=== PATIENT | male | born 1950 | race Caucasian/White ===

== ENCOUNTER → 2023-11-29 11:18 | Outpatient (REF) | payer OTHER, SELFPAY ==
[2023-09-05 08:41] VITALS: BMI 25.7
[2023-09-05 09:07] LABS: Urine Albumin Trace (Neg - Trace); Urine Bilirubin Negative (Negative); Urine Character Clear (Clear); Urine Color Yellow; Urine Glucose 3+ (Negative); Urine Ketone Negative (Negative); Urine Leukocyte Negative (Negative); Urine Nitrite Negative (Negative); Urine Occult Blood Negative (Negative); Urine Specific Gravity 1.015 (<1.030); Urine Urobilinogen Negative (Neg - 1+)
[2023-09-05 09:11] LABS: Hematocrit 43.4 % (39.0-52.0); Hemoglobin 15.3 g/dL (13.0-18.0); Mean Corp Hgb Conc. 35.3 g/dL (33.0-37.0); Mean Corpuscular Hgb 32.8 pg (27.0-31.0); Mean Corpuscular Volume 93.1 fL (80.0-94.0); Platelet Count 186 10^3/uL (130-400); Red Blood Cell Count 4.66 10^6/uL (4.70-6.10); Red Cell Dist. Width 11.5 % (11.5-14.5); White Blood Cell Count 11.7 10^3/uL (4.8-10.8)
[2023-09-05 09:16] LABS: INR 0.95; PT 12.5 Sec (11.4-14.6)
[2023-09-05 09:17] LABS: APTT 28.8 Sec (23.4-35.0)
[2023-09-05 09:37] LABS: Blood Urea Nitrogen 29 mg/dl (9-20); Calcium 9.9 mg/dl (8.4-10.2); Carbon Dioxide 25 mmol/L (22-30); Chloride 94 mmol/L (98-107); Estimated Creatinine Clearance 46 ml/min; Glucose 634 mg/dl (70-99); Potassium 5.7 mmol/L (3.5-5.1); Sodium 128 mmol/L (135-145); eGFR 52.41
--- NOTE | 2023-09-05 12:58 | PTCARENOTE ---
Luanne at 's office was notified of critical value glucose 634 (of note; lab had already called this critical value @ 0944) and K+ 5.7 both collected this am.
--- NOTE | 2023-09-06 13:43 | PTCARENOTE ---
Luanne in office made aware that Dr. Clemente stated pt needs to have blood sugar and potassium under control before elective surgery.
== END ==
LOC: SDSPAT 11:18
PROVIDERS: ATTENDING PHYSICIAN Specialist
DX: Z01.818 Encounter for other preprocedural examination (principal); C67.9 Malignant neoplasm of bladder, unspecified
CPT/HCPCS: 36415; 80048; 81003; 85027; 85610; 85730; 93005

== ENCOUNTER 2024-08-20 08:03 | Inpatient (IN) | payer OTHER, SELFPAY ==
[2024-08-20] VITALS (11 sets, daily range): BP systolic 98–151; BP diastolic 44–76; PULSE 63–83; O2SAT 96; BMI 21.5; BMI 21.9
[2024-08-20 02:10] LABS: % Basophils 0.7 % (0-2); % Eosinophils 0.3 % (0-6); % Immature Granulocytes 0.3 % (0-0.5); % Lymphocytes 13.3 % (20.5-51.1); % Monocytes 5.4 % (1.7-9.3); Absolute Basophils 0.1 10^3/uL (0-0.2); Absolute Lymphocytes 1.8 10^3/uL (1.2-3.4); Absolute Monocytes 0.7 10^3/uL (0.1-0.6); Absolute Neutrophils 10.7 10^3/uL (1.4-6.5); Hemoglobin 14.4 g/dL (13.0-18.0); Mean Corpuscular Hgb 31.3 pg (27.0-31.0); Mean Platelet Volume 11.8 fL (7.4-10.4); Nucleated Red Blood Cells % 0 % (-); Platelet Count 274 10^3/uL (130-400); Red Cell Dist. Width 11.2 % (11.5-14.5); White Blood Cell Count 13.4 10^3/uL (4.8-10.8)
[2024-08-20 03:01] LABS: ALT (SGPT) 19 U/L (0-50); AST (SGOT) 23 U/L (17-59); Albumin 4.3 g/dl (3.5-5.0); Alkaline Phosphatase 140 U/L (38-126); Blood Urea Nitrogen 54 mg/dl (9-20); Calcium 9.8 mg/dl (8.4-10.2); Carbon Dioxide 24 mmol/L (22-30); Chloride 81 mmol/L (98-107); Glucose 756 mg/dl (70-99); Potassium 6.6 mmol/L (3.5-5.1); Sodium 119 mmol/L (135-145); Total Bilirubin 0.9 mg/dl (0.2-1.3); Total Protein 7.4 g/dl (6.3-8.2); eGFR > 60.00
[2024-08-20] MEDS: NSS 1000 IV ×3 (04:02→14:58)
[2024-08-20 04:05] LABS: Glucose - Point of Care > 600 mg/dl (70-99)
--- NOTE | 2024-08-20 04:30 | ED.GENMED ---
History of Present Illness
General
Chief Complaint: Fainting/Passed Out
Source: patient
Exam Limitations: altered mental status
Time Seen by Provider: 08/20/24 03:49
Nursing documentation reviewed up to this point in time: agreed with
History of Present Illness
History of Present Illness:
74-year-old male type II diabetic on metformin for 20 years does not check his sugar does not drink alcohol or smoke has had weight loss polydipsia polyuria, though he tells me has been trying to lose weight, got up to use the [employer] room, passed out
possibly struck his head EMS was called found him hypoglycemic, he has had a prior head injury lives with his family, on no blood thinners
Past History
Past History
ED Past Medical History: NIDDM and Other (Head injury)
ED Past Surgical History: Brain (Unclear if he had surgery after his head injury)
Social History
Tobacco: Smoker
Alcohol: None
Drug: None
Personal:
Living: with family
Employment: Retired
Family History
Family History: Diabetes
Review of Systems
Review of Systems
All Other Systems: Not applicable
Constitutional: Reports weight loss and fatigue; Denies fever
EENT: Reports no symptoms
Respiratory: Reports no symptoms
Cardiac: Reports syncope
ABD/GI: Reports no symptoms
: Reports no symptoms
Musculoskeletal: Reports no symptoms
Neurological: Reports dizzy and weakness
Endocrine: Reports polyuria and polydipsia
Hematologic/Lymphatic: Reports no symptoms
Psychiatric: Reports no symptoms
Phy Exam
Physical Exam
Physical Exam:
Physical Exam
General: 74 male dry lips
Neck: No posterior neck pain no tongue
Heart: Tachycardia
Lungs: no acute respiratory distress. clear bilaterally
Abdomen: Nontender
Neuro: alert and oriented. no focal neurological deficits
Skin: no rash
Psychiatric: cooperative
Extremities: no edema.
Course
Orders/Labs/Results
Orders:
Orders
08/20/24 01:47
ECG [Electrocardiogram (*1)] Urgent
Reason for Study: Syncope
08/20/24 01:48
EKG- Treatment ONCE
08/20/24 01:57
Complete Blood Count/With Diff Urgent
Comprehensive Metabolic Panel Urgent
Glycohemoglobin (HgbA1c) Urgent
08/20/24 03:50
Add On- LAB Urgent
Tests Added?: hemoglobin a1c
0.9% Sodium Chloride 1000 ml [Nss] 1,000 ml IV BOLUS
08/20/24 04:13
Glucose Urgent
08/20/24 04:23
CT Cervical Spine W/o Iv Contr Urgent
Comment:
Reason For Exam: fall
CT Head W/o Iv Contrast Urgent
Comment:
Reason For Exam: fall
Abnormal Lab Results
08/20/24 08/20/24
01:57 04:04
WBC 13.4 H 10^3/uL
(4.8-10.8)
RBC 4.60 L 10^6/uL
(4.70-6.10)
MCH 31.3 H pg
(27.0-31.0)
RDW 11.2 L %
(11.5-14.5)
MPV 11.8 H fL
(7.4-10.4)
Absolute Neuts (auto) 10.7 H 10^3/uL
(1.4-6.5)
Absolute Monos (auto) 0.7 H 10^3/uL
(0.1-0.6)
Neutrophils % 80.0 H %
(42.2-75.2)
Lymphocytes % 13.3 L %
(20.5-51.1)
Sodium 119 L* mmol/L
(135-145)
Potassium 6.6 H* mmol/L
(3.5-5.1)
Chloride 81 L mmol/L
(98-107)
BUN 54 H mg/dl
(9-20)
Glucose 756 H* mg/dl
(70-99)
Alkaline Phosphatase 140 H U/L
(38-126)
POC Glucose > 600 H* mg/dl
(70-99)
08/20/24 01:57
Vital Signs
Initial and Last Documented VS:
Initial Vital Signs
Temp Pulse Resp BP Pulse Ox
98 F 74 22 140/76 98
08/20/24 01:44 08/20/24 01:44 08/20/24 01:44 08/20/24 01:44 08/20/24 01:44
Last Documented Vital Signs
Temp Pulse Resp BP Pulse Ox
97.8 F 68 12 151/72 95
08/20/24 03:48 08/20/24 03:53 08/20/24 03:53 08/20/24 03:53 08/20/24 03:53
MDM/Problems Addressed
Differential Diagnosis Includes:
Vasovagal DKA HHNK electrolyte abnormality occult trauma
MDM/Problems Addressed:
Syncope hyperglycemia
Chronic conditions affecting care: DM
Acute Exacerbation and/or Progression of Chronic Illness: DM
*Radiology
Radiology exam reviewed: preliminary read by ED provider
*Pulse Oximetry
Patient hypoxic: no
*EKG
Interpreted by ED Provider?: Yes
Interpretation: abnormal
Comparison EKG: no comparison EKG present
Heart Rate: 98
Rate: normal
Rhythm: sinus
Ischemia: non-specific ST changes
*Youth Leader Interpretation
Rate: normal
Interpretation: normal
Heart Rate: 88
Rhythm: sinus
*Critical Care Note
Total Time (30-74mins, 75-104mins- exclusive of procedures): 32
Update Note
Update Note:
Update labs are noted suspect uncontrolled diabetes main culprit here will start saline hydration consideration for insulin, EKG noted, hopefully is potassium should correct will check CT to head cervical spine
ED Attending Note
-
Portions of this chart may have been created with voice recognition software.� Occasional wrong word or��sound alike� substitutions may have occurred due to the inherent limitations of voice recognition software.
Discharge Plan
Departure
Prescriptions:
No Action
lisinopril 20 mg Tablet
20 mg PO NOON
metformin 1,000 mg Tablet
1,000 mg PO BID
glimepiride 4 mg Tablet
4 mg PO DAILY
Jardiance 10 mg Tablet
10 mg PO DAILY
Interventions
Interventions:
*Risk Screen - Suicide Last Done: 08/20/24 01:44
*General Assessment Last Done: 08/20/24 03:48
*Neglect/Abuse Screening Last Done: 08/20/24 01:44
ED- Fall Risk Assessment Last Done: 08/20/24 03:48
*ED COVID-19 Vaccine History Last Done: 08/20/24 03:48
ED- Cardiac Assessment Last Done: 08/20/24 03:48
ED- Neurological Assessment Last Done: 08/20/24 03:48
Discharge Date and Time
Print Language: DANISH
[2024-08-20 05:16] LABS: Glucose 739 mg/dl (70-99)
[2024-08-20] MEDS: NOVOLOG vial 10 UNITS SC (05:43)
[2024-08-20 06:27] LABS: Blood Urea Nitrogen 51 mg/dl (9-20); Calcium 9.4 mg/dl (8.4-10.2); Carbon Dioxide 25 mmol/L (22-30); Chloride 86 mmol/L (98-107); Estimated Creatinine Clearance 59 ml/min; Potassium 5.9 mmol/L (3.5-5.1); Sodium 124 mmol/L (135-145); eGFR > 60.00
[2024-08-20 06:44] LABS: Glucose 630 mg/dl (70-99)
--- NOTE | 2024-08-20 06:54 | HPS.HSE ---
Family Physician
-
Family Physician: Niecy Zhong
Chief Complaint
-
Syncope
History of Present Illness
Patient is a 74y M with PMH significant for prior TBI and DM-II who presents to ED for evaluation after syncopal event. History obtained from ED staff and from patient to some extent.
Patient is not sure why he is currently in the hospital. Thinks maybe it was 'stomach problems'. Apparently he fell at home this evening / ? passed out while walking to the bathroom. Family responded to the sound of him falling and 911 was
called. Patient was markedly hyperglycemic for EMS and was brought to the ED for further evaluation.
At the time of my examination, patient is awake and alert. He denies any complaints at present.
He denies chest pain, palpitations, SOB, N/V/D, etc.
Glucose in the ED is significantly elevated.
Medical History
Past Medical History
Past Medical History: Reports Other
Additional Past Medical History:
DM-II
TBI
Hypertension
Past Surgical History: Reports Other
Additional Past Surgical History:
T&A
Salivary Gland Excision
Social History
Tobacco: Smoker (Current every day smoker.)
Alcohol: None
Drug: None
Family History
Family History: Not pertinent
Allergies / Home Medications
Allergies reflects when Allergies were last updated in [facility]
Home Medications with original date entered in [facility]
Allergy/Medication List:
Patient states that his only current medication is metformin.
If medication reconciliation has not been performed, why?: Medication List N/A (TBI - ? unreliable history.)
Review of Systems
-
History Source: Patient
A 12 point ROS was completed and negative except as noted: Yes
Constitutional: Denies Fever or Chills
Respiratory: Denies Cough or Trouble Breathing
Cardiac: Denies Chest Pain or Palpitations
Abdomen/GI: Denies Abdominal Pain, Nausea, Vomiting or Diarrhea
Musculoskeletal: Denies Joint Pain or Edema
Neurological: Denies Dizzy or Headache
Physical Exam
Vital Signs
Vital Signs
Temp Pulse Resp BP Pulse Ox
97.8 F 68 12 151/72 95
08/20/24 03:48 08/20/24 03:53 08/20/24 03:53 08/20/24 03:53 08/20/24 03:53
Physical Exam
General: Other (74y M in no acute distress.)
HEENT: PERRLA and Other (Dry MM.)
Respiratory: Clear; No Wheezes, Rales or Rhonchi
Cardiac: S1/S2 and Regular Rhythm; No Murmur
GI: Soft, Non Tender, Non Distended and Normal Bowel Sounds
Musculoskeletal: No Clubbing, No Cyanosis and No Edema
Neuro: Awake, Alert and Nonfocal/grossly intact; No Oriented
Laboratory Results
-
08/20/24 01:57
08/20/24 06:01
Laboratory Results
Total Bilirubin 0.9 mg/dl (0.2-1.3) 08/20/24 01:57
AST 23 U/L (17-59) 08/20/24 01:57
ALT 19 U/L (0-50) 08/20/24 01:57
Alkaline Phosphatase 140 U/L (38-126) H 08/20/24 01:57
Impression/Plan
-
A/P: Patient is a 74y M with PMH significant for DM-II who presents to ED for evaluation after syncopal episode / fall at home.
Syncope / Fall
- Admit for further evaluation and treatment.
- Likely secondary to hypovolemia / hyperglycemia.
- Monitor on telemetry for any arrhythmia.
- Follow for any recurrent symptoms.
- CT in the ED unremarkable. Not on any blood thinners, etc.
- Follow for any new neurologic changes and consider repeat imaging if indicated.
DM-II with Marked Hyperglycemia
Pseudohyponatremia secondary to the above
- No elevated anion gap c/w DKA.
- Aggressive IVF support and follow for improvement.
- Begin basal : bolus insulin regimen and adjust as needed for adequate control.
- Hold PO medications acutely.
- Update A1C.
Hyperkalemia
Azotemia
- IVFs as noted above.
- Bladder scan protocol / rule out retention as component - though SCr is normal.
Benign Hypertension
- Patient states that he is only on metformin - though prior records include lisinopril and other meds.
- Formal med rec in the AM.
- Follow BP and consider oral agents if needed.
History of TBI
- Patient questionable historian at times given prior h/o TBI / known cognitive impairment.
DVT Prophylaxis: SCDs
Code Status: Full
[2024-08-20 07:10] LABS: Glucose - Point of Care 485 mg/dl (70-99)
[2024-08-20 07:40] LABS: Glucose 463 mg/dl (70-99)
[2024-08-20 09:37] LABS: Glucose - Point of Care 323 mg/dl (70-99)
[2024-08-20] MEDS: LANTUS 0.1 UNITS SC (09:38)
[2024-08-20 09:49] LABS: Potassium 4.5 mmol/L (3.5-5.1)
[2024-08-20] MEDS: NOVOLOG FLEXPEN-MODERATE RESISTANCE SC ×2 (10:03→16:49)
[2024-08-20 10:12] LABS: TSH Reflex To Free T4 1.25 uIU/ml (0.47-4.68)
[2024-08-20 10:40] LABS: Urine Albumin Negative (Neg - Trace); Urine Bilirubin Negative (Negative); Urine Character Clear (Clear); Urine Color Yellow; Urine Glucose 3+ (Negative); Urine Ketone 1+ (Negative); Urine Leukocyte 1+ (Negative); Urine Nitrite Negative (Negative); Urine Occult Blood Negative (Negative); Urine Urobilinogen Negative (Neg - 1+)
[2024-08-20 11:23] LABS: Glucose - Point of Care 336 mg/dl (70-99)
--- NOTE | 2024-08-20 11:29 | EDRN ---
Lunch diet tray ordered for pt.
[2024-08-20 11:46] LABS: Glycohemoglobin (HgbA1c) 19.4 % (4.0-5.6)
--- NOTE | 2024-08-20 12:15 | PN.DE.MGMTRT ---
Insulin Management
- -
08/20/2024 Diabetes Management Consult
Patient admitted with c/o fainting/passed out. 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 Prior to admission patient was ordered metformin 1000 mg BID, Jardiance 10 mg daily, glimepiride 4 mg daily. A1C on admission 19.4%, cr 1,
eGFR > 60.
I spoke with patients nurse who states patient has been confused, pulling out IV, and other devices, so now has a 1:1.
Patient asleep, awakened easily, alert and oriented. Able to discuss his pre hospital diabetes care. States his primary doctor manages his diabetes; he has no idea what an A1C is and if he ever had the test. He states he has been taking his
diabetes meds and has not missed any doses. He states he has a at home who could help him if needed; he is agreeable to me reaching out to discuss with her. I spoke to patients who states she works and her son also works so they would
not be here all the time to help patient.
Glucose on admission 739, he has received novolog 10 units and lantus 10 units, pre lunch glucose 336.
Due to lack of assistance at home will change insulin to 70/30 BID, first dose with dinner 12 units and check 3 AM glucose.
Discussed with nurse.
Diabetes History
- -
Type of Diabetes: 2 requiring insulin
Pre-Admission Diabetes Regimen
08/20/24 08/20/24
:57 06:01
Creatinine 1.1 1.0
Lab Results
Hemoglobin A1c 19.4 % (4.0-5.6) H 08/20/24 01:57
Insulin Pump Settings
IP Diabetes Regimen
08/20/24 08/20/24 08/20/24
04:04 04:13
Glucose 756 H* 739 H*
POC Glucose > 600 H*
08/20/24 08/20/24 08/20/24
06:01 07:08 07:14
Glucose 630 H* 463 H*
POC Glucose 485 H*
08/20/24 08/20/24
09:35 11:21
Glucose
POC Glucose 323 H 336 H
Patient Education
[2024-08-20 13:26] LABS: Urine Bacteria Few (Negative); Urine Red Blood Cell None Seen /HPF (0-2)
[2024-08-20 13:41] LABS: Glucose - Point of Care 338 mg/dl (70-99)
[2024-08-20] MEDS: NOVOLOG FLEXPEN-MODERATE RESISTANCE 7 UNITS SC (13:49)
[2024-08-20] MEDS: NOVOLOG FLEXPEN 5 UNITS SC (13:52)
--- NOTE | 2024-08-20 14:01 | EDRN ---
Pt eating his lunch at this time.
--- NOTE | 2024-08-20 15:01 | W.PN.UPDATE ---
Update Note
Progress Note Update
Correct Na - 130
hgba1c 19.6
Will provide aggressive fluid resuscitation as more than likely has been volume depleted due to hyperglycemia
monitor bmp closely
--- NOTE | 2024-08-20 15:20 | EDRN ---
15:01 ordered BMP drawn and sent to lab at this time prior to pt going up to admission bed.
[2024-08-20 15:47] LABS: Blood Urea Nitrogen 44 mg/dl (9-20); Calcium 7.9 mg/dl (8.4-10.2); Carbon Dioxide 23 mmol/L (22-30); Chloride 102 mmol/L (98-107); Estimated Creatinine Clearance 73 ml/min; Glucose 252 mg/dl (70-99); Potassium 3.7 mmol/L (3.5-5.1); Sodium 131 mmol/L (135-145); eGFR > 60.00
[2024-08-20] MEDS: LR 1000 IV ×3 (15:47→23:15)
[2024-08-20 16:47] LABS: Glucose - Point of Care 136 mg/dl (70-99)
[2024-08-20] MEDS: NOVOLOG MIX 70/30 FLEXPEN 12 UNITS SC (16:51)
[2024-08-20 22:01] LABS: Glucose - Point of Care 215 mg/dl (70-99)
[2024-08-21 02:59] LABS: Glucose - Point of Care 281 mg/dl (70-99)
[2024-08-21 03:45] VITALS: BP 127/67
--- NOTE | 2024-08-21 04:46 | PTCARENOTE ---
received pt this evening AAOx1, only oriented to person and very confused. when asking pt where he is he responds '[facility]', and when asking pt what month and year it is he responds 'September 1986'. pt is unsure of why he is in the hospital. pt
frequently setting off bed alarm through out the night and requesting to leave despite multiple attempts at redirection and education. pt resting in bed at present, will continue to monitor closely.
--- NOTE | 2024-08-21 05:30 | PTCARENOTE ---
pt getting increasingly agitated, pulled IV out, and refusing to leave tele monitor on. IVF on standby. SHEET ROCK APPLIER made aware, plan of care ongoing.
--- NOTE | 2024-08-21 05:33 | W.PN.UPDATE ---
Update Note
Progress Note Update
2533 informed by RN that pt becoming more agitated wanting to leave. Pulled out iv and took tele monitor off. ONly alert to self so unlikely can let pt sign out AMA. Will leave fluids and tele off for now.
[2024-08-21 06:00] VITALS: BMI 21.8
[2024-08-21 07:05] LABS: Glucose - Point of Care 367 mg/dl (70-99)
[2024-08-21 07:45] VITALS: BP 110/55
--- NOTE | 2024-08-21 07:51 | PN.DE.MGMTRT ---
Insulin Management
- -
08/21/2024 Diabetes Management Consult Follow up
Patient admitted 08/20 with c/o fainting/passed out. 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 Prior to admission patient was ordered metformin 1000 mg BID, Jardiance 10 mg daily, glimepiride 4 mg daily. A1C on admission 19.4%,
cr 1, eGFR > 60.
Patient awake, alert confused. He is in a lexii-chair at the nurses station. He has pulled his IV and removed his monitor leads multiple times.
Glucose on admission 739, he has received novolog 10 units and lantus 10 units, pre lunch glucose 336.
08/20 Due to lack of assistance at home insulin changed to 70/30 BID, first dose with dinner 12 units, hs glucose 215, 3AM glucose 281. Fasting glucose 367.
Will increase 70/30 to 18 units with moderate corrective insulin.
I attempted to instruct patient on steps for taking insulin. I provided the printed instructions with pictures of each step to prepare and inject pen. He needs verbal cues for each step even after demonstration x 2. Will return with home pen
needles and try again.
Returned to instruct patient at 11:45, patient continues to need verbal cues for each step of preparing and injecting.
Patient is NOT safe to self inject insulin at this time. Perhaps with reinforcement he will be able to be independent. He does have a 1:1 who is willing to reinforce steps with him.
Patient states he has a glucose monitor at home and tested his glucose 2 times per day. He states the results were running 120 to 250. With A1C of 19.4% it is unrealistic that patient got any result other than > 500 or HI, which is greater than
600 mg/dL Provided Contour Next meter to be sure he has a working glucose monitor.
I spoke to patients 08/20 who states she works and her son also works so they would not be home all the time to help patient.
Discussed with nurse.
Diabetes History
- -
Type of Diabetes: 2 requiring insulin
Pre-Admission Diabetes Regimen
08/20/24
15:19
Creatinine 0.8
Lab Results
Hemoglobin A1c 19.4 % (4.0-5.6) H 08/20/24 01:57
Insulin Pump Settings
IP Diabetes Regimen
08/20/24 08/20/24 08/20/24
09:35 11:21 13:40
Glucose
POC Glucose 323 H 336 H 338 H
08/20/24 08/20/24 08/20/24
15:19 16:45 22:00
Glucose 252 H
POC Glucose 136 H 215 H
08/21/24 08/21/24
02:58 07:04
Glucose
POC Glucose 281 H 367 H
Patient Education
[2024-08-21] MEDS: NOVOLOG FLEXPEN-MODERATE RESISTANCE 9 UNITS SC (07:52)
[2024-08-21] MEDS: NOVOLOG MIX 70/30 FLEXPEN 18 UNITS SC ×2 (08:09→16:53)
[2024-08-21 08:20] LABS: Hematocrit 35.9 % (39.0-52.0); Hemoglobin 12.7 g/dL (13.0-18.0); Mean Corp Hgb Conc. 35.4 g/dL (33.0-37.0); Mean Corpuscular Hgb 30.9 pg (27.0-31.0); Mean Corpuscular Volume 87.3 fL (80.0-94.0); Mean Platelet Volume 11.7 fL (7.4-10.4); Platelet Count 232 10^3/uL (130-400); Red Blood Cell Count 4.11 10^6/uL (4.70-6.10); Red Cell Dist. Width 11.2 % (11.5-14.5); White Blood Cell Count 10.5 10^3/uL (4.8-10.8)
[2024-08-21 08:34] LABS: ALT (SGPT) 14 U/L (0-50); AST (SGOT) 32 U/L (17-59); Albumin 3.2 g/dl (3.5-5.0); Alkaline Phosphatase 92 U/L (38-126); Blood Urea Nitrogen 32 mg/dl (9-20); Calcium 8.6 mg/dl (8.4-10.2); Carbon Dioxide 22 mmol/L (22-30); Chloride 97 mmol/L (98-107); Direct Bilirubin 0.1 mg/dl (0.0-0.4); Estimated Creatinine Clearance 74 ml/min; Glucose 355 mg/dl (70-99); Phosphorus 3.1 mg/dl (2.5-4.5); Potassium 4.6 mmol/L (3.5-5.1); Sodium 127 mmol/L (135-145); Total Bilirubin 0.6 mg/dl (0.2-1.3); Total Protein 6.1 g/dl (6.3-8.2); eGFR > 60.00
[2024-08-21 11:06] VITALS: BP 120/63
[2024-08-21] MEDS: LR 1000 IV ×3 (11:42→18:47)
[2024-08-21 11:44] LABS: Glucose - Point of Care 231 mg/dl (70-99)
[2024-08-21] MEDS: NOVOLOG FLEXPEN-MODERATE RESISTANCE 3 UNITS SC (11:49)
--- NOTE | 2024-08-21 12:31 | CM ---
Pt seen bedside w/ 1:1 staff. Initial assessment completed. Admitted for syncope.
Pt reports that he lives w/ spouse in a 2STH- 5 steps to enter. Pt reports he is independent w/ ambulating, no DME identified for daily functioning.
Pt denies SNF/VN/PT.
Address, point of contact and insurance verified
PCP: Dr. Zhong
Pharmacy: [facility]
PT/OT evaluated pt and is currently recommending skilled rehab at this time. CM discussed SNF w/ pt. Pt disagrees of needing rehab stating he goes to the gym and works out, last time being last Monday. Pt stood up from his chair to show he
doesn't need physical therapy w/ 1:1 supporting him. Pt instructed to sit back down. Per nurse, pt almost fell attempting to reach for walker and definitely needs rehab as his legs will buckle when standing and does not hold any strength.
CM consulted for advanced directive. CM offered paperwork, pt denied needing it
Plan: SNF; pt is currently declining need. CM will discuss w/ spouse
[2024-08-21] MEDS: LR IV (13:13)
--- NOTE | 2024-08-21 14:01 | W.PN.HOSP.TC ---
Today's Communication/Plan
-
insulin regimen
ivf
Assessment / Plan
Assessment / Plan
Physical Exam
General: Other (74y M in no acute distress.)
HEENT: PERRLA and Other (Dry MM.)
Respiratory: Clear; No Wheezes, Rales or Rhonchi
Cardiac: S1/S2 and Regular Rhythm; No Murmur
GI: Soft, Non Tender, Non Distended and Normal Bowel Sounds
Musculoskeletal: No Clubbing, No Cyanosis and No Edema
Neuro: Awake, Alert x1 and Nonfocal/grossly intact; No Oriented
A/P: Patient is a 74y M with PMH significant for DM-II who presents to ED for evaluation after syncopal episode / fall at home. Noted to be severely hyperglycemic
Syncope / Fall
- Admit for further evaluation and treatment.
- Likely secondary to hypovolemia / hyperglycemia.
- Monitor on telemetry for any arrhythmia.
- Follow for any recurrent symptoms.
- CT in the ED unremarkable. Not on any blood thinners, etc.
- Follow for any new neurologic changes and consider repeat imaging if indicated.
-Resuscitation
DM-II with Marked Hyperglycemia
Pseudohyponatremia secondary to the above
- No elevated anion gap c/w DKA.
- Aggressive IVF support and follow for improvement.
- Begin basal : bolus insulin regimen and adjust as needed for adequate control.
- Hold PO medications acutely.
- Update A1C: 19.4
-DM MILLER DISTILLERY consulted, adjust insulin as needed
#Hyponatremia
-more than likely hypovolemic with significant hyperglycemia
-monitor with resuscitation
Hyperkalemia
Azotemia
- IVFs as noted above.
-resolved
Benign Hypertension
- Patient states that he is only on metformin - though prior records include lisinopril and other meds.
- will not add any further bp meds - normotensive
History of TBI
Metabolic Encepholpathy
- Patient questionable historian at times given prior h/o TBI / known cognitive impairment.
-patient not safe to go home, obviously as per hba1ac and lack of orientation
DVT Prophylaxis: SCDs
Code Status: hsq
Anticipated Discharge: 24 - 48 hours
Subjective/Interval History
-
Date of Service: August 21, 2024
sitting in chair , no changes
Objective Data
-
Labs:
Laboratory Results
08/21/24
07:57
WBC 10.5
Hgb 12.7 L
Hct 35.9 L
Plt Count 232
Sodium 127 L
Potassium 4.6
Chloride 97 L
Carbon Dioxide 22
BUN 32 H
Creatinine 0.8
Glucose 355 H
Calcium 8.6
Total Bilirubin 0.6
AST 32
ALT 14
Alkaline Phosphatase 92
Vital Signs:
Vital Signs
Temp Pulse Resp BP Pulse Ox
97.8 F 73 18 120/63 97
08/21/24 11:06 08/21/24 11:06 08/21/24 07:45 08/21/24 11:06 08/21/24 07:45
I&O
08/20/24 08/21/24 08/22/24
06:59 06:59 06:59
Intake Total 1890 / 1890 720 / 720
Output Total 1300 / 1300 400 / 400
Balance 590 / 590 320 / 320
Review of Systems
-
History Source: Patient
All other systems: Not reviewed unless documented
Data Reviewed
-
CT Scan: Report Reviewed by me
Labs: Labs Reviewed by me
--- NOTE | 2024-08-21 14:27 | PTCARENOTE ---
Patient had and assisted fall. Refer to incident report.
[2024-08-21 14:52] VITALS: BMI 21.8
[2024-08-21 15:47] VITALS: BP 113/54; BP 118/58; BP 120/59; PULSE 76; PULSE 83; PULSE 92
[2024-08-21 16:50] LABS: Glucose - Point of Care 191 mg/dl (70-99)
[2024-08-21] MEDS: NOVOLOG FLEXPEN-MODERATE RESISTANCE 1 UNITS SC (16:52)
[2024-08-21] MEDS: HEPARIN 5000 UNITS SC ×2 (16:52→23:23)
[2024-08-21 22:03] LABS: Glucose - Point of Care 100 mg/dl (70-99)
[2024-08-21 23:30] VITALS: BP 118/56
[2024-08-22 02:47] LABS: Glucose - Point of Care 169 mg/dl (70-99)
[2024-08-22] MEDS: ZYPREXA 5 MG IM (03:06)
--- NOTE | 2024-08-22 03:22 | W.PN.UPDATE ---
Update Note
Progress Note Update
RN reported patient trying to leave the room. Patient seen and evaluated. Patient AA Oriented to his name, standing, home security alarm installer at bedside. Upon inquiring where he is currently, responded he is 'at [place] and getting ready to go home'.. Trying to
pull IV line, IV d/c'd at present. Patient noted to be agitated, wanting to leave home now, unable to verbally child guidance counselor, Unable to reorient him at this time. Will wrist restraint for protective intervention and tube removal. Will give Zyprexa IM for
agitation. May need Psychologist
[2024-08-22] MEDS: LR 1000 IV ×2 (04:14→14:28)
--- NOTE | 2024-08-22 04:24 | PTCARENOTE ---
pt increasingly agitated despite multiple attempts to reorient, requesting to leave, standing at the bedside very unsteady. security came to see pt to help deescalate as well as FILLER LEAF CUTTER LONG. FILLER LEAF CUTTER LONG assessed pt and new orders placed for nonviolent soft limb
restraints and zyprexa 5mg IM. will continue to monitor pt closely.
[2024-08-22 07:47] VITALS: BP 146/77
[2024-08-22 07:53] LABS: Hematocrit 33.3 % (39.0-52.0); Hemoglobin 11.9 g/dL (13.0-18.0); Mean Corp Hgb Conc. 35.7 g/dL (33.0-37.0); Mean Corpuscular Hgb 31.2 pg (27.0-31.0); Mean Corpuscular Volume 87.2 fL (80.0-94.0); Mean Platelet Volume 11.3 fL (7.4-10.4); Platelet Count 188 10^3/uL (130-400); Red Blood Cell Count 3.82 10^6/uL (4.70-6.10); Red Cell Dist. Width 11.1 % (11.5-14.5); White Blood Cell Count 9.1 10^3/uL (4.8-10.8)
[2024-08-22 07:55] LABS: Glucose - Point of Care 133 mg/dl (70-99)
--- NOTE | 2024-08-22 08:24 | PN.DE.MGMTRT ---
Insulin Management
- -
08/22/2024 Diabetes Management Consult Follow up
Patient admitted 08/20 with c/o fainting/passed out. 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 Prior to admission patient was ordered metformin 1000 mg BID, Jardiance 10 mg daily, glimepiride 4 mg daily. A1C on admission 19.4%,
cr 1, eGFR > 60.
Patient awake, alert confused. He is in a lexii-chair at the nurses station. He has pulled his IV and removed his monitor leads multiple times.
Glucose on admission 739, he has received novolog 10 units and lantus 10 units, pre lunch glucose 336.
08/20 Due to lack of assistance at home insulin changed to 70/30 BID.
08/21 70/30 increased to 18 units BID with moderate corrective insulin. Glucose improved to 100 @ HS and 133 fasting. 08/22 Will change moderate corrective to low corrective and continue 70/30 at 18 units. Patient is UNSAFE to self administer
insulin at this time
08/21 I attempted to instruct patient on steps for taking insulin. I provided the printed instructions with pictures of each step to prepare and inject pen. He needs verbal cues for each step even after demonstration x 2. Will return with home
pen needles and try again.
Returned to instruct patient at 11:45, patient continues to need verbal cues for each step of preparing and injecting.
Patient is NOT safe to self inject insulin at this time. Perhaps with reinforcement he will be able to be independent. He does have a 1:1 who is willing to reinforce steps with him.
Patient states he has a glucose monitor at home and tested his glucose 2 times per day. He states the results were running 120 to 250. With A1C of 19.4% it is unrealistic that patient got any result other than > 500 or HI, which is greater than
600 mg/dL Provided Contour Next meter to be sure he has a working glucose monitor.
I spoke to patients 08/20 who states she works and her son also works so they would not be home all the time to help patient.
Discussed with nurse.
Diabetes History
- -
Type of Diabetes: 2 requiring insulin
Pre-Admission Diabetes Regimen
08/21/24
07:57
Creatinine 0.8
Lab Results
Hemoglobin A1c 19.4 % (4.0-5.6) H 08/20/24 01:57
Insulin Pump Settings
IP Diabetes Regimen
08/21/24 08/21/24 08/21/24
07:57 11:42 16:48
Glucose 355 H
POC Glucose 231 H 191 H
08/21/24 08/22/24 08/22/24
22:02 02:45 07:54
Glucose
POC Glucose 100 H 169 H 133 H
Meal type: Dinner
Meal type: Lunch
Meal type: Breakfast
Amount consumed: 100%
Amount consumed: 100%
Amount consumed: 100%
Patient Education
[2024-08-22 08:57] LABS: ALT (SGPT) 18 U/L (0-50); AST (SGOT) 37 U/L (17-59); Albumin 3.2 g/dl (3.5-5.0); Alkaline Phosphatase 89 U/L (38-126); Blood Urea Nitrogen 20 mg/dl (9-20); Calcium 8.5 mg/dl (8.4-10.2); Carbon Dioxide 25 mmol/L (22-30); Chloride 101 mmol/L (98-107); Glucose 123 mg/dl (70-99); Potassium 3.9 mmol/L (3.5-5.1); Sodium 135 mmol/L (135-145); Total Bilirubin 0.8 mg/dl (0.2-1.3)
[2024-08-22 09:18] LABS: Estimated Creatinine Clearance 85 ml/min; eGFR > 60.00
[2024-08-22] MEDS: NOVOLOG FLEXPEN-MODERATE RESISTANCE SC (09:19)
[2024-08-22] MEDS: HEPARIN 5000 UNITS SC ×2 (09:20→16:43)
[2024-08-22] MEDS: NOVOLOG MIX 70/30 FLEXPEN 18 UNITS SC ×2 (09:21→16:48)
[2024-08-22 11:41] LABS: Glucose - Point of Care 195 mg/dl (70-99)
[2024-08-22] MEDS: NOVOLOG FLEXPEN-LOW RESISTANCE 1 UNITS SC (11:43)
[2024-08-22 11:54] VITALS: BP 132/103; BP 134/55; BP 88/56; PULSE 76; PULSE 79; PULSE 87
--- NOTE | 2024-08-22 13:50 | W.PN.HOSP.TC ---
Today's Communication/Plan
-
Seroquel and attempt to remove one-to-one
LR bolus, orthos
Assessment / Plan
Assessment / Plan
Physical Exam
General: Other (74y M in no acute distress.)
HEENT: PERRLA and Other (Dry MM.)
Respiratory: Clear; No Wheezes, Rales or Rhonchi
Cardiac: S1/S2 and Regular Rhythm; No Murmur
GI: Soft, Non Tender, Non Distended and Normal Bowel Sounds
Musculoskeletal: No Clubbing, No Cyanosis and No Edema
Neuro: Awake, Alert x1 and Nonfocal/grossly intact; No Oriented
A/P: Patient is a 74y M with PMH significant for DM-II who presents to ED for evaluation after syncopal episode / fall at home. Noted to be severely hyperglycemic
Syncope / Fall
- Admit for further evaluation and treatment.
- Likely secondary to hypovolemia / hyperglycemia.
- Monitor on telemetry for any arrhythmia.
- Follow for any recurrent symptoms.
- CT in the ED unremarkable. Not on any blood thinners, etc.
- Follow for any new neurologic changes and consider repeat imaging if indicated.
-Resuscitation
#Orthostatic Hypotension
- LR bolus now
-may need midodrine and compression stockings/abd binder
DM-II with Marked Hyperglycemia
Pseudohyponatremia secondary to the above
- No elevated anion gap c/w DKA.
- Aggressive IVF support and follow for improvement.
- Begin basal : bolus insulin regimen and adjust as needed for adequate control.
- Hold PO medications acutely.
- Update A1C: 19.4
-DM STRIP CATCHER consulted, adjust insulin as needed
#Hyponatremia, resolved
-more than likely hypovolemic with significant hyperglycemia
-monitor with resuscitation
Hyperkalemia
Azotemia
- IVFs as noted above.
-resolved
Benign Hypertension
- Patient states that he is only on metformin - though prior records include lisinopril and other meds.
- will not add any further bp meds - normotensive
History of TBI
Metabolic Encepholpathy
- Patient questionable historian at times given prior h/o TBI / known cognitive impairment.
-patient not safe to go home, obviously as per hba1ac and lack of orientation
DVT Prophylaxis: hsq
Anticipated Discharge: Within 24 hours
Subjective/Interval History
-
Date of Service: August 22, 2024
agitated overnight, given Zyprexa
Objective Data
-
Labs:
Laboratory Results
08/22/24
07:40
WBC 9.1
Hgb 11.9 L
Hct 33.3 L
Plt Count 188
Sodium 135 D
Potassium 3.9
Chloride 101
Carbon Dioxide 25
BUN 20
Creatinine 0.7
Glucose 123 H
Calcium 8.5
Total Bilirubin 0.8
AST 37
ALT 18
Alkaline Phosphatase 89
Vital Signs:
Vital Signs
Temp Pulse Resp BP Pulse Ox
97.7 F 84 17 146/77 98
08/22/24 11:54 08/22/24 07:47 08/22/24 11:54 08/22/24 07:47 08/22/24 11:54
I&O
08/21/24 08/22/24 08/23/24
06:59 06:59 06:59
Intake Total 1890 / 1890 4020 / 4020
Output Total 1300 / 1300 1600 / 1600
Balance 590 / 590 2420 / 2420
Review of Systems
-
History Source: Patient
All other systems: Not reviewed unless documented
Data Reviewed
-
CT Scan: Report Reviewed by me
Labs: Labs Reviewed by me
--- NOTE | 2024-08-22 14:19 | CM ---
Patient seen at bedside, patient still with 1:1 and indicated that he was resting comfortably. CM called to patient and started to leave a VM for Patient , when someone picked up the phone and stated she was not corina and hung up. CM will
continue to follow for discharge planning needs.
Plan; SNF; pending family contact and choices.
[2024-08-22] MEDS: LR IV (14:27)
[2024-08-22 15:57] VITALS: BP 109/66
[2024-08-22 16:45] LABS: Glucose - Point of Care 120 mg/dl (70-99)
[2024-08-22] MEDS: NOVOLOG FLEXPEN-LOW RESISTANCE SC (16:47)
--- NOTE | 2024-08-22 17:46 | PTCARENOTE ---
Received patient this am AAOX 1. Pt confused. Pt on 1:1. Pt ambulated to bathroom with rolling walker an assistance x1. Tolerated diet well. Pt being transferred to room 430. Report called an patient transferred.
--- NOTE | 2024-08-22 17:56 | PTCARENOTE ---
Patient received at 1730 from [facility] awake and alert, oriented to person . Is restless with mild agitation with redirection. On bed and chair alarm. No distess noted.
[2024-08-22] MEDS: SEROQUEL 12.5 MG PO (21:04)
[2024-08-22 21:40] LABS: Glucose - Point of Care 84 mg/dl (70-99)
[2024-08-22] MEDS: HEPARIN SC (22:50)
[2024-08-22 23:34] VITALS: BP 102/45; BP 118/48; BP 125/59; PULSE 101; PULSE 79; PULSE 87
[2024-08-23 06:00] VITALS: BMI 22.1
[2024-08-23 07:08] LABS: Glucose - Point of Care 243 mg/dl (70-99)
--- NOTE | 2024-08-23 07:22 | PN.DE.MGMTRT ---
Insulin Management
- -
08/23/2024 Diabetes Management Follow up
Patient admitted 08/20 with c/o fainting/passed out. 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 Prior to admission patient was ordered metformin 1000 mg BID, Jardiance 10 mg daily, glimepiride 4 mg daily. A1C on admission 19.4%, cr
1, eGFR > 60.
Patient awake, alert, a bit confused but able to participate in discuss regarding diabetes care. Remains on 1:1 sitter.
Glucose on admission 739, he was initially treated with basal/bolus regimen and was switched to 70/30 BID insulin on 08/20 due to lack of assistance at home.
08/22 70/30 increased to 18 units BID with moderate corrective insulin.
Glucose improved to 84@ HS. He is noted for a 1x elevation of glucose up to 234 this AM
Will make no changes to his current dose, cont 70/30 insulin at 18 units with low corrective
08/21 Attempted to instruct patient on steps for taking insulin. Provided the printed instructions with pictures of each step to prepare and inject pen. He needs verbal cues for each step even after demonstration x 2.
Returned to instruct patient at 11:45, patient continued to need verbal cues for each step of preparing and injecting.
Spoke to patients 08/20 who states she works and her son also works so they would not be home all the time to help patient.
Patient is NOT safe to self inject insulin at this time. Perhaps with reinforcement he will be able to be independent. He does have a 1:1 who is willing to reinforce steps with him.
Patient states he has a glucose monitor at home and tested his glucose 2 times per day. He states the results were running 120 to 250. With A1C of 19.4% it is unrealistic that patient got any result other than > 500 or HI, which is greater than
600 mg/dL Provided Contour Next meter to be sure he has a working glucose monitor.
Diabetes History
- -
Type of Diabetes: 2 requiring insulin
Pre-Admission Diabetes Regimen
08/22/24
07:40
Creatinine 0.7
Lab Results
Hemoglobin A1c 19.4 % (4.0-5.6) H 08/20/24 01:57
Insulin Pump Settings
IP Diabetes Regimen
08/22/24 08/22/24 08/22/24
07:40 07:54 11:39
Glucose 123 H
POC Glucose 133 H 195 H
08/22/24 08/22/24 08/23/24
16:42 21:38 07:06
Glucose
POC Glucose 120 H 84 243 H
Meal type: Breakfast
Amount consumed: 100%
Patient Education
[2024-08-23] MEDS: NOVOLOG MIX 70/30 FLEXPEN 18 UNITS SC ×2 (07:39→16:49)
[2024-08-23] MEDS: NOVOLOG FLEXPEN-LOW RESISTANCE 2 UNITS SC (07:40)
[2024-08-23] MEDS: HEPARIN 5000 UNITS SC ×2 (07:40→23:05)
[2024-08-23 08:09] LABS: Hematocrit 35.4 % (39.0-52.0); Hemoglobin 12.1 g/dL (13.0-18.0); Mean Corp Hgb Conc. 34.2 g/dL (33.0-37.0); Mean Corpuscular Hgb 30.8 pg (27.0-31.0); Mean Corpuscular Volume 90.1 fL (80.0-94.0); Mean Platelet Volume 11.6 fL (7.4-10.4); Platelet Count 194 10^3/uL (130-400); Red Blood Cell Count 3.93 10^6/uL (4.70-6.10); Red Cell Dist. Width 11.2 % (11.5-14.5); White Blood Cell Count 10.1 10^3/uL (4.8-10.8)
[2024-08-23 08:35] LABS: Blood Urea Nitrogen 19 mg/dl (9-20); Calcium 8.5 mg/dl (8.4-10.2); Carbon Dioxide 27 mmol/L (22-30); Chloride 100 mmol/L (98-107); Estimated Creatinine Clearance 75 ml/min; Glucose 253 mg/dl (70-99); Potassium 4.3 mmol/L (3.5-5.1); Sodium 136 mmol/L (135-145); eGFR > 60.00
--- NOTE | 2024-08-23 09:26 | PTCARENOTE ---
Pt getting agitated over concern that his isn't here. Walking around room,standing at the doorway with 1:1 staff. He did call police station who transferred to 911. RN spoke to transit police officer and made him aware pt was in the hospital.
0930 pt called 911 again and hung up so 911 called pt back. RN spoke to them again and updated on status and that pt is safe.
--- NOTE | 2024-08-23 10:05 | CM ---
category manager reviewed patient's chart and met with patient and patient is independent with adl's and ambulation, no dme, patient states he wants to leave the hospital today. category manager reached out to family and left messages at all listed numbers
however there is no answer, case investigator reached out to PCP office Dr. Zhong's office [phone] and spoke with the director critical care, Sybil, who stated that patient has memory issues however has passed mini cog test in office that was
completed by Dr. Zhong. Per physicians office patient's spouse works at [employer] at [employer], .
Plan; Await family update and contact.
[2024-08-23 11:56] LABS: Glucose - Point of Care 119 mg/dl (70-99)
[2024-08-23] MEDS: NOVOLOG FLEXPEN-LOW RESISTANCE SC ×2 (12:01→16:47)
--- NOTE | 2024-08-23 14:40 | W.PN.HOSP.TC ---
Addendum entered and electronically signed by Evelio Valdovinos MD 08/23/24 17:23:
AMBER, resolved
Original Note:
Today's Communication/Plan
-
orthostatics
mri brain
increase seroquel to 25mg bid
glucose control
Assessment / Plan
Assessment / Plan
Physical Exam
General: Other (74y M in no acute distress.)
HEENT: PERRLA and Other (Dry MM.)
Respiratory: Clear; No Wheezes, Rales or Rhonchi
Cardiac: S1/S2 and Regular Rhythm; No Murmur
GI: Soft, Non Tender, Non Distended and Normal Bowel Sounds
Musculoskeletal: No Clubbing, No Cyanosis and No Edema
Neuro: Awake, Alert x1 and Nonfocal/grossly intact; No Oriented
A/P: Patient is a 74y M with PMH significant for DM-II who presents to ED for evaluation after syncopal episode / fall at home. Noted to be severely hyperglycemic
Syncope / Fall
- Admit for further evaluation and treatment.
- Likely secondary to hypovolemia / hyperglycemia.
- Monitor on telemetry for any arrhythmia.
- Follow for any recurrent symptoms.
- CT in the ED unremarkable. Not on any blood thinners, etc.
- Follow for any new neurologic changes and consider repeat imaging if indicated.
-Resuscitation
#Orthostatic Hypotension
- IVF
-may need midodrine and compression stockings/abd binder
-F/u orthostatics
DM-II with Marked Hyperglycemia
Pseudohyponatremia secondary to the above
- No elevated anion gap c/w DKA.
- Aggressive IVF support and follow for improvement.
- Begin basal : bolus insulin regimen and adjust as needed for adequate control.
- Hold PO medications acutely.
- Update A1C: 19.4
-DM ECONOMICS LECTURER consulted, adjust insulin as needed
#Hyponatremia, resolved
-more than likely hypovolemic with significant hyperglycemia
-monitor with resuscitation
Hyperkalemia
Azotemia
- IVFs as noted above.
-resolved
Benign Hypertension
- Patient states that he is only on metformin - though prior records include lisinopril and other meds.
- will not add any further bp meds - normotensive
Metabolic Encepholpathy
-apparently Dr. Zhong performed Cognitive Assessment 03/06/2024 and passed; unfortunately difficult to obtain collateral as no one is picking up contact
- Patient questionable historian at times given prior h/o TBI / known cognitive impairment.
-patient not safe to go home, obviously as per hba1ac and lack of orientation
-MRI brain
-probably dementia, new onset and delirium
-b12, folate, rpr
DVT Prophylaxis: hsq
Anticipated Discharge: Within 24 hours
Subjective/Interval History
-
Date of Service: August 23, 2024
still altered; glucose better controlled
Objective Data
-
Labs:
Laboratory Results
08/23/24
07:49
WBC 10.1
Hgb 12.1 L
Hct 35.4 L
Plt Count 194
Sodium 136
Potassium 4.3
Chloride 100
Carbon Dioxide 27
BUN 19
Creatinine 0.8
Glucose 253 H
Calcium 8.5
Vital Signs:
Vital Signs
Temp Pulse Resp BP Pulse Ox
97.7 F 87 16 102/45 100
08/22/24 23:34 08/22/24 23:34 08/22/24 23:34 08/22/24 23:34 08/22/24 23:34
I&O
08/22/24 08/23/24 08/24/24
06:59 06:59 06:59
Intake Total 4020 / 4020 240 / 240
Output Total 1600 / 1600
Balance 2420 / 2420 240 / 240
Review of Systems
-
History Source: Patient
All other systems: Not reviewed unless documented
Data Reviewed
-
CT Scan: Report Reviewed by me
Labs: Labs Reviewed by me
[2024-08-23 16:00] VITALS: BP 127/54; BP 127/58; BP 128/59; PULSE 71; PULSE 74; PULSE 76
--- NOTE | 2024-08-23 16:27 | PN.CDI ---
CDI
- -
CDI:
Physician Documentation Request
Admit Date: 08/20/24 08:03
Dear Doctor Bonifacio,
Please review the following and provide your response in the progress notes.
Clinical Indicators:
Pt admitted with DM with hyperglycemia / metabolic encephalopathy
Renal functions are as below /Pt did get IVFs
08/20/24 08/20/24 08/22/24
01:57 06:01 07:40
Creatinine 1.1 1.0 0.7
Clarify which of the following accurately represents the patient's renal status:
AMBER
Lab value insignificant
Other ( please specify)
Criteria for AMBER*
1 Increase in serum creatinine by > or = to 0.3 mg/dL (> or = to 26.5 micromol/L) within 48 hours, OR
2 Increase in serum creatinine to > or = to 1.5 times baseline, which is known or presumed to have occurred within 7 days, OR
3 Urine volume < 0.5 nL/kg/hour for six hours
Use of terms such as suspected, likely, concern for, or probable (associated with a specific diagnosis that is being evaluated, monitored, or treated as if it exists) are acceptable and can be coded in the inpatient setting, when documented at the
time of discharge.
Thank you,
Jihan Park RN
CDI Specialist
[facility]
Please use your independent medical judgment in providing your response.
*Source: Kidney Disease: Improving Global Outcomes (KDIGO) 2012
[2024-08-23] MEDS: HEPARIN SC (16:43)
[2024-08-23 16:46] LABS: Glucose - Point of Care 127 mg/dl (70-99)
[2024-08-23] MEDS: GLUCOPHAGE 1000 MG PO (16:48)
[2024-08-23] MEDS: SEROQUEL 25 MG PO (20:20)
[2024-08-23 21:24] LABS: Glucose - Point of Care 222 mg/dl (70-99)
[2024-08-23 23:50] VITALS: BP 103/64
[2024-08-24 06:00] VITALS: BMI 21.8
[2024-08-24 07:15] VITALS: BP 124/56
[2024-08-24 07:33] LABS: Glucose - Point of Care 387 mg/dl (70-99)
[2024-08-24] MEDS: NOVOLOG FLEXPEN-LOW RESISTANCE 5 UNITS SC (08:50)
[2024-08-24] MEDS: NOVOLOG MIX 70/30 FLEXPEN 18 UNITS SC ×2 (08:51→17:58)
[2024-08-24] MEDS: HEPARIN 5000 UNITS SC ×2 (08:55→17:59)
[2024-08-24] MEDS: GLUCOPHAGE 1000 MG PO ×2 (08:56→18:02)
[2024-08-24] MEDS: SEROQUEL 25 MG PO (08:57)
[2024-08-24 09:06] LABS: Blood Urea Nitrogen 20 mg/dl (9-20); Calcium 8.5 mg/dl (8.4-10.2); Carbon Dioxide 26 mmol/L (22-30); Chloride 98 mmol/L (98-107); Estimated Creatinine Clearance 66 ml/min; Glucose 364 mg/dl (70-99); Potassium 4.6 mmol/L (3.5-5.1); Sodium 131 mmol/L (135-145); eGFR > 60.00
[2024-08-24 11:35] LABS: Glucose - Point of Care 152 mg/dl (70-99)
[2024-08-24] MEDS: NOVOLOG FLEXPEN-LOW RESISTANCE 1 UNITS SC (11:59)
[2024-08-24 13:30] VITALS: BP 115/60; BP 119/58; BP 122/57; PULSE 76; PULSE 91; PULSE 95
--- NOTE | 2024-08-24 14:40 | W.PN.HOSP.TC ---
Today's Communication/Plan
-
pending mri brain, rpr, b12, folate
seroquel titration
Assessment / Plan
Assessment / Plan
Physical Exam
General: Other (74y M in no acute distress.)
HEENT: PERRLA and Other (Dry MM.)
Respiratory: Clear; No Wheezes, Rales or Rhonchi
Cardiac: S1/S2 and Regular Rhythm; No Murmur
GI: Soft, Non Tender, Non Distended and Normal Bowel Sounds
Musculoskeletal: No Clubbing, No Cyanosis and No Edema
Neuro: Awake, Alert x1 and Nonfocal/grossly intact; No Oriented
A/P: Patient is a 74y M with PMH significant for DM-II who presents to ED for evaluation after syncopal episode / fall at home. Noted to be severely hyperglycemic
Syncope / Fall
- Likely secondary to hypovolemia / hyperglycemia.
- Monitor on telemetry for any arrhythmia.
- Follow for any recurrent symptoms.
- CT in the ED unremarkable. Not on any blood thinners, etc.
- Follow for any new neurologic changes and consider repeat imaging if indicated.
-Resuscitation
#Orthostatic Hypotension, resolved
DM-II with Marked Hyperglycemia, improving
Pseudohyponatremia secondary to the above
- No elevated anion gap c/w DKA.
- Aggressive IVF support and follow for improvement.
- Begin basal : bolus insulin regimen and adjust as needed for adequate control.
- Hold PO medications acutely.
- Update A1C: 19.4
-DM INSTRUCTOR FLYING consulted, adjust insulin as needed
Metabolic Encepholpathy
-apparently Dr. Zhong performed Cognitive Assessment 03/06/2024 and passed; unfortunately difficult to obtain collateral as no one is picking up contact
- Patient questionable historian at times given prior h/o TBI / known cognitive impairment.
-patient not safe to go home, obviously as per hba1ac and lack of orientation
-MRI brain - pending read
-probably dementia, new onset and delirium
-b12, folate, rpr
#Hyponatremia
-mild
-ctm
Hyperkalemia
Azotemia
- IVFs as noted above.
-resolved
Benign Hypertension
- Patient states that he is only on metformin - though prior records include lisinopril and other meds.
- will not add any further bp meds - normotensive
DVT Prophylaxis: hsq
Anticipated Discharge: 24 - 48 hours
Subjective/Interval History
-
Date of Service: August 24, 2024
still agitated
although more calm than prior
Objective Data
-
Labs:
Laboratory Results
08/24/24
07:36
Sodium 131 L
Potassium 4.6
Chloride 98
Carbon Dioxide 26
BUN 20
Creatinine 0.9
Glucose 364 H
Calcium 8.5
Vital Signs:
Vital Signs
Temp Pulse Resp BP Pulse Ox
98.2 F 82 18 124/56 97
08/24/24 07:15 08/24/24 07:15 08/24/24 07:15 08/24/24 07:15 08/24/24 07:15
I&O
08/23/24 08/24/24 08/25/24
06:59 06:59 06:59
Intake Total 240 / 240 900 / 900
Balance 240 / 240 900 / 900
Review of Systems
-
All other systems: Not reviewed unless documented
Data Reviewed
-
CT Scan: Report Reviewed by me
Labs: Labs Reviewed by me
[2024-08-24 15:07] LABS: Folate 13.2 ng/ml (2.76-20); Vitamin B12 637 pg/ml (239-931)
[2024-08-24 15:10] VITALS: BP 94/44
[2024-08-24 16:59] LABS: Glucose - Point of Care 207 mg/dl (70-99)
[2024-08-24] MEDS: NOVOLOG FLEXPEN-LOW RESISTANCE 2 UNITS SC (18:01)
[2024-08-24] MEDS: SEROQUEL 50 MG PO (20:15)
[2024-08-24] MEDS: MYLICON 80 MG PO (22:15)
[2024-08-24 23:55] VITALS: BP 123/69
[2024-08-25] MEDS: HEPARIN 5000 UNITS SC ×2 (00:14→08:02)
[2024-08-25 02:04] LABS: Glucose - Point of Care 222 mg/dl (70-99)
--- NOTE | 2024-08-25 07:00 | W.PN.UPDATE ---
Update Note
Progress Note Update
RN notified [facility]. patient is c/o abdomen pain and had few loose brown stools. Patient seen and evaluated. Ox1 and reports he has pain in his stomach and do not know how to explain it. Hypoactive BS. states not much flatus. Abdomen soft non tender.
stable VS, afebrile. Simethicone PO given, stool for Norovirus ordered. patient noted to be sleeping comfortable in AM.
[2024-08-25 07:50] LABS: Glucose - Point of Care 285 mg/dl (70-99)
[2024-08-25 07:59] VITALS: BP 147/69
[2024-08-25] MEDS: NOVOLOG MIX 70/30 FLEXPEN 18 UNITS SC ×2 (08:01→16:55)
[2024-08-25] MEDS: NOVOLOG FLEXPEN-LOW RESISTANCE 3 UNITS SC (08:02)
[2024-08-25] MEDS: SEROQUEL 50 MG PO ×2 (08:02→19:48)
[2024-08-25] MEDS: GLUCOPHAGE 1000 MG PO ×2 (08:02→17:09)
[2024-08-25 08:15] LABS: Hemoglobin 11.7 g/dL (13.0-18.0); Mean Corp Hgb Conc. 33.4 g/dL (33.0-37.0); Mean Corpuscular Hgb 31.1 pg (27.0-31.0); Mean Corpuscular Volume 93.1 fL (80.0-94.0); Platelet Count 201 10^3/uL (130-400); Red Blood Cell Count 3.76 10^6/uL (4.70-6.10); Red Cell Dist. Width 11.4 % (11.5-14.5); White Blood Cell Count 6.9 10^3/uL (4.8-10.8)
[2024-08-25 08:44] LABS: Blood Urea Nitrogen 21 mg/dl (9-20); Calcium 9.2 mg/dl (8.4-10.2); Carbon Dioxide 25 mmol/L (22-30); Chloride 97 mmol/L (98-107); Estimated Creatinine Clearance 66 ml/min; Glucose 285 mg/dl (70-99); Potassium 5.1 mmol/L (3.5-5.1); Sodium 132 mmol/L (135-145); eGFR > 60.00
[2024-08-25 11:19] LABS: Glucose - Point of Care 231 mg/dl (70-99)
[2024-08-25] MEDS: NOVOLOG FLEXPEN-LOW RESISTANCE 2 UNITS SC ×2 (12:03→16:55)
--- NOTE | 2024-08-25 13:54 | W.PN.HOSP.TC ---
Today's Communication/Plan
-
hopeful to remove 1-1
glucose control
f/u norovirus
Disposition efforts
Assessment / Plan
Assessment / Plan
Physical Exam
General: Other (74y M in no acute distress.)
HEENT: PERRLA and Other (Dry MM.)
Respiratory: Clear; No Wheezes, Rales or Rhonchi
Cardiac: S1/S2 and Regular Rhythm; No Murmur
GI: Soft, Non Tender, Non Distended and Normal Bowel Sounds
Musculoskeletal: No Clubbing, No Cyanosis and No Edema
Neuro: Awake, Alert x1 and Nonfocal/grossly intact; No Oriented
A/P: Patient is a 74y M with PMH significant for DM-II who presents to ED for evaluation after syncopal episode / fall at home. Noted to be severely hyperglycemic
Syncope / Fall
- Likely secondary to hypovolemia / hyperglycemia.
- Monitor on telemetry for any arrhythmia.
- Follow for any recurrent symptoms.
- CT in the ED unremarkable. Not on any blood thinners, etc.
- Follow for any new neurologic changes and consider repeat imaging if indicated.
-Resuscitation
#Orthostatic Hypotension, resolved
DM-II with Marked Hyperglycemia, improving
Pseudohyponatremia secondary to the above
- No elevated anion gap c/w DKA.
- Aggressive IVF support and follow for improvement.
- Begin basal : bolus insulin regimen and adjust as needed for adequate control.
- Hold PO medications acutely.
- Update A1C: 19.4
-DM RN LPN CNA consulted, adjust insulin as needed
Diarrhea
-f/u norovirus
Metabolic Encephalopathy
-apparently Dr. Zhong performed Cognitive Assessment 03/06/2024 and passed although collateral is stating patient was coming to the doctor every week with no appts; was not picking up call, not coming to the hospital - CM aware
- Patient questionable historian at times given prior h/o TBI / known cognitive impairment.
-patient not safe to go home, obviously as per hba1ac and lack of orientation
-MRI brain - unremarkable
-probably dementia, new onset and delirium
-b12, folate WNL; pending RPR
-Increase seroquel as needed to wean off 1-1
#Hyponatremia
-mild
-ctm
Hyperkalemia
Azotemia
- IVFs as noted above.
-resolved
Benign Hypertension
- Patient states that he is only on metformin - though prior records include lisinopril and other meds.
- will not add any further bp meds - normotensive
DVT Prophylaxis: hsq
Anticipated Discharge: 24 - 48 hours
Subjective/Interval History
-
Date of Service: August 25, 2024
Complains of diarrhea this morning
Objective Data
-
Labs:
Laboratory Results
08/25/24
07:35
WBC 6.9
Hgb 11.7 L
Hct 35.0 L
Plt Count 201
Sodium 132 L
Potassium 5.1
Chloride 97 L
Carbon Dioxide 25
BUN 21 H
Creatinine 0.9
Glucose 285 H
Calcium 9.2
Vital Signs:
Vital Signs
Temp Pulse Resp BP Pulse Ox
97.7 F 91 20 147/69 98
08/25/24 07:59 08/25/24 07:59 08/25/24 07:59 08/25/24 07:59 08/25/24 07:59
I&O
08/24/24 08/25/24 08/26/24
06:59 06:59 06:59
Intake Total 900 / 900 2099
Balance 900 / 900 2099
Review of Systems
-
History Source: Patient
All other systems: Not reviewed unless documented
Data Reviewed
-
CT Scan: Report Reviewed by me
Labs: Labs Reviewed by me
--- NOTE | 2024-08-25 14:20 | CM ---
Chart reviewed. Pt cont. to be on 1:1, hopeful to remove it.
Follow up for norovirus
PT initially recommended skilled rehab, last seen 08/20. Need updated eval
Per nurse, pt is ambulating independently
Pt's spouse contact number updated, marketing community liaison to update in [facility]
Plan: SNF recommended on 08/20. Need updated PT notes
[2024-08-25 16:00] VITALS: BP 103/52; BP 115/55; PULSE 90; PULSE 92
[2024-08-25 16:20] LABS: Glucose - Point of Care 214 mg/dl (70-99)
[2024-08-25] MEDS: HEPARIN SC ×2 (16:57→23:30)
[2024-08-25 21:21] LABS: Glucose - Point of Care 75 mg/dl (70-99)
[2024-08-25 23:55] VITALS: BP 124/68
[2024-08-26 00:09] VITALS: BP 124/68
[2024-08-26 00:31] LABS: Glucose - Point of Care 150 mg/dl (70-99)
[2024-08-26 06:00] VITALS: BMI 21.6
[2024-08-26 07:40] LABS: Glucose - Point of Care 195 mg/dl (70-99)
--- NOTE | 2024-08-26 08:38 | PN.DE.MGMTRT ---
Insulin Management
- -
08/26/2024: Diabetes Management Follow up
Patient admitted 08/20 with c/o fainting/passed out. 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 Prior to admission patient was ordered metformin 1000 mg BID, Jardiance 10 mg daily, glimepiride 4 mg daily. A1C on admission 19.4%, cr
1, eGFR > 60.
Patient awake, alert, working with PT, unable to participate in discussion regarding diabetes care.
Glucose on admission 739, he was initially treated with basal/bolus regimen and was switched to 70/30 BID insulin on 08/20 due to lack of assistance at home.
Current regimen is 18 units BID of 70/30 insulin with moderate corrective insulin.
2/2 premeal glucose elevated 214 to 285 requiring 2-3 units of additional corrective insulin. HS glucose down to 75 last night.
Will increase AM dose to 20 units and continue dinner time dose of 18 units. Cont low corrective with meals
08/21 Attempted to instruct patient on steps for taking insulin. Provided the printed instructions with pictures of each step to prepare and inject pen. He needs verbal cues for each step even after demonstration x 2.
Returned to instruct patient at 11:45, patient continued to need verbal cues for each step of preparing and injecting.
Spoke to patients 08/20 who states she works and her son also works so they would not be home all the time to help patient.
Patient is NOT safe to self inject insulin at this time. Perhaps with reinforcement he will be able to be independent. He does have a 1:1 who is willing to reinforce steps with him.
Patient states he has a glucose monitor at home and tested his glucose 2 times per day. He states the results were running 120 to 250. With A1C of 19.4% it is unrealistic that patient got any result other than > 500 or HI, which is greater than
600 mg/dL Provided Contour Next meter to be sure he has a working glucose monitor.
Diabetes History
- -
Type of Diabetes: 2 requiring insulin
Pre-Admission Diabetes Regimen
08/25/24
07:35
Creatinine 0.9
Lab Results
Hemoglobin A1c 19.4 % (4.0-5.6) H 08/20/24 01:57
Insulin Pump Settings
IP Diabetes Regimen
08/25/24 08/25/24 08/25/24
07:35 11:18 16:19
Glucose 285 H
POC Glucose 231 H 214 H
08/25/24 08/26/24 08/26/24
21:20 00:30 07:39
Glucose
POC Glucose 75 150 H 195 H
Meal type: Dinner
Meal type: Lunch
Meal type: Lunch
Amount consumed: 100%
Amount consumed: 100%
Amount consumed: 80%
Patient Education
[2024-08-26] MEDS: NOVOLOG MIX 70/30 FLEXPEN SC (09:09)
[2024-08-26] MEDS: GLUCOPHAGE 1000 MG PO ×2 (09:10→17:14)
[2024-08-26] MEDS: SEROQUEL 50 MG PO ×2 (09:10→20:28)
[2024-08-26] MEDS: HEPARIN 5000 UNITS SC ×2 (09:10→17:14)
[2024-08-26] MEDS: NOVOLOG FLEXPEN-LOW RESISTANCE 1 UNITS SC ×2 (09:11→17:14)
[2024-08-26] MEDS: NOVOLOG MIX 70/30 FLEXPEN 20 UNITS SC (09:11)
[2024-08-26 09:20] LABS: Hematocrit 33.7 % (39.0-52.0); Hemoglobin 11.1 g/dL (13.0-18.0); Mean Corp Hgb Conc. 32.9 g/dL (33.0-37.0); Mean Corpuscular Hgb 30.6 pg (27.0-31.0); Mean Corpuscular Volume 92.8 fL (80.0-94.0); Mean Platelet Volume 11.1 fL (7.4-10.4); Platelet Count 196 10^3/uL (130-400); Red Blood Cell Count 3.63 10^6/uL (4.70-6.10); Red Cell Dist. Width 11.4 % (11.5-14.5); White Blood Cell Count 5.6 10^3/uL (4.8-10.8)
[2024-08-26 09:58] LABS: Blood Urea Nitrogen 24 mg/dl (9-20); Calcium 8.8 mg/dl (8.4-10.2); Carbon Dioxide 27 mmol/L (22-30); Chloride 96 mmol/L (98-107); Estimated Creatinine Clearance 59 ml/min; Glucose 199 mg/dl (70-99); Potassium 4.8 mmol/L (3.5-5.1); Sodium 130 mmol/L (135-145); eGFR > 60.00
--- NOTE | 2024-08-26 11:05 | CM ---
Addendum entered by Jodee Bethea 08/26/24 14:48:
escrow manager spoke with son, Rishi, patient has has 3 sons, Harjinder, Rishi and Mert.
Original Note:
escrow manager reviewed patient's chart and spoke with spouse, Kim, recommendation is for 24 hour supervision for patient, spouse made aware, per spouse she works evenings at [employer], and son is home during the day, patient's spouse works 4-5 days a
week at [employer]. escrow manager reviewed visiting nurse options and patient's spouse is requesting [facility], family caseworker sent a referral to [facility], will also make a referral to [facility] on [address].
Plan: Home with spouse and son, [facility] and referral to [facility] [address].
[2024-08-26 11:34] LABS: Glucose - Point of Care 334 mg/dl (70-99)
[2024-08-26] MEDS: NOVOLOG FLEXPEN-LOW RESISTANCE 4 UNITS SC (11:44)
--- NOTE | 2024-08-26 12:45 | W.PN.HOSP.TC ---
Today's Communication/Plan
-
see A/P
Assessment / Plan
Assessment / Plan
A/P: 74 yo M with PMH significant for DM-II who presented to ED for evaluation after syncopal episode / fall at home. Noted to be severely hyperglycemic
# Syncope / Fall, Likely secondary to hypovolemia / hyperglycemia.
telemetry without arrhythmia noted.
CT head and MRI brain without acute intracranial abnormality noted.
PT cleared for HH
# Orthostatic Hypotension, resolved
# DM-II with Marked Hyperglycemia
# Pseudohyponatremia secondary to the above
No elevated anion gap c/w DKA.
s/p Aggressive IVF support
A1C 19.4%
Pt was started with insulin, switched to 70/30 BID due to lack of assistance at home, adjusted to 20 units am and cont 18 unit pm
Cont sliding scale
DM BUSINESS OWNER/ENGINEER on board
# Diarrhea may be due to hyperglycemia
f/u norovirus if able
# Metabolic Encephalopathy, probably dementia
apparently Dr. Zhong performed Cognitive Assessment 03/06/2024 and passed although collateral is stating patient was coming to the doctor every week with no appts
Patient questionable historian at times given prior h/o TBI / known cognitive impairment.
patient not safe to go home, obviously as per hba1ac and lack of insight
MRI brain unremarkable
b12, folate WNL; pending RPR
Increased Seroquel 50 mg BID to attempt off 1 to 1
# Hyperkalemia, resolved
# Benign Hypertension
Patient states that he is only on metformin - though prior records include lisinopril and other meds.
BP currently stable without meds
DVT Prophylaxis: HSQ
Dispo: Home with spouse and son, VN and referral to [facility].
d/w RN
attempt to call , call not answered
Anticipated Discharge: 24 - 48 hours
Subjective/Interval History
-
Date of Service: August 26, 2024
Objective Data
-
Labs:
Laboratory Results
08/26/24
07:45
WBC 5.6
Hgb 11.1 L
Hct 33.7 L
Plt Count 196
Sodium 130 L
Potassium 4.8
Chloride 96 L
Carbon Dioxide 27
BUN 24 H
Creatinine 1.0
Glucose 199 H
Calcium 8.8
Vital Signs:
Vital Signs
Temp Pulse Resp BP Pulse Ox
36.8 C 53 20 124/68 99
08/26/24 07:00 08/26/24 07:00 08/26/24 07:00 08/25/24 23:55 08/26/24 07:00
I&O
08/25/24 08/26/24 08/27/24
06:59 06:59 06:59
Intake Total 2099 1400 / 1400
Output Total 300 / 300
Balance 2099 1100 / 1100
Review of Systems
-
All other systems: Reviewed and negative
Physical Exam
-
General: Well Developed, Well Nourished, No Apparent Distress, Comfortable and Conversant; Negative Respiratory Distress
HEENT: Normocephalic, Atraumatic, Nose Appears Normal and Ears Appear Normal; Negative Oxygen
Respiratory: Clear to Auscultation and Non Labored Respirations; Negative Accessory Resp Muscle Use
Cardiac: Regular Rhythm and S1/S2
GI: Soft, Nontender, Nondistended and Normal Bowel Sounds
Skin: Warm and Dry
Neuro: Awake and Alert
Psych: Calm
Data Reviewed
-
Labs: Labs Reviewed by me
--- NOTE | 2024-08-26 13:09 | VNURNOTE ---
Sliver Machine Operator attempted to call to discuss services. no answer, left message. Referral placed in [facility].
--- NOTE | 2024-08-26 14:33 | PTCARENOTE ---
Patient son Ace calling nurses station, reports he only just found out that patient was in the hospital. RN speaking with patient--patient states son can be added as contact.
[2024-08-26 15:00] VITALS: BP 103/52
[2024-08-26 16:42] LABS: Glucose - Point of Care 186 mg/dl (70-99)
[2024-08-26] MEDS: NOVOLOG MIX 70/30 FLEXPEN 18 UNITS SC (17:14)
[2024-08-26 20:47] LABS: Glucose - Point of Care 96 mg/dl (70-99)
[2024-08-26] MEDS: HEPARIN SC (23:07)
[2024-08-27 01:00] VITALS: BP 112/65
[2024-08-27 04:20] VITALS: BP 119/58
--- NOTE | 2024-08-27 04:44 | W.PN.UPDATE ---
Addendum entered and electronically signed by GEORGIA Mckinney 08/27/24 05:46:
Ordered Head CT w/o IV contrast as fall was unwitnessed and patient unreliable historian. Ordered Neuro checks.
Original Note:
Update Note
Progress Note Update
Called by RN to evaluate patient after fall. According to RN, patient fell in bathroom and was found crawling on the floor. Patient refusing assistance, crawled back to bed. Patient w/no complaints of pain, states he is fine and did not hit his
head. Patient uncooperative with exam and refusing any further testing. Patient assessed as able, no obvious signs of injury, bruising, cuts or malformation. Patient is physically aggressive with staff. He is attempting to get OOB and leave.
Restraints ordered, patient removing restraints, tearing off. Nursing digital account supervisor at bedside, restraints reapplied, Zyprexa ordered.
[2024-08-27] MEDS: ZYPREXA 5 MG IM (05:11)
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
[2024-08-27 07:00] VITALS: BP 117/38
--- NOTE | 2024-08-27 07:49 | PN.DE.MGMTRT ---
Insulin Management
- -
08/27/2024: Diabetes Management Follow up
Patient admitted 08/20 with c/o fainting/passed out. 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 Prior to admission patient was ordered metformin 1000 mg BID, Jardiance 10 mg daily, glimepiride 4 mg daily. A1C on admission 19.4%, cr
1, eGFR > 60.
Patient awake, alert, able to participate in discussion regarding diabetes care.
Glucose on admission 739, he was initially treated with basal/bolus regimen and was switched to 70/30 BID insulin on 08/20 due to lack of assistance at home.
Current regimen is 18 units BID of 70/30 insulin with moderate corrective insulin.
2/3 AM dose of 70/30 increased to 20 units, premeal glucose 195 to 334 requiring 2-4 units of additional corrective insulin. Dinner dose of 70/30 18 units, HS glucose down to 96 last night.
Will continue low corrective with meals
08/21 Attempted to instruct patient on steps for taking insulin. Provided the printed instructions with pictures of each step to prepare and inject pen. He needs verbal cues for each step even after demonstration x 2.
Returned to instruct patient at 11:45, patient continued to need verbal cues for each step of preparing and injecting.
Spoke to patients 08/20 who states she works and her son also works so they would not be home all the time to help patient.
Patient is NOT safe to self inject insulin at this time. Perhaps with reinforcement he will be able to be independent. He does have a 1:1 who is willing to reinforce steps with him.
Patient states he has a glucose monitor at home and tested his glucose 2 times per day. He states the results were running 120 to 250. With A1C of 19.4% it is unrealistic that patient got any result other than > 500 or HI, which is greater than
600 mg/dL Provided Contour Next meter to be sure he has a working glucose monitor.
Diabetes History
- -
Pre-Admission Diabetes Regimen
08/26/24
07:45
Creatinine 1.0
Lab Results
Hemoglobin A1c 19.4 % (4.0-5.6) H 08/20/24 01:57
Insulin Pump Settings
IP Diabetes Regimen
08/26/24 08/26/24 08/26/24
07:45 11:33 16:41
Glucose 199 H
POC Glucose 334 H 186 H
08/26/24
20:47
Glucose
POC Glucose 96
Meal type: Lunch
Amount consumed: 100%
Patient Education
[2024-08-27 07:53] LABS: Glucose - Point of Care 237 mg/dl (70-99)
[2024-08-27] MEDS: NOVOLOG FLEXPEN-LOW RESISTANCE 2 UNITS SC (08:07)
[2024-08-27] MEDS: NOVOLOG MIX 70/30 FLEXPEN 20 UNITS SC (08:07)
[2024-08-27] MEDS: GLUCOPHAGE 1000 MG PO (08:08)
[2024-08-27] MEDS: HEPARIN 5000 UNITS SC (08:09)
[2024-08-27] MEDS: SEROQUEL 50 MG PO (08:09)
--- NOTE | 2024-08-27 08:43 | W.PN.HOSP.TC ---
Addendum entered and electronically signed by Charisse Sen MD 08/27/24 13:49:
total DC time 40 min
Original Note:
Today's Communication/Plan
-
see A/P
Assessment / Plan
Assessment / Plan
A/P: 74 yo M with PMH significant for DM-II who presented to ED for evaluation after syncopal episode / fall at home. Noted to be severely hyperglycemic
# Syncope / Fall, Likely secondary to hypovolemia / hyperglycemia.
telemetry without arrhythmia noted.
CT head and MRI brain without acute intracranial abnormality noted.
Pt fell dental office assistant of 08/27, repeat CT head no acute intracranial abnormality noted.
Need PT OT to reevaluate for ambulation
# Orthostatic Hypotension, resolved
# DM-II with Marked Hyperglycemia
# Pseudohyponatremia secondary to the above
No elevated anion gap c/w DKA.
s/p Aggressive IVF support
A1C 19.4%
Pt was started with insulin, switched to 70/30 BID due to lack of assistance at home, adjusted to 20 units am and cont 18 unit pm
Cont sliding scale
DM ECOLOGY PROFESSOR on board
# Diarrhea may be due to hyperglycemia
f/u norovirus if able
# Metabolic Encephalopathy, probably dementia
apparently Dr. Zhong performed Cognitive Assessment 03/06/2024 and passed although collateral is stating patient was coming to the doctor every week with no appts
Patient questionable historian at times given prior h/o TBI / known cognitive impairment.
patient not safe to go home, obviously as per hba1ac and lack of insight
MRI brain unremarkable
b12, folate WNL; pending RPR
Increased Seroquel 50 mg BID
Continue to require 1 to 1
# Hyperkalemia, resolved
# Benign Hypertension
Patient states that he is only on metformin - though prior records include lisinopril and other meds.
BP currently stable without meds
DVT Prophylaxis: HSQ
Dispo: Home with spouse and son, [facility] and referral to [facility].
d/w RN
DW CM
Anticipated Discharge: Within 24 hours
Subjective/Interval History
-
Date of Service: August 27, 2024
Objective Data
-
Labs:
Laboratory Results
08/27/24
07:58
Sodium Pending
Potassium Pending
Chloride Pending
Carbon Dioxide Pending
BUN Pending
Creatinine Pending
Glucose Pending
Calcium Pending
Vital Signs:
Vital Signs
Temp Pulse Resp BP Pulse Ox
36.7 C 80 18 117/38 97
08/27/24 07:00 08/27/24 07:00 08/27/24 07:00 08/27/24 07:00 08/27/24 07:00
I&O
08/26/24 08/27/24 08/28/24
06:59 06:59 06:59
Intake Total 1400 / 1400 1800 / 1800
Output Total 300 / 300
Balance 1100 / 1100 1800 / 1800
Review of Systems
-
All other systems: Reviewed and negative
Physical Exam
-
General: Well Developed, Well Nourished, No Apparent Distress, Comfortable and Conversant; Negative Respiratory Distress
HEENT: Normocephalic, Atraumatic, Nose Appears Normal and Ears Appear Normal; Negative Oxygen
Respiratory: Clear to Auscultation and Non Labored Respirations; Negative Accessory Resp Muscle Use
Cardiac: Regular Rhythm and S1/S2
GI: Soft, Nontender, Nondistended and Normal Bowel Sounds
Skin: Warm and Dry
Neuro: Awake and Alert
Psych: Calm; Negative Intact Judgement/Insight
Data Reviewed
-
Labs: Labs Reviewed by me
[2024-08-27 08:46] LABS: Calcium 8.5 mg/dl (8.4-10.2); Carbon Dioxide 26 mmol/L (22-30); Chloride 97 mmol/L (98-107); Estimated Creatinine Clearance 66 ml/min; Glucose 250 mg/dl (70-99); Sodium 133 mmol/L (135-145); eGFR > 60.00
--- NOTE | 2024-08-27 08:47 | CM ---
Addendum entered by Jodee Bethea 08/27/24 09:33:
corporate accounting manager spoke with physician and plan is to clear patient for discharge today, home with family and VN, case management associate discussed with patient's spouse possible placement in assisted living, and provided patient's spouse with information on [facility] contacted.
Plan; Home today with VN, son, Rishi to transport
Original Note:
Chart reviewed and patient is now on 1:1, patient was agitated overnight, plan was for patient to go home with family who were to provide supervision for patient at home. Patient was very active prior to admission.
Plan; To follow with patient progress.
[2024-08-27 08:56] LABS: Blood Urea Nitrogen 26 mg/dl (9-20)
[2024-08-27 11:25] VITALS: BP 114/52
[2024-08-27 11:35] LABS: Syphilis/T. pallidum Ab Reflex Negative (Negative)
--- NOTE | 2024-08-27 13:40 | W.DCSUMMARY ---
Discharge Summary
Discharge Data
Date of Admission: 08/20/24
Date of Discharge: 08/27/24
-
Pending Results: No
Hospital Course
Principal Diagnosis:
Syncope/fall, likely secondary to hypovolemia / hyperglycemia on admission.
Hyperglycemia on admission without DKA, now insulin-dependent diabetes
Metabolic Encephalopathy, likely due to dementia
Chronic Diagnoses:�
Benign Hypertension. BP currently stable without meds
Orthostatic Hypotension, resolved
Consultations:�
Diabetes nurse practitioner
Procedures:�
None
Clinical course:�
This is a 74-year-old male, with past medical history as stated above, who presented with syncope/fall at home. He was noted to be severely hyperglycemic on admission.
Problem 1:
Syncope/fall, likely secondary to hypovolemia / hyperglycemia on admission.
His CT head and MRI brain were without acute intracranial abnormality noted.
Telemetry was without arrhythmia.
PT OT cleared the patient for home health.
Problem 2:
Metabolic encephalopathy, likely dementia.
His MRI brain was unremarkable.
He was requiring one-to-one while in the hospital due to intermittent agitation likely ing.
He was started with Seroquel 50 mg twice daily while in the hospital; this was not continued following discharge back home.
Problem 3:
Hyperglycemia on admission without DKA, now insulin-dependent diabetes.
His A1C was noted to be at extremely high 19.4%.
Pt was started with insulin, switched to 70/30 BID due to lack of assistance at home; insulin adjusted to 20 units am and cont 18 unit pm.
As for the rest of his medical problems, they were stable during his hospital stay.
Discharge Plan
-
Patient Disposition: Home with Home Care
Discharge Diagnosis/Procedures: Syncope / Fall, Likely secondary to hypovolemia / hyperglycemia;
Now insulin dependent diabetes (A1C 19.4%);
suspect underlying dementia;
Hyperkalemia (resolved)
Condition: Fair
Diet: As tolerated and Diabetic, Carb Controlled
Activity: As tolerated
Driving Restrictions: No driving
Blood Work: BMP in 1 week with result to your PCP
Referrals:
Niecy Zhong MD [Family Provider] - in less than 1 week
Additional Discharge Medication Instructions: Continue insulin 70/30 at 20 units in the morning and 18 units in the afternoon.
Take metformin 1000 mg twice daily
Prescriptions:
New
metformin 1,000 mg Tablet
1,000 mg PO BID@0800,1700 Qty: 60 0RF
(DME) blood-glucose meter [ReliOn All-In-One Meter] Kit
Qty: 1 0RF
Rx Instructions:
As Directed
insulin asp prt-insulin aspart [Novolog Mix 70-30FlexPen U-100] 100 unit/mL (70-30) Insulin Pen
18 unit SC .@5pm Qty: 5 0RF
insulin asp prt-insulin aspart [Novolog Mix 70-30FlexPen U-100] 100 unit/mL (70-30) Insulin Pen
20 unit SC DAILY Qty: 5 0RF
(DME) pen needle, diabetic [BD Ultra-Fine Berta Pen Needle] 32 gauge x 5/32' Needle
Qty: 200 0RF
Rx Instructions:
As Directed
Discontinued
metformin 1,000 mg Tablet
1,000 mg PO DAILY
Discharge Orders:
Discharge Patient (As Directed); Ordered 08/27/24
Ordered By: Charisse Sen
Discharge Date and Time
Discharge Date/Time: 08/27/24 11:53
Print Language: J[place]
== END 2024-08-27 11:53 | disposition home health service (06) | DRG 637 ==
LOC: 4 WEST ACU 08:03
PROVIDERS: Internal Medicine; ADMITTING PHYSICIAN Hospitalist; ATTENDING PHYSICIAN Internal Medicine; EMERGENCY PHYSICIAN Emergency Medicine; FAMILY PHYSICIAN Family Medicine
DX: E11.65 Type 2 diabetes mellitus with hyperglycemia (principal); G93.41 Metabolic encephalopathy; N17.9 Acute kidney failure, unspecified; F03.911 Unspecified dementia, unspecified severity, with agitation; I10 Essential (primary) hypertension; E87.5 Hyperkalemia; I95.1 Orthostatic hypotension; F17.200 Nicotine dependence, unspecified, uncomplicated; R19.7 Diarrhea, unspecified; E86.1 Hypovolemia; Z87.820 Personal history of traumatic brain injury; Z79.84 Long term (current) use of oral hypoglycemic drugs
CPT/HCPCS: 70450; 70551; 72125; 80048; 80053; 81003; 81015; 82248; 82607; 82746; 82947; 82962; 83036; 83735; 84100; 84132; 84443; 85025; 85027; 86780; 87086; 93005; 96360; 96372; 97162; 97166; 97530; 99291; 99406; J2358

== ENCOUNTER 2024-11-11 07:46 | Inpatient (IN) | payer OTHER, SELFPAY ==
[2024-11-08 02:12] VITALS: BP 144/71
[2024-11-08 02:57] LABS: % Basophils 0.6 % (0-2); % Eosinophils 0.8 % (0-6); % Immature Granulocytes 0.3 % (0-0.5); % Lymphocytes 16.9 % (20.5-51.1); % Monocytes 6.7 % (1.7-9.3); % Neutrophils 74.7 % (42.2-75.2); Absolute Basophils 0.1 10^3/uL (0-0.2); Absolute Eosinophils 0.1 10^3/uL (0-0.7); Absolute Lymphocytes 2.1 10^3/uL (1.2-3.4); Absolute Monocytes 0.8 10^3/uL (0.1-0.6); Absolute Neutrophils 9.4 10^3/uL (1.4-6.5); Hematocrit 36.6 % (39.0-52.0); Hemoglobin 12.9 g/dL (13.0-18.0); Mean Corp Hgb Conc. 35.2 g/dL (33.0-37.0); Mean Corpuscular Hgb 30.4 pg (27.0-31.0); Mean Corpuscular Volume 86.3 fL (80.0-94.0); Mean Platelet Volume 11.2 fL (7.4-10.4); Nucleated Red Blood Cells % 0 % (-); Platelet Count 248 10^3/uL (130-400); Red Blood Cell Count 4.24 10^6/uL (4.70-6.10); Red Cell Dist. Width 12.7 % (11.5-14.5); White Blood Cell Count 12.6 10^3/uL (4.8-10.8)
[2024-11-08 03:00] VITALS: BMI 20.5
[2024-11-08 03:18] LABS: Urine Albumin 3+ (Neg - Trace); Urine Bilirubin Negative (Negative); Urine Character Cloudy (Clear); Urine Color Red; Urine Glucose 4+ (Negative); Urine Ketone Negative (Negative); Urine Leukocyte 2+ (Negative); Urine Nitrite Negative (Negative); Urine Occult Blood 4+ (Negative); Urine Specific Gravity 1.015 (<1.030); Urine Urobilinogen Negative (Neg - 1+)
[2024-11-08 03:20] LABS: ALT (SGPT) 10 U/L (0-50); AST (SGOT) 19 U/L (17-59); Albumin 4.3 g/dl (3.5-5.0); Alkaline Phosphatase 128 U/L (38-126); Blood Urea Nitrogen 26 mg/dl (9-20); Calcium 9.5 mg/dl (8.4-10.2); Carbon Dioxide 24 mmol/L (22-30); Chloride 91 mmol/L (98-107); Estimated Creatinine Clearance 70 ml/min; Glucose 782 mg/dl (70-99); Potassium 5.1 mmol/L (3.5-5.1); Sodium 126 mmol/L (135-145); Total Bilirubin 0.6 mg/dl (0.2-1.3); Total Protein 7.3 g/dl (6.3-8.2); eGFR > 60.00
--- NOTE | 2024-11-08 03:28 | ED.GENMED ---
History of Present Illness
General
Chief Complaint: Urinary Symptoms
Source: patient
Exam Limitations: none
Time Seen by Provider: 11/08/24 02:38
Nursing documentation reviewed up to this point in time: agreed with
History of Present Illness
History of Present Illness:
74-year-old male past medical history of previous UTIs, diabetes presenting to the emergency department today with concerns of hematuria since this morning also some urgency and frequency. Patient lives he feels like he is emptying his bladder
well. Denies any chest pain shortness of breath.
Past History
Past History
ED Past Medical History: NIDDM and Other (Head injury)
ED Past Surgical History: Brain (Unclear if he had surgery after his head injury)
Social History
Tobacco: Smoker
Alcohol: None
Drug: None
Personal:
Living: with family
Employment: Retired
Family History
Family History: Diabetes
Review of Systems
Review of Systems
Allergies reviewed?: Yes
All Other Systems: ROS reviewed and negative except as documented in HPI and ROS
Phy Exam
Physical Exam
Physical Exam:
GENERAL: Alert , in no apparent distress
EYE: pupils equal and reactive
NECK: Supple, no significant adenopathy.
ENT: o/p clr, mmm.
CARDIAC: Regular rate and rhythm .
LUNGS: Clear breath sounds bilaterally, no acute respiratory distress, no wheezes/rales/rhonchi
ABDOMEN: Soft, without focal tenderness, no r/g, no cvat
NEUROLOGICAL: Alert and oriented, no focal neuro deficits
SKIN: Warm and dry, skin intact.
MUSCULOSKELETAL: No edema, well perfused.
PSYCH: Normal and appropriate interaction.
Course
Orders/Labs/Results
Orders:
Orders
11/08/24 02:33
Complete Blood Count/With Diff Urgent
Comprehensive Metabolic Panel Urgent
11/08/24 02:38
Bladder Scan- Treatment ONCE
11/08/24 03:02
Urinalysis Reflex To Culture Urgent
Date Specimen was Collected: 11/08/24
Time Specimen was Collected: 02:26
Urine Microscopic Reflex Cult Urgent
Urine Culture Urgent
CHUY Source: U
Specimen Description:
Date Specimen was Collected: 11/08/24
Time Specimen was Collected: 02:26
11/08/24 03:24
Venous Blood Gas Urgent
%Oxygen/Room Air: 99
Insulin Human Regular [Novolin R] 10 units IV NOW STA
11/08/24 03:31
0.9% Sodium Chloride 1000 ml [Nss] 1,000 ml IV BOLUS
11/08/24 05:57
CefTRIAXone [Rocephin] 2,000 mg IV NOW STA
Abnormal Lab Results
11/08/24 11/08/24 11/08/24
02:33 03:02 05:54
WBC 12.6 H 10^3/uL
(4.8-10.8)
RBC 4.24 L 10^6/uL
(4.70-6.10)
Hgb 12.9 L g/dL
(13.0-18.0)
Hct 36.6 L %
(39.0-52.0)
MPV 11.2 H fL
(7.4-10.4)
Absolute Neuts (auto) 9.4 H 10^3/uL
(1.4-6.5)
Absolute Monos (auto) 0.8 H 10^3/uL
(0.1-0.6)
Lymphocytes % 16.9 L %
(20.5-51.1)
Sodium 126 L mmol/L
(135-145)
Chloride 91 L mmol/L
(98-107)
BUN 26 H mg/dl
(9-20)
Glucose 782 H* mg/dl
(70-99)
Alkaline Phosphatase 128 H U/L
(38-126)
Ur Occult Blood Reflex 4+ A
(Negative)
Leukocyte Esterase Rfl 2+ A
(Negative)
Urine RBC >100 A /HPF
(0-2)
Urine Glucose 4+ A
(Negative)
Urine Albumin (Reflex) 3+ A
(Neg - Trace)
POC Glucose 353 H mg/dl
(70-99)
11/08/24 02:33
11/08/24 02:33
Vital Signs
Initial and Last Documented VS:
Initial Vital Signs
Temp Pulse Resp BP Pulse Ox
98.4 F 80 22 144/71 99
11/08/24 02:12 11/08/24 02:12 11/08/24 02:12 11/08/24 02:12 11/08/24 02:12
Last Documented Vital Signs
Temp Pulse Resp BP Pulse Ox
98.4 F 62 16 106/67 100
11/08/24 02:12 11/08/24 05:05 11/08/24 05:05 11/08/24 05:05 11/08/24 05:05
MDM/Problems Addressed
MDM/Problems Addressed:
74-year-old male presenting to the emergency department today with concerns of hematuria starting this morning also frequency and urgency. Upon arrival vital signs are normal patient no distress no abdominal pain. Patient is able to urinate. Labs
showing significantly elevated glucose level of 780. No evidence of DKA normal anion gap no ketones in his urine. He claims that he missed his dose of metformin today. When reviewing previous inpatient notes from his hospital visit 2 months ago
he was prescribed insulin was started on insulin and it seemed to be clear that he was prescribed insulin and 1 was expected to take this moving forward. He claims that he was unaware of this and does not remember being admitted to the hospital 2
months ago. He lives at home with his does not have any additional home care. Concerning his neck significant hyperglycemia likely UTI plan to admit for further treatment and care management consultation.
*Critical Care Note
Total Time (30-74mins, 75-104mins- exclusive of procedures): Not Applicable
ED Attending Note
-
Portions of this chart may have been created with voice recognition software.� Occasional wrong word or��sound alike� substitutions may have occurred due to the inherent limitations of voice recognition software.
Discharge Plan
Departure
Patient Disposition: Admit
Date of Disposition: 11/08/24
Time of Disposition: 06:02
Admit to: Med/Surg
Admit to doctor: Beti
Presentation/result/management discussed w/ accepting MD/DO: Hospitalist
Patient with high blood pressure during this ER visit?: No
Condition: Good
Covid-19: Not Applicable
Discharge Problem:
Acute hyperglycemia, Acute UTI, Hematuria
Prescriptions:
No Action
metformin 1,000 mg Tablet
1,000 mg PO BID@0800,1700 Qty: 60 0RF
(DME) blood-glucose meter [ReliOn All-In-One Meter] Kit
Qty: 1 0RF
Rx Instructions:
As Directed
insulin asp prt-insulin aspart [Novolog Mix 70-30FlexPen U-100] 100 unit/mL (70-30) Insulin Pen
18 unit SC .@5pm Qty: 5 0RF
insulin asp prt-insulin aspart [Novolog Mix 70-30FlexPen U-100] 100 unit/mL (70-30) Insulin Pen
20 unit SC DAILY Qty: 5 0RF
(DME) pen needle, diabetic [BD Ultra-Fine Berta Pen Needle] 32 gauge x 5/32' Needle
Qty: 200 0RF
Rx Instructions:
As Directed
(DME) Accu-Chek Guide test strips Strip
Qty: 100 0RF
Rx Instructions:
As Directed
insulin asp prt-insulin aspart [Novolog Mix 70-30FlexPen U-100] 100 unit/mL (70-30) Insulin Pen
18 unit SC BID@0800,1700 Qty: 5 0RF
(DME) blood-glucose meter [Accu-Chek Guide Glucose Meter] Misc
Qty: 1 0RF
Rx Instructions:
As Directed
Referrals:
UNKNOWN - PT DOES,NOT KNOW [Family Provider] -
Interventions
Interventions:
*Risk Screen - Suicide Last Done: 11/08/24 02:25
*General Assessment Last Done: 11/08/24 02:51
*Neglect/Abuse Screening Last Done: 11/08/24 02:51
*ED- Fall Risk Assessment Last Done: 11/08/24 02:51
*ED COVID-19 Vaccine History Last Done: 11/08/24 02:51
ED-Male Genitourinary Assessment Last Done: 11/08/24 02:51
Discharge Date and Time
Print Language: UPPER SORBIAN
[2024-11-08] MEDS: NOVOLIN R 10 UNITS IV (03:42)
[2024-11-08] MEDS: NSS 1000 IV ×3 (03:44→19:25)
[2024-11-08 05:03] LABS: Urine Mucus Moderate
[2024-11-08 05:04] LABS: Urine Amorphous Seen; Urine Squamous Cell SEEN /LPF (Few)
[2024-11-08 05:05] VITALS: BP 106/67
[2024-11-08 05:05] LABS: Urine Red Blood Cell >100 /HPF (0-2)
[2024-11-08 05:56] LABS: Glucose - Point of Care 75 mg/dl (70-99)
[2024-11-08 05:56] LABS: Glucose - Point of Care 353 mg/dl (70-99)
[2024-11-08] MEDS: ROCEPHIN 2000 MG IV (06:29)
[2024-11-08] MEDS: FLUSH (NSS) 1 FLUSH IV (06:39)
--- NOTE | 2024-11-08 07:04 | HPS.HSE ---
Family Physician
-
Family Physician: NOT KNOW UNKNOWN - PT DOES
Chief Complaint
-
Urinary symptoms
History of Present Illness
This is a 74-year-old with past medical history of insulin-dependent diabetes, hypertension, dementia presenting to the emergency department for concern for hematuria. Reports that he has had pneumaturia for some time now but is worse over the last
few days with increasing urinary frequency as well as urgency. He denies fevers or chills. He does report feeling weak and dehydrated. He denies any dizziness. Denies loss of consciousness. Denies any nausea vomiting or diarrhea. Patient was
recently admitted to the hospital with uncontrolled diabetes and started on insulin. He reports that he is not aware of having been started on insulin and did not pickler helper the insulin prescription. He has not been using insulin since his discharge
from the hospital. When he arrived in the emergency department was found to be hyperglycemic to 700s. He denies aspirin, NSAIDs and is not on any blood thinners.
In the emergency department he was afebrile, blood pressure was 106/60 with a pulse of 62 and satting 100% on room air. White count was 12.6 hemoglobin 12.9 platelet 48. Is chemistries notable for a sodium of 126 corrected to 137, potassium 5.1
bicarb 24, BUN/creatinine 20 and 0.8 respectively. Glucose was 72. UA with significant hematuria, urine with gross hematuria, positive leukocyte esterase, bacteria WBCs could not be evaluated. Negative nitrites.
Medical History
Past Medical History
Past Medical History: Reports Other
Additional Past Medical History:
DM-II
TBI
Hypertension
Past Surgical History: Reports Other
Additional Past Surgical History:
T&A
Salivary Gland Excision
Social History
Tobacco: Smoker (Current every day smoker.)
Alcohol: None
Drug: None
Family History
Family History: Not pertinent
Allergies / Home Medications
Allergies reflects when Allergies were last updated in [facility].
Home Medications with original date entered in [facility]
Allergy/Medication List:
Allergies
Allergy/AdvReac Type Severity Reaction Status Date / Time
aspirin Allergy Rash Verified 11/08/24 02:25
Penicillins Allergy Rash Verified 11/08/24 02:25
Home Medications
blood-glucose meter (ReliOn All-In-One Meter kit) #1 ea 08/27/24
insulin aspar prot-insulin aspart 100 unit/mL (70-30) subcutaneous pen (Novolog Mix 70-30FlexPen U-100) 18 unit (0.18 mL) SC .@5pm #5 ea 08/27/24
insulin aspar prot-insulin aspart 100 unit/mL (70-30) subcutaneous pen (Novolog Mix 70-30FlexPen U-100) 20 unit (0.2 mL) SC DAILY #5 ea 08/27/24
metformin 1,000 mg tablet 1,000 mg PO BID@0800,1700 #60 tabs 08/27/24
pen needle, diabetic 32 gauge x 5/32' (BD Ultra-Fine Berta Pen Needle) #200 ea 08/27/24
blood sugar diagnostic (Accu-Chek Guide test strips) #100 ea 08/28/24
blood-glucose meter (Accu-Chek Guide Glucose Meter) #1 ea 08/28/24
insulin aspar prot-insulin aspart 100 unit/mL (70-30) subcutaneous pen (Novolog Mix 70-30FlexPen U-100) 18 unit (0.18 mL) SC BID@0800,1700 #5 ea 08/28/24
If medication reconciliation has not been performed, why?: Medication List N/A (TBI - ? unreliable history.)
Review of Systems
-
History Source: Patient
Constitutional: Reports No Symptoms
EENT: Reports No Symptoms
Respiratory: Reports No Symptoms
Cardiac: Reports No Symptoms
Abdomen/GI: Reports No Symptoms
: Reports Urgency, Bleeding and Dark Urine
Musculoskeletal: Reports No Symptoms
Skin: Reports No Symptoms
Neurological: Reports No Symptoms
Endocrine: Reports No Symptoms
Hematologic/Lymphatic: Reports No Symptoms
Psych: Reports No Symptoms
Physical Exam
Vital Signs
Vital Signs
Temp Pulse Resp BP Pulse Ox
98.4 F 62 16 106/67 100
11/08/24 02:12 11/08/24 05:05 11/08/24 05:05 11/08/24 05:05 11/08/24 05:05
Physical Exam
General: Well Developed, No Apparent Distress and Comfortable
HEENT: NormoCephalic, Anicteric and Atraumatic
Respiratory: Clear
Cardiac: S1/S2 and Regular Rhythm
Breast: Deferred by me
GI: Soft, Non Tender, Non Distended and Normal Bowel Sounds
Rectal: Deferred by Provider
Genito-urinary: Bloody Urine and No costovertebral tender
Musculoskeletal: No Clubbing, No Cyanosis and No Edema
Skin: Warm
Neuro: AO x 3 and Nonfocal/grossly intact
Hematologic/Lymphatic: No Lymphadenopathy
Psych: Calm
Laboratory Results
-
11/08/24 02:33
11/08/24 02:33
Laboratory Results
Total Bilirubin 0.6 mg/dl (0.2-1.3) 11/08/24 02:33
AST 19 U/L (17-59) 11/08/24 02:33
ALT 10 U/L (0-50) 11/08/24 02:33
Alkaline Phosphatase 128 U/L (38-126) H 11/08/24 02:33
Data Reviewed
-
Lab Data: Labs Reviewed by me
Old Records: Reviewed
Impression/Plan
-
IMPRESSION:
74-year-old with history of type 2 diabetes coming in with uncontrolled diabetes and hematuria. Patient reports ongoing hematuria for a long time now and he has recent urgency and hesitancy which brought him to the emergency department. He has no
fevers or chill. Denies any flank pain. Denies any pelvic pain. He does not have any dysuria. He was recently admitted to the hospital with hyperglycemia and was started on insulin. Patient failed to pickler helper the prescription and has not been
using any insulin. She does have polyuria. He arrived today with a blood glucose greater than 700. No DKA. He did improve with insulin and IV fluid bolus in the ED and his repeat fingerstick glucose was 350. He does appear weak. Urine appears
grossly immaturity and the UA is positive for hematuria as well as leukocyte esterase. Unsure if there is any active infection at this time.
PLAN:
1. DM II -hyperglycemia secondary to uncontrolled diabetes no evidence of DKA
-Admit to [facility]
-Status post 10 units of insulin with IV fluids
-Patient planned insulin regimen which includes 70 3018 units p.m. and 20 units a.m.
-Continue metformin
-Sliding scale insulin
-Monitor for hypoglycemia
-Continue IV fluids at 125 cc of normal saline
2. Hematuria -looking at prior UAs patient has had microscopic hematuria for some time but now has gross hematuria. No obstruction. He is a long-term smoker.
-Given age and smoking history patient is high risk
-Will get kidney bladder ultrasound now
-in the abscence of obstruction, outpatient urology (d/w Dr Talbert) f/u.
- possible UTI, will continue IV ceftriaxone for now until patient stable
3. Weakness -suspect due to dehydration, hemoglobin is fairly stable
- Continue IV fluids
- orthostatic vital sign
- PT consult
- Consider case management
DVT prophylaxis�SCDs
CODE STATUS�full code
[2024-11-08 07:12] VITALS: BP 111/71
[2024-11-08 08:42] VITALS: BP 122/61
[2024-11-08 09:40] LABS: Glucose - Point of Care 394 mg/dl (70-99)
[2024-11-08] MEDS: NOVOLOG MIX 70/30 FLEXPEN 20 UNITS SC (09:42)
[2024-11-08] MEDS: NOVOLOG FLEXPEN-LOW RESISTANCE 5 UNITS SC (09:50)
[2024-11-08 09:53] LABS: Blood Urea Nitrogen 22 mg/dl (9-20); Calcium 9.2 mg/dl (8.4-10.2); Carbon Dioxide 23 mmol/L (22-30); Chloride 102 mmol/L (98-107); Estimated Creatinine Clearance 80 ml/min; Glucose 388 mg/dl (70-99); Potassium 4.4 mmol/L (3.5-5.1); Sodium 133 mmol/L (135-145); eGFR > 60.00
[2024-11-08] MEDS: GLUCOPHAGE 1000 MG PO ×2 (11:21→17:58)
[2024-11-08 12:54] LABS: Glucose - Point of Care 441 mg/dl (70-99)
[2024-11-08] MEDS: NOVOLOG FLEXPEN-LOW RESISTANCE 6 UNITS SC (12:58)
[2024-11-08 13:23] LABS: Glucose 432 mg/dl (70-99)
[2024-11-08 13:54] VITALS: BP 101/45
[2024-11-08 14:10] LABS: Glucose - Point of Care 333 mg/dl (70-99)
--- NOTE | 2024-11-08 14:28 | CM ---
Saw pt in ED 3 he was sleeping and did not want to answer questions.
Spoke with Kim and son Harjinder [phone] . She said pt is confused and has not been taking his medicine nor taking insulin. assists him when he will let her.Pt has glucometer at home but does not use it.
They live in apartment with 16 steps to enter.He has no DME.
He has elevated glucose DM,dementia,hematuria.
Pt will need PT OT evals.
believes he needs SNF rehab.
COTE exlained to copy left with pt a.
did not sign COTE.
[facility] hx No SNF hx
PCP: Dr. Zhong
Pharmacy: [facility]
Plan: Randall need PT OT probable SNF
--- NOTE | 2024-11-08 15:05 | PTCARENOTE ---
Pt transferred from ED. Pt AAOX2, forgetful, bed alarm applied. Pt stating he is leaving soon and not staying, pt educated on why he is here and is admitted. Pt oriented to unit, call grover within reach. Will continue with current plan.
[2024-11-08 17:10] LABS: Glucose - Point of Care 322 mg/dl (70-99)
[2024-11-08] MEDS: RISPERDAL 2.5 MG PO (18:00)
[2024-11-08] MEDS: NOVOLOG MIX 70/30 FLEXPEN 18 UNITS SC (18:03)
[2024-11-08] MEDS: NOVOLOG FLEXPEN-LOW RESISTANCE 4 UNITS SC (18:03)
[2024-11-08] MEDS: HALDOL 1 MG IV (21:26)
[2024-11-08 21:31] LABS: Glucose - Point of Care 305 mg/dl (70-99)
[2024-11-08] MEDS: NOVOLOG FLEXPEN 10 UNITS SC (21:52)
[2024-11-08 23:07] VITALS: BP 99/45
[2024-11-08 23:56] LABS: Glucose - Point of Care 162 mg/dl (70-99)
[2024-11-09 03:00] VITALS: BP 110/47
[2024-11-09] MEDS: NSS 1000 IV (03:28)
[2024-11-09] MEDS: ATIVAN 0.5 MG IV (03:51)
[2024-11-09] MEDS: NSS (PRESERVATIVE FREE) 0.25 ML IV (03:52)
--- NOTE | 2024-11-09 04:40 | PTCARENOTE ---
Pt restless through the night, setting off bed alarm. Haldol given with little effect. Attempting to void but in small amounts. Bladder scanned for 600ml. Attempted to straight cath x 2 but unsuccessful. Pt does not complain of pain at present. TRICK RODEO RIDER
Kirill notified. IV Ativan ordered to help pt relax and Urology consulted. Pt then voided 250ml tea colored urine. Pt sleeping at present with bed alarm intact. Will continue to monitor.
[2024-11-09] MEDS: STERILE WATER FOR INJECTION 10 ML IV (05:38)
[2024-11-09] MEDS: ROCEPHIN 1000 MG IV (05:38)
--- NOTE | 2024-11-09 06:08 | W.PN.UPDATE ---
Update Note
Progress Note Update
nursing reports patient found kneeling on side of bed. No apparent injury. I assessed patient while PCT was setting him up for an ekg and mumbled to me while being uncooperative with testing.
--- NOTE | 2024-11-09 06:30 | PTCARENOTE ---
At approx 0550 pts bed alarm was going off and pt was found at bottom of his bed on his knees. Pt states he did not hit his head or hurt himself. Sheets were found with urine on them. Attempted to help him urinate again and assist back to bed. He is
unable to at this time. Bladder scanned for 696 and attempted to straight cath with a coude without success. Pt is drowsy at this time, falling back to sleep. Urology is consulted and will notify them via text. Bed alarm intact and pt to be 1:1.
[2024-11-09 07:00] VITALS: BP 102/41
[2024-11-09 08:27] LABS: Hematocrit 32.7 % (39.0-52.0); Hemoglobin 11.3 g/dL (13.0-18.0); Mean Corp Hgb Conc. 34.6 g/dL (33.0-37.0); Mean Corpuscular Hgb 30.6 pg (27.0-31.0); Mean Corpuscular Volume 88.6 fL (80.0-94.0); Mean Platelet Volume 11.2 fL (7.4-10.4); Platelet Count 209 10^3/uL (130-400); Red Blood Cell Count 3.69 10^6/uL (4.70-6.10); Red Cell Dist. Width 12.9 % (11.5-14.5); White Blood Cell Count 11.7 10^3/uL (4.8-10.8)
[2024-11-09 08:39] LABS: Glucose - Point of Care 285 mg/dl (70-99)
[2024-11-09] MEDS: GLUCOPHAGE 1000 MG PO ×2 (08:41→17:17)
[2024-11-09] MEDS: NOVOLOG FLEXPEN-LOW RESISTANCE 3 UNITS SC ×2 (08:41→17:16)
[2024-11-09] MEDS: NOVOLOG MIX 70/30 FLEXPEN 20 UNITS SC (08:42)
[2024-11-09 08:52] LABS: Blood Urea Nitrogen 20 mg/dl (9-20); Calcium 8.8 mg/dl (8.4-10.2); Carbon Dioxide 24 mmol/L (22-30); Chloride 107 mmol/L (98-107); Estimated Creatinine Clearance 80 ml/min; Glucose 213 mg/dl (70-99); Magnesium 1.9 mg/dl (1.6-2.3); Potassium 4.6 mmol/L (3.5-5.1); Sodium 137 mmol/L (135-145); eGFR > 60.00
--- NOTE | 2024-11-09 09:57 | CONS.URO ---
Consultation
-
Performing Provider: Peffer
Reason for Consultation: Hematuria
Medical History
History of Present Illness
74M with history of gross hematuria and known bladder mass
He was seen in early [address] Talbert for hematuria and a small mass seen on CT
Was set up for resection but surgery cancelled due to severe hyperglycemia. Patient did not follow up to reschedule and has not been seen since
He presented with gross hematuria and hyperglycemic crisis
Straight cath overnight was performed for 550cc
Renal bladder US showed two bladder tumors, increase in size from prior in 05/2023 up to 3cm
This AM nursing was unable to straight cath
This morning patient is not willing to talk to me or be examined
Reviewed prior notes and personally reviewed images, outpatient records
Past Medical History
Past Medical History: Other (DM-II TBI Hypertension)
Social History
Unable to obtain full social history at this time due to: Other (patient unwilling to talk)
Tobacco: Smoker
Family History
Family History: Unable to Obtain
Allergies/Home Medications
Allergies
Allergy/AdvReac Type Severity Reaction Status Date / Time
aspirin Allergy Rash Verified 11/08/24 02:25
Penicillins Allergy Rash Verified 11/08/24 02:25
Home Medications
�Medication �Instructions �Recorded �Confirmed �Type
metformin 1,000 mg tablet 1,000 mg PO BID@0800,1700 #60 tabs 08/27/24 11/08/24 Rx
Physical Exam
Vital Signs
Vital Signs
Temp Pulse Resp BP Pulse Ox
97.0 F 76 20 102/41 98
11/09/24 07:00 11/09/24 07:00 11/09/24 07:00 11/09/24 07:00 11/09/24 08:20
Lab / Testing Results
Laboratory Results
11/09/24 06:40
04/19/25 06:40
Physical Exam
Not willing to be examined
General: Well Developed
Psych: Agitated
Assessment / Plan
-
74M with gross hematuria, urinary retention, known bladder mass since 05/2023 which has progressed in size
Admitted with severe hyperglycemia
Urology consulted for urinary retention and gross hematuria
- Patient combative and unwilling to provide history, be examined, or have catheter placed this AM. Unfortunately not much I can add at this time with patient refusing to participate in care. Discussed with Dr. Guillaume
- Bladder tumors on imaging and smoking history consistent with likely bladder cancer
- Urinary retention of at least 600cc though not c/o difficulty voiding - suspect some chronic retention
[2024-11-09 11:56] LABS: Glucose - Point of Care 221 mg/dl (70-99)
--- NOTE | 2024-11-09 12:07 | W.PN.HOSP.TC ---
Today's Communication/Plan
-
CW IV abx
Follow UCx
Henderson insertion
Follow HH
Prn Resperidal
Assessment / Plan
Assessment / Plan
IMPRESSION:
74-year-old with history of type 2 diabetes coming in with uncontrolled diabetes and hematuria. Patient reports ongoing hematuria for a long time now and he has recent urgency and hesitancy which brought him to the emergency department. He has no
fevers or chill. Denies any flank pain. Denies any pelvic pain. He does not have any dysuria. He was recently admitted to the hospital with hyperglycemia and was started on insulin. Patient failed to pickling solution maker the prescription and has not been
using any insulin. She does have polyuria. He arrived today with a blood glucose greater than 700. No DKA. He did improve with insulin and IV fluid bolus in the ED and his repeat fingerstick glucose was 350. He does appear weak. Urine appears
grossly immaturity and the UA is positive for hematuria as well as leukocyte esterase. Unsure if there is any active infection at this time.
PLAN:
DM II -hyperglycemia secondary to uncontrolled diabetes no evidence of DKA
-Patient planned insulin regimen which includes 70 3018 units p.m. and 20 units a.m.
-Continue metformin
-Sliding scale insulin
- Improved blood sugars ; tolerating diet without N/V
-Monitor for hypoglycemia
- DC further IV fluids
Hematuria -looking at prior UAs patient has had microscopic hematuria for some time but now has gross hematuria. No obstruction. He is a long-term smoker.
-Given age and smoking history patient is high risk
-Prior CT A/P in 2022 shows bladder tumor concern and he hasnt had any cysto . DW Uro today -lost to follow up
- US today suggest bladder tumor with clots
- Cant rule out possible UTI, will continue IV ceftriaxone for now until patient stable
- Would need cystoscopy if agreable
Acute urinary retention-cannot rule out secondary to clot retention-patient has agreed for attempts of Henderson catheter insertion. Urology to place a Henderson today.
Agitation - pt had prior hx of making underlying dementia as a possiblity . Also cant rule out encephalopathy from hyperglycemia and UTI. Prn Risperidal .QTc is ok .
Weakness -suspect due to dehydration, hemoglobin is fairly stable
- cw PT tx
- Consider case management
DVT prophylaxis�SCDs
CODE STATUS�full code
DW RN
DW Urology
Total time spent on today's encounter was 52 minutes which included time spent in counseling the patient/family regarding diagnosis and treatment plan as listed above, goals of care, and symptom management. Case was discussed with nursing staff,
specialists, and care coordinators/case management. All labs and imaging personally reviewed by me. Remainder the time spent in detailed review of previous records, lab data, imaging, and other medical provider documentation.
Anticipated Discharge: > 48 hours
Subjective/Interval History
-
Date of Service: November 09, 2024
Patient was not cooperative this morning. He had removed the IV line.
He was declining care.
When I visited the patient he was lying in his bed. No agitation. Was able to have a decent conversation.
He says' you do not know what you doing here. You guys are not efficient.' I had a better care at another hospital.
Last night patient was in urinary retention other attempts to get the catheter but it vein-suspect this may be the reason he is feeling the way he is feeling.
He has not urinated yet. After long discussion he is now agreeable to get a Henderson catheter placed by urology.
Denies any fever or chills.
He is alert and oriented to self.
Objective Data
-
Labs:
Laboratory Results
11/09/24
06:40
WBC 11.7 H
Hgb 11.3 L
Hct 32.7 L
Plt Count 209
Sodium 137
Potassium 4.6
Chloride 107
Carbon Dioxide 24
BUN 20
Creatinine 0.7
Glucose 213 H
Calcium 8.8
Vital Signs:
Vital Signs
Temp Pulse Resp BP Pulse Ox
97.0 F 76 20 102/41 98
11/09/24 07:00 11/09/24 07:00 11/09/24 07:00 11/09/24 07:00 11/09/24 08:20
I&O
11/08/24 11/09/24 11/10/24
06:59 06:59 06:59
Intake Total 1840 / 1840
Output Total 800 / 800
Balance 1040 / 1040
Review of Systems
-
Unable to obtain full review of systems at this time due to: Other (due to non cooperation)
Physical Exam
-
General: No Apparent Distress
Respiratory: Non Labored Respirations; Negative Accessory Resp Muscle Use
GI: Soft, Normal Bowel Sounds and Tender (over suprapubic area )
Neuro: Awake, Alert, Oriented (self and person) and No Motor Deficits
Psych: Calm (during my visit) and Confused; Negative Agitated
Data Reviewed
-
Labs: Labs Reviewed by me
--- NOTE | 2024-11-09 12:08 | W.PN.UPDATE ---
Update Note
Progress Note Update
Patient mental status significantly improved this morning
He is able to discuss his bleeding problem and reiterate our conversations to confirm understanding
We reviewed his bladder tumor on imaging and cause of hematuria
Given his poor follow up I would recommend addressing his bladder tumor while inpatient
Discussed TURBT procedure, post op recovery, possible complications
Reviewed he will need to have a catheter in place for at least a few days after surgery for bladder healing
Patient understood and agreed to proceed
He has been able to void this morning without difficulty - urine brown/tea color per PCT
Given minimal hematuria will hold off on white catheter placement at this time
Schedule for OR tomorrow if cleared to proceed by medicine
[2024-11-09] MEDS: NOVOLOG FLEXPEN-LOW RESISTANCE 2 UNITS SC (12:20)
[2024-11-09] MEDS: NSS IV (12:23)
[2024-11-09 15:00] VITALS: BP 110/47
[2024-11-09 17:04] LABS: Glucose - Point of Care 291 mg/dl (70-99)
[2024-11-09] MEDS: NOVOLOG MIX 70/30 FLEXPEN 18 UNITS SC (17:18)
[2024-11-09] MEDS: RISPERDAL 0.25 MG PO (19:41)
[2024-11-09 22:29] VITALS: BP 99/53
[2024-11-09 23:55] LABS: Glucose - Point of Care 477 mg/dl (70-99)
[2024-11-10] VITALS (12 sets, daily range): BP systolic 100–142; BP diastolic 54–80
[2024-11-10] MEDS: NSS (PRESERVATIVE FREE) 0.25 ML IV (00:25)
[2024-11-10] MEDS: ATIVAN 0.5 MG IV (00:26)
[2024-11-10 00:51] LABS: Glucose 505 mg/dl (70-99)
[2024-11-10] MEDS: NOVOLOG FLEXPEN 12 UNITS SC (01:06)
[2024-11-10] MEDS: NOVOLOG FLEXPEN-LOW RESISTANCE SC ×2 (01:08→11:23)
--- NOTE | 2024-11-10 01:48 | TRANSFER ---
Report given to Stacia CARRASCO on . Pt transferred to Rm 2120 along with belongings and 1:1.
--- NOTE | 2024-11-10 02:15 | PTCARENOTE ---
Pt transferred from [facility] to this unit r/t surgery in AM and need for 1:1 r/t to hx of dementia. Pt transferred via bed asleep with 1:1 @ bedside. Pt NPO since 0000, blood glucose scheduled for 0300. Pt asleep rise and fall of the chest observed and
pt making small movement in bed.
[2024-11-10 03:04] LABS: Glucose - Point of Care 332 mg/dl (70-99)
--- NOTE | 2024-11-10 03:13 | PTCARENOTE ---
Pt awake VSS, oriented to new room, 1:1 at bedside. Blood glucose 332
[2024-11-10 05:46] LABS: Glucose - Point of Care 239 mg/dl (70-99)
[2024-11-10] MEDS: NOVOLOG FLEXPEN-LOW RESISTANCE 2 UNITS SC (05:57)
[2024-11-10] MEDS: STERILE WATER FOR INJECTION 10 ML IV (05:59)
[2024-11-10] MEDS: ROCEPHIN 1000 MG IV (05:59)
[2024-11-10 07:31] LABS: Glucose - Point of Care 392 mg/dl (70-99)
[2024-11-10] MEDS: NOVOLOG MIX 70/30 FLEXPEN 20 UNITS SC (07:43)
[2024-11-10] MEDS: GLUCOPHAGE 1000 MG PO ×2 (07:44→21:41)
[2024-11-10 07:47] LABS: Hematocrit 31.8 % (39.0-52.0); Hemoglobin 10.8 g/dL (13.0-18.0); Mean Corpuscular Volume 88.3 fL (80.0-94.0); Mean Platelet Volume 11.2 fL (7.4-10.4); Platelet Count 211 10^3/uL (130-400); Red Cell Dist. Width 12.8 % (11.5-14.5); White Blood Cell Count 8.9 10^3/uL (4.8-10.8)
[2024-11-10 09:15] LABS: Glucose - Point of Care 122 mg/dl (70-99)
--- NOTE | 2024-11-10 09:18 | W.IMMPOSTOP ---
Surgical Immed Post Op Note
-
Primary Surgeon: Devontefer
Assisting Surgeon: none
Pre-op Diagnosis: Bladder tumor
Post-op Diagnosis: same
Procedure Performed: TURBT, clot evacuation
Anesthesia Type: general
Specimen / Cultures: L wall bladder tumor
Estimated Blood Loss: 1cc
Complications: none
Operative Findings: 1.5cm L wall bladder tumor resected
--- NOTE | 2024-11-10 09:28 | W.PN.URO.CBU ---
Today's Communication / Plan
-
s/p successful TURBT
Maintain white today
Assessment / Plan
-
74M with gross hematuria, urinary retention, known bladder mass since 05/2023 which has progressed in size
Admitted with severe hyperglycemia
Urology consulted for urinary retention and gross hematuria
Gross hematuria
- s/p resection of bladder tumor 11/10 - single 1.5cm L wall tumor completely resected, consistent with urothelial carcinoma and superficial appearing
Urinary retention
- Urinary retention of at least 600cc on PVR though not c/o difficulty voiding - suspect chronic retention
- Bladder was largely atonic on cystoscopy 11/10 and consistent with chronic neurogenic bladder from uncontrolled diabetes
- Maintain white catheter overnight
- Trial of void tomorrow if urine clear - will expect a significant elevated PVR but given some dementia/sundowning issues he likely will not tolerate intermediate card tender white catheter well
Diagnosis
-
Date of Service: November 10, 2024
-
Patient Diagnosis:
Gross hematuria
Urinary retention
Bladder tumor
Post Op s/p TURBT, clot evacuation 11/10/24
Subjective
-
n/a
Objective
-
Vital Signs
Temp Pulse Resp BP Pulse Ox
98.1 F 80 12 124/74 100
11/10/24 07:44 11/10/24 09:15 11/10/24 09:15 11/10/24 09:10 11/10/24 09:15
Intake and Output
11/09/24 11/10/24 11/11/24
06:59 06:59 06:59
Intake Total 1840 / 1840 1080 / 1080
Output Total 800 / 800
Balance 1040 / 1040 1080 / 1080
Intake:
Oral fluids 840 / 840 1080 / 1080
IV fluids (Total) 1000 / 1000
Output:
Urine, Voided 250 / 250
Straight cath output 550 / 550
Other:
Number of approximated SMALL 3
amounts of urine
Number of approximated MODERATE 1 2
amounts of urine
Number of approximated LARGE 1
amounts of urine
How many times incontinent 1
SATURATED amount urine
Laboratory Results
11/10/24 06:15
11/10/24 00:07
Physical Exam
-
General - well developed, well nourished, no acute distress
Chest - clear
Abdomen - soft, non-tender
[2024-11-10 11:20] LABS: Glucose - Point of Care 106 mg/dl (70-99)
--- NOTE | 2024-11-10 13:56 | W.PN.HOSP.TC ---
Today's Communication/Plan
-
Continue ceftriaxone
Diabetic nurse educator consult
Voiding trial in a.m. per urology
Assessment / Plan
Assessment / Plan
IMPRESSION:
74-year-old with history of type 2 diabetes coming in with uncontrolled diabetes and hematuria. Patient reports ongoing hematuria for a long time now and he has recent urgency and hesitancy which brought him to the emergency department. He has no
fevers or chill. Denies any flank pain. Denies any pelvic pain. He does not have any dysuria. He was recently admitted to the hospital with hyperglycemia and was started on insulin. Patient failed to pickup driver the prescription and has not been
using any insulin. She does have polyuria. He arrived today with a blood glucose greater than 700. No DKA. He did improve with insulin and IV fluid bolus in the ED and his repeat fingerstick glucose was 350. He does appear weak. Urine appears
grossly immaturity and the UA is positive for hematuria as well as leukocyte esterase. Unsure if there is any active infection at this time.
PLAN:
DM II -hyperglycemia secondary to uncontrolled diabetes no evidence of DKA
-Patient planned insulin regimen which includes 70 3018 units p.m. and 20 units a.m.
- Based on my discussion today I doubt he is doing insulin at home. I did consult diabetic nurse practitioner and reeducate him about insulin use and monitoring.
-Continue metformin
-Sliding scale insulin
- Improved blood sugars ; tolerating diet without N/V
-Monitor for hypoglycemia
- DC further IV fluids
Hematuria -looking at prior UAs patient has had microscopic hematuria for some time but now has gross hematuria. No obstruction. He is a long-term smoker.
-Given age and smoking history patient is high risk
-Prior CT A/P in 2022 shows bladder tumor concern and he hasnt had any cysto . DW Uro today -lost to follow up
- US today suggest bladder tumor with clots
- Cant rule out possible UTI, will continue IV ceftriaxone for now until patient stable
- Status post cystoscopy and TURBT 11/10. Continue with Henderson catheter and voiding trials per urology
Acute urinary retention-Henderson in place now.
Agitation - pt had prior hx of making underlying dementia as a possiblity . Also cant rule out encephalopathy from hyperglycemia and UTI. Prn Risperidal .QTc is ok . Seems okay today.
Weakness -suspect due to dehydration, hemoglobin is fairly stable
- cw PT tx
DVT prophylaxis�SCDs
CODE STATUS�full code
DW RN
DW Urology today postprocedure-voiding trial tomorrow
Total time spent on today's encounter was 52 minutes which included time spent in counseling the patient/family regarding diagnosis and treatment plan as listed above, goals of care, and symptom management. Case was discussed with nursing staff,
specialists, and care coordinators/case management. All labs and imaging personally reviewed by me. Remainder the time spent in detailed review of previous records, lab data, imaging, and other medical provider documentation.
Anticipated Discharge: 24 - 48 hours
Subjective/Interval History
-
Date of Service: November 10, 2024
S/p cystoscopy and TURBT.
Currently in the room with a Henderson catheter.
Alert and oriented to place but not the date or the month of the year.
No agitation.
He understands his other issue is high blood sugars. He says he only takes metformin. He would like to use insulin and makes me a think he is not using insulin at home. He was admitted here in August and his hemoglobin A1c was 19.4 and he was
put on insulin. Advised that he would benefit insulin and advised him to reconsider insulin.. Consult diabetic nurse educator to reeducate him about insulin administration and Accu-Cheks monitoring
Objective Data
-
Labs:
Laboratory Results
11/10/24
06:15
WBC 8.9
Hgb 10.8 L
Hct 31.8 L
Plt Count 211
Vital Signs:
Vital Signs
Temp Pulse Resp BP Pulse Ox
97.4 F 76 18 116/55 98
11/10/24 11:53 11/10/24 11:53 11/10/24 11:53 11/10/24 11:53 11/10/24 11:53
I&O
11/09/24 11/10/24 11/11/24
06:59 06:59 06:59
Intake Total 1840 / 1840 1080 / 1080 100 / 100
Output Total 800 / 800 400 / 400
Balance 1040 / 1040 1080 / 1080 -300 / -300
Review of Systems
-
Respiratory: Denies Trouble Breathing
Cardiac: Denies Chest Pain
Abdomen/GI: Denies Abdominal Pain, Nausea or Vomiting
Neuro: Denies Dizzy
Physical Exam
-
General: Respiratory Distress
HEENT: Moist Mucous Membranes
Respiratory: Non Labored Respirations; Negative Accessory Resp Muscle Use
Cardiac: Regular Rhythm and S1/S2
GI: Soft and Nontender
Genito-urinary: Bloody Urine and Henderson
Neuro: AO x 3
Psych: Calm
Data Reviewed
-
Labs: Labs Reviewed by me
[2024-11-10 16:41] LABS: Glucose - Point of Care 311 mg/dl (70-99)
[2024-11-10] MEDS: NOVOLOG FLEXPEN-LOW RESISTANCE 4 UNITS SC (16:47)
[2024-11-10] MEDS: NOVOLOG MIX 70/30 FLEXPEN 18 UNITS SC (16:48)
[2024-11-10 21:16] LABS: Glucose - Point of Care 362 mg/dl (70-99)
[2024-11-10] MEDS: RISPERDAL 0.25 MG PO (21:42)
[2024-11-11] MEDS: VALIUM INJECTION 2 MG IV (01:24)
[2024-11-11] MEDS: FLUSH (NSS) 2 FLUSH IV (01:24)
[2024-11-11 03:04] VITALS: BP 105/44
[2024-11-11] MEDS: STERILE WATER FOR INJECTION 10 ML IV (05:41)
[2024-11-11] MEDS: ROCEPHIN 1000 MG IV (05:41)
[2024-11-11 07:26] LABS: Hematocrit 31.4 % (39.0-52.0); Hemoglobin 10.6 g/dL (13.0-18.0); Mean Corp Hgb Conc. 33.8 g/dL (33.0-37.0); Mean Corpuscular Hgb 30.3 pg (27.0-31.0); Mean Corpuscular Volume 89.7 fL (80.0-94.0); Mean Platelet Volume 10.9 fL (7.4-10.4); Platelet Count 211 10^3/uL (130-400); White Blood Cell Count 10.9 10^3/uL (4.8-10.8)
--- NOTE | 2024-11-11 07:32 | W.PN.URO.CBU ---
Today's Communication / Plan
-
Outpatient follow up for pathology review and further counseling
Likely stable for discharge today after trial of void
Assessment / Plan
-
74M with gross hematuria, urinary retention, known bladder mass since 05/2023 which has progressed in size
Admitted with severe hyperglycemia
Urology consulted for urinary retention and gross hematuria
Gross hematuria
- s/p resection of bladder tumor 11/10 - single 1.5cm L wall tumor completely resected, consistent with urothelial carcinoma and superficial appearing
Urinary retention
- Urinary retention of at least 600cc on PVR though not c/o difficulty voiding - suspect chronic retention
- Bladder was largely atonic on cystoscopy 11/10 and consistent with chronic neurogenic bladder from uncontrolled diabetes
- White removed for trial of void today - will expect a significant elevated PVR but given some dementia/sundowning issues he likely will not tolerate jail white catheter well
Outpatient follow up for pathology review and further counseling
Likely stable for discharge today after trial of void
Diagnosis
-
Date of Service: November 11, 2024
-
Patient Diagnosis:
Post Op Day:
Patient Diagnosis:
Gross hematuria
Urinary retention
Bladder tumor
Post Op s/p TURBT, clot evacuation 11/10/24
Subjective
-
feelign well today
no hematuria overnight
Objective
-
Vital Signs
Temp Pulse Resp BP Pulse Ox
98.4 F 83 18 105/44 98
11/11/24 03:04 11/11/24 03:04 11/11/24 03:04 11/11/24 03:04 11/11/24 03:04
Intake and Output
11/10/24 11/11/24 11/12/24
06:59 06:59 06:59
Intake Total 1080 / 1080 1020 / 1020
Output Total 1900 / 1900
Balance 1080 / 1079 -880 / -880
Intake:
Oral fluids 1079 / 1079 92 / 92
IV fluids (Total) 100 / 100
Normosol 100 / 100
Output:
Urine, White 1899
Other:
Number of approximated SMALL 3
amounts of urine
Number of approximated MODERATE 2
amounts of urine
Laboratory Results
11/11/24 06:24
Physical Exam
-
General - well developed, well nourished, no acute distress
Chest - clear
Abdomen - soft, non-tender
[2024-11-11 07:40] VITALS: BP 129/63
--- NOTE | 2024-11-11 07:42 | W.PN.HOSP.TC ---
Addendum entered and electronically signed by Shad Aguirre MD 11/11/24 14:30:
Bladder mass complicated by gross hematuria urea concerning for urothelial carcinoma
S/p cystoscopy with TURBT on 11/10
Outpatient follow-up with urology for biopsy for review
Henderson removed passing urine with a TOV of 100 cc today
Cleared by urology for discharge
Dementia felt likely a behavioral component
Continue as needed Risperdal
Insulin dependent diabetes
Continue long and short acting insulin
Currently on metformin, renal function intact, with no evidence of diarrhea or acidemia at this time
Accu-Chek sliding scale goal blood glucose 140-180
Original Note:
Today's Communication/Plan
-
TOV successful, PT consult pending, possible d/c to SNF vs. Home
Assessment / Plan
Assessment / Plan
74 yo M with history of type 2 diabetes presenting for uncontrolled diabetes and acute gross hematuria
#IDDM II, uncontrolled
- No evidence of DKA on admission, MS altered but at baseline
- Has been on his planned insulin dose of 70/30 20U AM and 18U PM
- Consult diabetic nurse practitioner. Will call to discuss
- C/w metformin
- On LDISS
- Monitor for hypoglycemia
#Bladder Mass c/w urothelial carcinoma, s/p cystoscopy and TURBT 11/10/24
#Gross/Microscopic Hematuria
- h/o microscopic hematuria, now grossly hematuric. No obstruction. Long-term current smoker.
- Prior CT A/P in 2022 shows bladder tumor concern, but he has not had any cystoscopy and was lost to follow up
- US today suggest bladder tumor with clots
- Can't rule out possible UTI, c/w Ceftriaxone --
- Successful TOV today 100cc shyam colored urine; cleared by Urology for d/c
#Acute urinary retention, secondary to chronic Neurogenic Bladder 2/2 Uncontrolled DM
- resolved, TOV successful, cleared for d/c
#Agitation, likely 2/2 dementia
- pt had prior hx of making underlying dementia as a possibility. Prn Risperidal.
#Weakness, likely secondary to dehydration
- PT consult, will follow
DVT PPx: SCDs
Code Status: Full Code
Anticipated Discharge: Today
Subjective/Interval History
-
Date of Service: November 11, 2024
Feeling well, no acute complaints.
Objective Data
-
Labs:
Laboratory Results
11/11/24
06:24
WBC 10.9 H
Hgb 10.6 L
Hct 31.4 L
Plt Count 211
Sodium Pending
Potassium Pending
Chloride Pending
Carbon Dioxide Pending
BUN Pending
Creatinine Pending
Glucose Pending
Calcium Pending
Vital Signs:
Vital Signs
Temp Pulse Resp BP Pulse Ox
98.4 F 83 18 105/44 98
11/11/24 03:04 11/11/24 03:04 11/11/24 03:04 11/11/24 03:04 11/11/24 03:04
I&O
11/10/24 11/11/24 11/12/24
06:59 06:59 06:59
Intake Total 1080 / 1080 1020 / 1020
Output Total 1900 / 1900
Balance 1080 / 1080 -880 / -880
Review of Systems
-
Unable to obtain full review of systems at this time due to: Dementia
History Source: Patient
Constitutional: Reports No Symptoms
EENT: Reports No Symptoms Reported
Respiratory: Reports No Symptoms
Cardiac: Reports No Symptoms
Abdomen/GI: Reports No Symptoms
Genitourinary: Reports No Symptoms
Musculoskeletal: Reports No Symptoms
Physical Exam
-
General: Well Developed, Well Nourished, No Apparent Distress and Comfortable
HEENT: Normocephalic, Atraumatic, Moist Mucous Membranes, Nose Appears Normal and Ears Appear Normal
Respiratory: Clear to Auscultation; Negative Wheezes, Rales or Rhonchi
Cardiac: Regular Rhythm and S1/S2; Negative Murmur or Rub
GI: Soft, Nontender, Nondistended and Normal Bowel Sounds
Genito-urinary: Bloody Urine (Shyam colored)
Musculoskeletal: No Clubbing, No Cyanosis and No Edema
Skin: Warm and Dry
Neuro: Awake, Alert and Oriented (Oriented to Person, not place or time. )
Psych: Calm
[2024-11-11 07:54] LABS: Blood Urea Nitrogen 20 mg/dl (9-20); Calcium 8.9 mg/dl (8.4-10.2); Carbon Dioxide 26 mmol/L (22-30); Chloride 103 mmol/L (98-107); Estimated Creatinine Clearance 70 ml/min; Glucose 271 mg/dl (70-99); Potassium 4.6 mmol/L (3.5-5.1); Sodium 135 mmol/L (135-145); eGFR > 60.00
[2024-11-11] MEDS: GLUCOPHAGE 1000 MG PO ×2 (08:10→16:36)
[2024-11-11] MEDS: NOVOLOG MIX 70/30 FLEXPEN 20 UNITS SC (08:12)
[2024-11-11 08:17] LABS: Glucose - Point of Care 276 mg/dl (70-99)
[2024-11-11] MEDS: NOVOLOG FLEXPEN-LOW RESISTANCE 3 UNITS SC (08:18)
--- NOTE | 2024-11-11 08:23 | PN.DE.MGMTRT ---
Insulin Management
- -
11/11/2024: Diabetes Management Consult
74 year old male with PMH: HTN, traumatic brain injury, bladder mass 11/29/23, Dementia, T2DM, presented to the ED for concern for hematuria. Reports that he has had pneumaturia for some time now but is worse over the last few days with increasing
urinary frequency as well as urgency. Patient was recently admitted to the hospital with uncontrolled diabetes and started on insulin. He reports that he is not aware of having been started on insulin and did not last picker the insulin prescription.
He has not been using insulin since his discharge from the hospital. Glucose on admission was 782, last A1C was 19.4% on 08/20/2024, Cr 0.8, eGFR >60
Patient awake, alert, a bit confused and forgetful but able to participate in discussion regarding diabetes care. No family at bedside.
Pt was started on 70/30- 20 units in AM and 18 units in PM regimen and low corrective insulin with meals.
Glucose has remained elevated, requiring 3-4 units of additional corrective insulin. Pre-dinner glucose was 311, pt received 70/30 18 units, HS glucose was 352, FBG 271 V, 276 POC. Will increase 70/30 dose to 22 units BID. Cont Low corrective with
meals
Will ask Diabetes RN Educator to see pt and provide insulin and monitor instructions. He as provided a monitor during last admission but states he does not have one. Pt states that and son both work at [employer] overnight and that they are usually
home during the day, he is certain that they will be able to assist him with administering his insulin before breakfast and dinner. Patient is NOT safe to self inject insulin given declining cognitive function.
Diabetes History
- -
Type of Diabetes: 2 requiring insulin
Pre-Admission Diabetes Regimen
11/11/24
06:24
Creatinine 0.8
Insulin Pump Settings
IP Diabetes Regimen
11/10/24 11/10/24 11/10/24
09:12 11:18 16:39
Glucose
POC Glucose 122 H 106 H 311 H
11/10/24 11/11/24 11/11/24
21:13 06:24 08:15
Glucose 271 H
POC Glucose 362 H 276 H
Meal type: Dinner
Meal type: Lunch
Amount consumed: 100%
Amount consumed: 100%
Patient Education
--- NOTE | 2024-11-11 09:16 | CM ---
Addendum entered by Yazmin Chandler RN 11/11/24 13:17:
CM spoke with the patient's spouse Kim via telephone. CM explained the patient was ready for discharge today. Patient's spouse replied 'I'll pick him up in the morning. I'm going to work'. Attending and RN updated. Patient has dementia and
would not be safe to discharge to home via a Lyft.
Original Note:
Reviewed the chart notes and spoke with the patient at the bedside. IMM reviewed. The patient's spouse will be providing transportation home today. CM continues to be available to patient/family and is monitoring medical plan for needs at
discharge.
Plan: Discharge to home today. No needs identified at this time.
[2024-11-11 09:38] VITALS: BP 129/59
[2024-11-11 11:55] LABS: Glucose - Point of Care 302 mg/dl (70-99)
[2024-11-11] MEDS: NOVOLOG FLEXPEN-LOW RESISTANCE 4 UNITS SC (11:59)
[2024-11-11] MEDS: HALDOL 5 MG IM (12:44)
--- NOTE | 2024-11-11 15:22 | PTCARENOTE ---
Patient became very agitated saying he was going to go home.The doctors said early this morning that the patient could be discharged however his was at work and said she would not be able to pick him up until tomorrow.The patient continued to
get more agitated and combative.Security was called and spent a hour and more with him.I administered Haldol 5mg IM which calmed him for only a few minutes.He quickly became agitated and combative again and we had to call security again.The patient
called 911 and the police came here and talked him.the resident eventually called the son who said that he would pick him up within the hour.The resident will put the discharge in.The patient was cooperative for about 20 minutes after he talked with
his son but then began to make multiple attempts to leave again.He was repeatedly redirected and reminded that his son was coming for him.
--- NOTE | 2024-11-11 15:42 | W.DCSUMMARY ---
Discharge Summary
Discharge Data
Date of Admission: 11/11/24
Date of Discharge: 11/11/24
Total time spent discharging patient (in min): >30m
-
Pending Results: No
Hospital Course
Discharging Physician : Dr. Zach Lanza, Dr. Shad Aguirre
Disposition : Home
Primary care physician : Unknown
Principal Discharge diagnosis : Acute Hyperglycemia, Acute Gross Hematuria, TURBT, Bladder Mass
Chronic Discharge diagnosis : IDDM II (uncontrolled), Chronic Neurogenic Bladder, Possible Underlying Dementia
Hospital Course :
74 yo M with history of type 2 diabetes presenting for acute hyperglycemia and acute gross hematuria
#IDDM II, uncontrolled
#Acute Hyperglycemia
- Had no evidence of DKA on admission, baseline mental status
- From prior discharge was put on insulin dose of 70/30 20U AM and 18U PM, however had not been taking regularly. Family endorses medication noncompliance.
- was put on LDISS during admission, and per insulin requirements his 70/30 was adjusted to 22U AM and PM
- Diabetic nurse practitioner consulted to discuss insulin regimen with the patient.
- He was continued on metformin as well
- new medication refills were sent to the patient's pharmacy
#Bladder Mass consistent with urothelial carcinoma, s/p clot evacuation and TURBT 11/10/24
#Gross/Microscopic Hematuria
- Patient has a history microscopic hematuria, now progressed to gross hematuria. There was no evidence for obstruction.
- Prior CT A/P in 2022 showed a mass concerning for bladder tumor, but he has not had any cystoscopy yet as outpatient and was lost to follow up with Urology
- Renal US suggests bladder tumor with possible clots
-UA was done which could not rule out UTI (+ for blood/LE) and so he was given Ceftriaxone x3 doses
- Successful TOV today after Henderson placement, he voided 100cc shyam colored urine; cleared by Urology for d/c
#Acute urinary retention, likely from to chronic Neurogenic Bladder from Uncontrolled DM
- Initially retaining after TURBT procedure, started on Henderson. TOV was successful and he was cleared for d/c
#Agitation, likely 2/2 dementia
- pt had prior hx of making underlying dementia as a possibility.
- Multiple instances of agitation, confusion, and attempts to leave against medical advice. patient was initially redirectable by calling his so he could speak to her, however he ultimately remained agitated.
- He required one dose of 5mg IM haldol which made little difference in mood. He was medically cleared for discharge, however he initially had no transportation and due to altered mental status/dementia was not safe to give transport (Lyft/Uber).
- Ultimately, the family was contacted and his Son Harjinder agreed to pick him up and take him home the day of discharge.
#Weakness, likely secondary to dehydration
-Resolved throughout stay. patient was seen by PT and cleared for home health, however no decision was ultimately made by family prior to discharge.
Important imaging findings :
US Renal With Bladder:
1. Two urinary bladder masses as above. 1.5 cm mass along the left wall of the bladder shows internal color Doppler vascularity and is suspicious for malignancy. Larger posterior mass does not show color Doppler flow. While this may also represent
neoplasm, blood clot is also possible. These findings could be further evaluated with cystoscopy.
2. Diffuse low level echoes within the urinary bladder probably related to hemorrhage.
3. Bladder prevoid volume of 786 cc and post void residual of 677 cc.
4. Bilateral renal cysts without suspicious features. No hydronephrosis.
Procedure findings :
TURBT, clot evacuation:
Anesthesia Type: general
Specimen / Cultures: L wall bladder tumor
Estimated Blood Loss: 1cc
Complications: none
Operative Findings: 1.5cm L wall bladder tumor resected
Discharge Plan
-
Patient Disposition: Home (Routine Discharge)
Discharge Diagnosis/Procedures: Acute Hyperglycemia
Acute Gross Hematuria
TURBT
Bladder Mass
Condition: Good
Diet: Diabetic, Carb Controlled
Activity: No restrictions
Driving Restrictions: As prior to admission
Referrals:
Han Sutherland MD [Active] - in one to two weeks
UNKNOWN - PT DOES,NOT KNOW [Family Provider] -
Prescriptions:
New
insulin asp prt-insulin aspart 100 unit/mL (70-30) Insulin Pen
22 unit SC DAILY 30 Days Qty: 15 4RF
Rx Instructions:
Take 22U Insulin @ 7:00AM
insulin asp prt-insulin aspart 100 unit/mL (70-30) Insulin Pen
22 unit SC DAILY@1700 30 Days Qty: 15 0RF
Rx Instructions:
Take 22U at 5:00PM
Continued
metformin 1,000 mg Tablet
1,000 mg PO BID@0800,1700 Qty: 60 0RF
Discharge Orders:
Discharge Patient (As Directed); Ordered 11/11/24
Ordered By: Zach Lanza
Discharge Date and Time
Print Language: URDU
[2024-11-11 15:45] VITALS: BP 126/62
--- NOTE | 2024-11-11 15:45 | W.PN.UPDATE ---
Update Note
Progress Note Update
Patient suddenly became combative and aggressive this AM, insisting that he had to leave immediately because his was 'in the hospital with a heart condition'. He continually threatened to leave, stating that 'we cannot keep him here.' I had
spoken to the only a few minutes ago and she told me that the patient is 'difficult' at home and that she had to go to work, but would be able to pick him up tomorrow, after I informed her that he was medically stable for discharge. The patient
continued to insist on leaving and so I went up to see him, at which point he was attempting to push past security. 5mg of IM Haldol were ordered at that time. Pt remained combative, at times even attempting to video tape myself and the nursing
staff/security officers. I called his and put her on speaker phone and she assured him that she was NOT on her way to the hospital with a heart condition and that she would be picking him up tomorrow. At the time he seemed agreeable and began
to calm down. However, after some time, a code purple was called as the patient was again trying to push past security and leave. He does not drive and was not oriented and so it would not be safe for him to leave on his own, nor to take a Lyft/Uber
home. We again called his family, this time speaking with his son, Harjinder, who agreed to tow picker the patient an hour from our call. Attempts were made to call the patient's to update her after speaking with her son, but she did not tow picker.
Will call again in the evening. Discussions between Case management and the patient's family are ongoing as he is noncompliant with medication at home and difficult to control.
--- NOTE | 2024-11-11 16:48 | PTCARENOTE ---
11/11/2024 DIABETES EDUCATION
I met with Mert today, and per report has been combative with nursing staff today. He was dressed and standing by his door with PCT keeping him from leaving the room. I attempted to provide education on insulin administration and glucometer use and
he refused. He was waiting for his son to pick him up at 4pm, and is still not at hospital at 4:45pm.
== END 2024-11-11 17:00 | disposition home or self-care (01) | DRG 669 ==
LOC: 2 SOUTH 07:46
PROVIDERS: Internal Medicine; ADMITTING PHYSICIAN Internal Medicine; ATTENDING PHYSICIAN Hospitalist; CONSULT PHYSICIAN Urology; EMERGENCY PHYSICIAN Emergency Medicine
PROC: 0TBB8ZZ Excision of Bladder, Via Natural or Artificial Opening Endoscopic (ICD-10-PCS; 2024-11-10)
DX: C67.9 Malignant neoplasm of bladder, unspecified (principal); F03.911 Unspecified dementia, unspecified severity, with agitation; N39.0 Urinary tract infection, site not specified; E11.65 Type 2 diabetes mellitus with hyperglycemia; R31.0 Gross hematuria; N31.9 Neuromuscular dysfunction of bladder, unspecified; Z79.4 Long term (current) use of insulin; Z91.148 Patient's other noncompliance with medication regimen for other reason; E86.0 Dehydration; N28.1 Cyst of kidney, acquired; Z79.84 Long term (current) use of oral hypoglycemic drugs; F17.200 Nicotine dependence, unspecified, uncomplicated; I10 Essential (primary) hypertension; Z87.440 Personal history of urinary (tract) infections; Z88.0 Allergy status to penicillin
CPT/HCPCS: 88307; 51701; 51798; 76770; 80048; 80053; 81003; 81015; 82947; 82962; 83735; 85025; 85027; 87086; 93005; 96361; 96374; 96375; 97162; 99284; 99406

== ENCOUNTER 2024-11-14 08:26 | Inpatient (IN) | payer OTHER, SELFPAY ==
[2024-11-12 08:14] VITALS: BP 151/71
[2024-11-12 08:18] VITALS: BMI 21.5
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
[2024-11-12 08:42] LABS: Urine Albumin 1+ (Neg - Trace); Urine Bilirubin Negative (Negative); Urine Character Clear (Clear); Urine Color Yellow; Urine Glucose 4+ (Negative); Urine Ketone Negative (Negative); Urine Leukocyte Negative (Negative); Urine Nitrite Negative (Negative); Urine Occult Blood 4+ (Negative); Urine Urobilinogen Negative (Neg - 1+)
[2024-11-12 08:59] LABS: Urine Bacteria Few (Negative); Urine Red Blood Cell 30-40 /HPF (0-2)
[2024-11-12 09:00] LABS: Urine Yeast Many (Negative)
[2024-11-12 10:00] VITALS: BP 90/43
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
[2024-11-12 11:14] VITALS: BP 120/63
[2024-11-12 14:00] LABS: Glucose - Point of Care 589 mg/dl (70-99)
[2024-11-12] MEDS: GLUCOPHAGE 1000 MG PO ×2 (14:16→18:33)
--- NOTE | 2024-11-12 14:18 | EDRN ---
Per ER provider- pt does not need any additional tests; he did not get his AM Meds so will give them now - aware that POC was ' High'
[2024-11-12] MEDS: NOVOLOG MIX 70/30 FLEXPEN 20 UNITS SC (14:29)
[2024-11-12 15:05] LABS: Glucose 573 mg/dl (70-99)
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
[2024-11-12 16:30] LABS: % Basophils 0.3 % (0-2); % Eosinophils 0.7 % (0-6); % Immature Granulocytes 0.4 % (0-0.5); % Lymphocytes 17.3 % (20.5-51.1); % Monocytes 7.9 % (1.7-9.3); % Neutrophils 73.4 % (42.2-75.2); Absolute Eosinophils 0.1 10^3/uL (0-0.7); Absolute Immature Granulocytes 0.1 10^3/uL (0-0.05); Absolute Lymphocytes 2.1 10^3/uL (1.2-3.4); Absolute Monocytes 0.9 10^3/uL (0.1-0.6); Absolute Neutrophils 8.7 10^3/uL (1.4-6.5); Hematocrit 33.3 % (39.0-52.0); Hemoglobin 11.4 g/dL (13.0-18.0); Mean Corp Hgb Conc. 34.2 g/dL (33.0-37.0); Mean Corpuscular Hgb 30.4 pg (27.0-31.0); Mean Corpuscular Volume 88.8 fL (80.0-94.0); Mean Platelet Volume 10.2 fL (7.4-10.4); Nucleated Red Blood Cells % 0 % (-); Platelet Count 224 10^3/uL (130-400); Red Blood Cell Count 3.75 10^6/uL (4.70-6.10); Red Cell Dist. Width 12.7 % (11.5-14.5); White Blood Cell Count 11.8 10^3/uL (4.8-10.8)
[2024-11-12 16:39] LABS: ALT (SGPT) 11 U/L (0-50); AST (SGOT) 18 U/L (17-59); Albumin 3.5 g/dl (3.5-5.0); Alkaline Phosphatase 91 U/L (38-126); Blood Urea Nitrogen 17 mg/dl (9-20); Calcium 9.4 mg/dl (8.4-10.2); Carbon Dioxide 25 mmol/L (22-30); Chloride 100 mmol/L (98-107); Estimated Creatinine Clearance 84 ml/min; Glucose 363 mg/dl (70-99); Potassium 4.1 mmol/L (3.5-5.1); Sodium 135 mmol/L (135-145); Total Bilirubin 0.6 mg/dl (0.2-1.3); Total Protein 6.4 g/dl (6.3-8.2); eGFR > 60.00
[2024-11-12 16:55] LABS: B-Hydroxybutyrate 0.09 mmol/L (0.02-0.27)
[2024-11-12 17:00] VITALS: BP 110/83
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
[2024-11-12 18:01] VITALS: BMI 21.1
[2024-11-12 18:04] VITALS: BP 107/55
[2024-11-12 18:10] LABS: Glucose - Point of Care 258 mg/dl (70-99)
[2024-11-12] MEDS: NSS 500 IV (18:32)
[2024-11-12] MEDS: LOVENOX 40 MG SC (18:32)
[2024-11-12] MEDS: NOVOLOG FLEXPEN-LOW RESISTANCE 3 UNITS SC (19:11)
--- NOTE | 2024-11-12 19:18 | PTCARENOTE ---
Addendum entered by Hakan Murdock RN 11/12/24 19:20:
1755 Pt received from ED via stretcher. Pt AAOX2. Pt reoriented to date and time. Pt assisted from stretcher to bed with assist of 2 staff. Bed alarm armed and audible. Personal items within reach. All needs met.
Original Note:
1555 Pt received from ED via stretcher. Pt AAOX2. Pt reoriented to date and time. Pt assisted from stretcher to bed with assist of 2 staff. Bed alarm armed and audible. Personal items within reach. All needs met.
[2024-11-12 21:36] LABS: Glucose - Point of Care 261 mg/dl (70-99)
[2024-11-12 23:30] VITALS: BP 105/56
[2024-11-13 07:20] VITALS: BP 109/67
[2024-11-13 07:34] LABS: Glucose - Point of Care 298 mg/dl (70-99)
[2024-11-13] MEDS: GLUCOPHAGE 1000 MG PO ×2 (07:47→17:15)
[2024-11-13] MEDS: NOVOLOG FLEXPEN-LOW RESISTANCE 3 UNITS SC (07:47)
[2024-11-13] MEDS: NOVOLOG MIX 70/30 FLEXPEN 22 UNITS SC ×2 (07:49→17:15)
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
[2024-11-13 10:41] LABS: Glycohemoglobin (HgbA1c) 15.6 % (4.0-5.6)
[2024-11-13 11:42] LABS: Glucose - Point of Care 150 mg/dl (70-99)
--- NOTE | 2024-11-13 13:09 | CM ---
Met with patient at bedside.
PT rec Home Health
Options discussed-agreeable with [facility]
Notified Lisa liaison & referral placed in careport
[facility] came to see him this am.
CM left message with Alon at [facility] [phone] - await call back of investigation information
per previous CM note psych to eval for decisional capacity
PLAN: TBD, [facility]
--- NOTE | 2024-11-13 13:12 | VNURNOTE ---
Chart reviewed. Per BRITTNEY Meredith, request for [facility]. Patient forgetful, AAOx2 per chart. This author called patient's spouse, no answer, left message. Referral placed in Careport.
[2024-11-13] MEDS: NOVOLOG FLEXPEN-LOW RESISTANCE 1 UNITS SC (13:13)
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
[2024-11-13 15:18] VITALS: BP 104/41
[2024-11-13] MEDS: ATIVAN 0.5 MG PO (16:07)
[2024-11-13 16:31] LABS: Glucose - Point of Care 249 mg/dl (70-99)
[2024-11-13] MEDS: NOVOLOG FLEXPEN-LOW RESISTANCE 2 UNITS SC (17:14)
[2024-11-13] MEDS: LOVENOX 40 MG SC (17:19)
--- NOTE | 2024-11-13 17:57 | PTCARENOTE ---
Pt noted to have pulled out his white this afternoon. MD notified at this time. Recommend leaving white out to see if pt is able to urinate. Pt urinated large amount of incont urine. MD notified. Plan of care ongoing.
--- NOTE | 2024-11-13 18:45 | PTCARENOTE ---
This afternoon around 1700, pt was noted to be smoking a cigarette in his room. He had gotten it from the pocket of his coat. Staff quickly noticed and took cigarette, ordnance truck installation supervisor and box. Placed in patient lock box. notified with no new orders at
this time. Pt now sitting at bedside, easily directed. Plan of care ongoing.
[2024-11-13 19:29] VITALS: BP 117/55
[2024-11-13] MEDS: HALDOL 2 MG IV (19:56)
--- NOTE | 2024-11-13 20:29 | W.PN.UPDATE ---
Update Note
Progress Note Update
code Purple
Patient is agitated, confused, and trying to leave. Staff trying to redirect the patient but he is getting more aggressive.
Soft restraint applied for the patient`s safety and Haldol PRN given.
[2024-11-13 21:32] LABS: Glucose - Point of Care 178 mg/dl (70-99)
[2024-11-13] MEDS: ATIVAN 1 MG IV (21:39)
[2024-11-13] MEDS: NSS (PRESERVATIVE FREE) 0.5 ML IV (21:40)
[2024-11-13 23:00] VITALS: BP 138/72
--- NOTE | 2024-11-13 23:53 | PTCARENOTE ---
Patient continuing to get out of bed. Unable to redirect patient. Patient wandering around unit. Patient became aggressive, threatening staff. Code ana called. Security arrived and placed him back into his bed. Patient placed in four point
restraints for the patient's own safety and safety of staff. See MAR. Will continue to monitor.
--- NOTE | 2024-11-14 05:46 | DOWNTIME ---
There was a [employer] Client Drafter (Cad) Electronic Downtime on 11/14/2024 from 0200 to 11/15/2023 at 0318 . Downtime documentation of patient's care, including medication administrations, has been reconciled in the electronic record per guidelines. Refer to the
patient's paper chart under the miscellaneous tab to see printed paper medication records and downtime forms.
[2024-11-14 07:29] VITALS: BP 145/76
[2024-11-14 07:31] LABS: Glucose - Point of Care 149 mg/dl (70-99)
[2024-11-14] MEDS: NOVOLOG FLEXPEN-LOW RESISTANCE SC (07:35)
[2024-11-14 07:43] LABS: % Basophils 0.5 % (0-2); % Eosinophils 0.8 % (0-6); % Immature Granulocytes 0.4 % (0-0.5); % Lymphocytes 23.7 % (20.5-51.1); % Monocytes 8.2 % (1.7-9.3); % Neutrophils 66.4 % (42.2-75.2); Absolute Basophils 0.1 10^3/uL (0-0.2); Absolute Eosinophils 0.1 10^3/uL (0-0.7); Absolute Immature Granulocytes 0.1 10^3/uL (0-0.05); Absolute Lymphocytes 2.7 10^3/uL (1.2-3.4); Absolute Monocytes 0.9 10^3/uL (0.1-0.6); Absolute Neutrophils 7.6 10^3/uL (1.4-6.5); Hematocrit 33.4 % (39.0-52.0); Hemoglobin 11.4 g/dL (13.0-18.0); Mean Corp Hgb Conc. 34.1 g/dL (33.0-37.0); Mean Corpuscular Hgb 30.2 pg (27.0-31.0); Mean Corpuscular Volume 88.4 fL (80.0-94.0); Mean Platelet Volume 10.8 fL (7.4-10.4); Nucleated Red Blood Cells % 0 % (-); Platelet Count 236 10^3/uL (130-400); Red Blood Cell Count 3.78 10^6/uL (4.70-6.10); Red Cell Dist. Width 12.3 % (11.5-14.5); White Blood Cell Count 11.5 10^3/uL (4.8-10.8)
[2024-11-14] MEDS: NOVOLOG MIX 70/30 FLEXPEN 22 UNITS SC ×2 (07:48→17:12)
[2024-11-14] MEDS: GLUCOPHAGE 1000 MG PO ×2 (07:48→17:10)
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
[2024-11-14 08:02] LABS: Blood Urea Nitrogen 19 mg/dl (9-20); Calcium 9.2 mg/dl (8.4-10.2); Carbon Dioxide 27 mmol/L (22-30); Chloride 101 mmol/L (98-107); Estimated Creatinine Clearance 80 ml/min; Glucose 129 mg/dl (70-99); Potassium 4.5 mmol/L (3.5-5.1); Sodium 135 mmol/L (135-145); eGFR > 60.00
[2024-11-14 10:43] LABS: Glucose - Point of Care 157 mg/dl (70-99)
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
--- NOTE | 2024-11-14 10:57 | PTCARENOTE ---
11/14/2024 DIABETES EDUCATION
I outreached patient's Kim, asked her to come into the hospital for diabetes education. She agreed and stated she has a event marketing intern at her house now, unsure how long he will be there. I asked her to contact me by this afternoon at my direct line
when she can travel to [facility], she agreed.
[2024-11-14] MEDS: NOVOLOG FLEXPEN-LOW RESISTANCE 1 UNITS SC ×2 (13:17→17:11)
--- NOTE | 2024-11-14 13:41 | PTCARENOTE ---
11/14/2024 DIABETES EDUCATION
I received phone call from patient's spouse, Kim. States she cannot come in to the hospital today, the orthopedic shoe fitter is still at her house. I asked her to come in tomorrow, she states she works from 2pm - 10pm and asked what time is best to come in. I
suggested 10am, she states she will contact me tomorrow to confirm if she can come in. She has my direct line.
--- NOTE | 2024-11-14 14:00 | PTCARENOTE ---
At change of shift pt remains on 4 point restraints and on 1:1. He was removed from ankle restraints about an hour prior. New order obtained from MD around 0800. Pt did very well off of ankle restraints for about 2 hours. He then was seen by Psych
MD with recommendations to remove wrist restraints. Wrist restraints were then removed and new order was obtained around 1000. Pt remains pleasant and cooperative. MD updated and aware of pts status. 1:1 remains. Plan of care ongoing.
[2024-11-14 15:18] VITALS: BP 108/48
[2024-11-14 16:41] LABS: Glucose - Point of Care 186 mg/dl (70-99)
[2024-11-14] MEDS: LOVENOX 40 MG SC (17:11)
[2024-11-14] MEDS: RISPERDAL M-TAB (ORALLY DISINTEGRATING) 0.5 MG PO (18:01)
[2024-11-14] MEDS: HALDOL 2 MG IV (19:02)
[2024-11-14 22:13] LABS: Glucose - Point of Care 51 mg/dl (70-99)
[2024-11-14] MEDS: DEXTROSE 50% SYRINGE 12.5 GRAMS IV (22:19)
[2024-11-14 22:46] LABS: Glucose - Point of Care 130 mg/dl (70-99)
[2024-11-14 23:00] VITALS: BP 158/63
[2024-11-15 00:56] LABS: Glucose - Point of Care 69 mg/dl (70-99)
[2024-11-15] MEDS: DEXTROSE 50% SYRINGE 12.5 GRAMS IV (01:06)
[2024-11-15 01:30] LABS: Glucose - Point of Care 136 mg/dl (70-99)
[2024-11-15 03:46] LABS: Glucose - Point of Care 95 mg/dl (70-99)
[2024-11-15 05:49] LABS: Glucose - Point of Care 86 mg/dl (70-99)
[2024-11-15 07:28] LABS: % Basophils 0.5 % (0-2); % Eosinophils 1.2 % (0-6); % Immature Granulocytes 0.5 % (0-0.5); % Lymphocytes 27.6 % (20.5-51.1); % Monocytes 7.4 % (1.7-9.3); % Neutrophils 62.8 % (42.2-75.2); Absolute Basophils 0.1 10^3/uL (0-0.2); Absolute Eosinophils 0.1 10^3/uL (0-0.7); Absolute Immature Granulocytes 0.1 10^3/uL (0-0.05); Absolute Lymphocytes 2.8 10^3/uL (1.2-3.4); Absolute Monocytes 0.8 10^3/uL (0.1-0.6); Absolute Neutrophils 6.5 10^3/uL (1.4-6.5); Hematocrit 35.9 % (39.0-52.0); Hemoglobin 12.1 g/dL (13.0-18.0); Mean Corp Hgb Conc. 33.7 g/dL (33.0-37.0); Mean Corpuscular Volume 89.1 fL (80.0-94.0); Mean Platelet Volume 10.3 fL (7.4-10.4); Nucleated Red Blood Cells % 0 % (-); Platelet Count 258 10^3/uL (130-400); Red Blood Cell Count 4.03 10^6/uL (4.70-6.10); Red Cell Dist. Width 12.7 % (11.5-14.5); White Blood Cell Count 10.3 10^3/uL (4.8-10.8)
[2024-11-15 07:29] VITALS: BP 117/58
[2024-11-15 07:34] LABS: Glucose - Point of Care 101 mg/dl (70-99)
[2024-11-15 07:43] LABS: Blood Urea Nitrogen 24 mg/dl (9-20); Calcium 9.5 mg/dl (8.4-10.2); Carbon Dioxide 29 mmol/L (22-30); Chloride 102 mmol/L (98-107); Estimated Creatinine Clearance 70 ml/min; Glucose 90 mg/dl (70-99); Potassium 4.5 mmol/L (3.5-5.1); Sodium 138 mmol/L (135-145); eGFR > 60.00
[2024-11-15] MEDS: GLUCOPHAGE 1000 MG PO ×2 (09:00→17:44)
[2024-11-15] MEDS: NOVOLOG FLEXPEN-LOW RESISTANCE SC (09:02)
[2024-11-15] MEDS: NOVOLOG MIX 70/30 FLEXPEN 22 UNITS SC ×2 (09:06→17:48)
--- NOTE | 2024-11-15 11:11 | CM ---
Addendum entered by Niecy Ribeiro 11/15/24 16:15:
IMM explained to son/ & signed. In chart
Original Note:
Met with & son Alfonso at bedside
they are awaiting Marianna adaptive physical educator
agreeable to take patient home with [facility] (RN/PT/OT/ASSISTANT MANAGER TRAINEE)
Alon [phone] from [facility] protective services spoke with today
Alon will be following up at the home
& son states firearms locked away.
BRITTNEY gave pamphlets of LTC facilities as well as financial applications for [employer]
Discussed with Alon/[facility] liaison medicaid application needs to be given to to start process.
Pamphlets given for private caregivers.
PLAN: home with [facility] & [facility] following
family to transport
[2024-11-15 11:48] LABS: Glucose - Point of Care 275 mg/dl (70-99)
--- NOTE | 2024-11-15 11:54 | W.PN.UPDATE ---
Update Note
Progress Note Update
noted home issues have been resolved and patient likely being dc'ed today psych signing off.
--- NOTE | 2024-11-15 12:21 | PTCARENOTE ---
11/14/2024 DIABETES EDUCATION
I met with Mert, his Kim and son to review diabetes management. Mert was laying in bed in a calm manner, agreeable and receptive to education.
His states that they have insulin at home and 3 glucose meters but he refuses to comply with using both. Patient asked and son if they do have these supplies at home.
I educated on physiology of T2D, organ damage, managing with medications, monitoring BG, nutrition,hydration and activity. Patient states he does not drink much water and spouse states he does not walk or exercise (if he goes outside he calls the
supervisor filter assembly looking for his car keys).
I reinforced signs of hyperglycemia, hypoglycemia and hypoglycemia protocol; BS parameters and recommended HbA1c goals, written material provided.
Mr. Limon declined glucometer demonstration, states he knows how check his glucose and he has 3 glucometers at home. Declined prescription for additional supplies. I verbally reinforced proper technique for SMBG. I provided a [employer]
glucometer kit, explained their are only 10 test strips in the kit. If they have kits at home, please ensure test strips are not . All verbalized understanding. Educated on [employer] glucometer, test strips and lancets if needed and
unable to obtain MD order. Provided brochure on CGM, encouraged him to discuss with his PCP.
I educated and demonstrated proper insulin injection technique, timing, and storage. Discussed short acting insulin; onset/peak/duration. Educated to take Novolog 15 minutes before meals, and do not take if not eating or could lead to hypoglycemia.
Discussed normal target glucose ranges and a monitoring schedule 15 minutes before each meal when prescribed Novolog. Patient and family verbalized understanding.
Encouraged patient to follow up with his PCP for post d/c appointment and to monitor medication and blood glucose levels. Provided list of endocrinologists if desired, to contact insurance company to verify in network status. Patient , ,
and son verbalized understanding. His states she can help him with SMBG and insulin injection in the morning, she works in the evening. Son states he can help when he is home, states that often patient refuses to check glucose or insulin
injections.
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
[2024-11-15] MEDS: NOVOLOG FLEXPEN-LOW RESISTANCE 3 UNITS SC (13:03)
[2024-11-15 15:16] VITALS: BP 109/55
[2024-11-15 16:30] LABS: Glucose - Point of Care 358 mg/dl (70-99)
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
[2024-11-15] MEDS: NOVOLOG FLEXPEN-LOW RESISTANCE 5 UNITS SC (17:45)
[2024-11-15] MEDS: LOVENOX 40 MG SC (17:49)
--- NOTE | 2024-11-15 17:57 | PTCARENOTE ---
jesús flow- called to Vipul the son and reviewed discharge instructions. Vipul the son states that he will be coming at [phone] to pick his father up.
== END 2024-11-15 21:12 | disposition home health service (06) | DRG 884 ==
LOC: 3 WEST ACU 08:26
PROVIDERS: Physician Assistant; Physician Assistant Medical; ADMITTING PHYSICIAN Hospitalist; ATTENDING PHYSICIAN Hospitalist; CONSULT PHYSICIAN Psychiatry & Neurology Psychiatry; EMERGENCY PHYSICIAN Emergency Medicine; FAMILY PHYSICIAN Family Medicine
DX: F03.911 Unspecified dementia, unspecified severity, with agitation (principal); I10 Essential (primary) hypertension; E10.65 Type 1 diabetes mellitus with hyperglycemia; F17.210 Nicotine dependence, cigarettes, uncomplicated; C67.9 Malignant neoplasm of bladder, unspecified; R33.8 Other retention of urine; R31.0 Gross hematuria; N31.9 Neuromuscular dysfunction of bladder, unspecified; Z91.148 Patient's other noncompliance with medication regimen for other reason; Z79.84 Long term (current) use of oral hypoglycemic drugs; Z79.4 Long term (current) use of insulin; Z78.1 Physical restraint status; Z63.8 Other specified problems related to primary support group; Z88.0 Allergy status to penicillin
CPT/HCPCS: 80048; 80053; 81003; 81015; 82010; 82947; 82962; 83036; 85025; 93005; 96372; 97116; 97530; 97535; 99285; 99406

== ENCOUNTER 2025-01-21 06:43 | Inpatient (IN) | payer MEDICARE, SELFPAY ==
[2025-01-21] VITALS (25 sets, daily range): BP systolic 95–137; BP diastolic 41–78; PULSE 69; O2SAT 97; BMI 17.6; BMI 17.2
[2025-01-21 02:17] LABS: Hematocrit 40.0 % (39.0-52.0); Hemoglobin 14.0 g/dL (13.0-18.0); Mean Corp Hgb Conc. 35.0 g/dL (33.0-37.0); Mean Corpuscular Volume 84.2 fL (80.0-94.0); Nucleated Red Blood Cells % 0 % (-); Platelet Count 313 10^3/uL (130-400); Red Cell Dist. Width 12.7 % (11.5-14.5)
[2025-01-21 02:51] LABS: INR 1.00; PT 13.5 Sec (11.4-14.6)
[2025-01-21 02:52] LABS: APTT 32.6 Sec (23.4-35.0)
[2025-01-21 02:59] LABS: ALT (SGPT) < 10 U/L (0-50); AST (SGOT) 15 U/L (17-59); Albumin 3.9 g/dl (3.5-5.0); Alkaline Phosphatase 100 U/L (38-126); Blood Urea Nitrogen 42 mg/dl (9-20); Calcium 10.0 mg/dl (8.4-10.2); Carbon Dioxide 14 mmol/L (22-30); Chloride 99 mmol/L (98-107); Estimated Creatinine Clearance 40 ml/min; Glucose 435 mg/dl (70-99); Potassium 5.2 mmol/L (3.5-5.1); Sodium 136 mmol/L (135-145); Total Protein 7.1 g/dl (6.3-8.2); eGFR > 60.00
[2025-01-21] MEDS: NSS 1000 IV ×2 (03:14→07:49)
--- NOTE | 2025-01-21 03:27 | ED.GENMED ---
History of Present Illness
General
Chief Complaint: Fall
Source: patient, ambulance crew and previous hospital records (Several previous hospitalizations, most recently twice in October for treatment of poorly controlled diabetes without acidosis, UTI, urinary retention, dementia, failure to thrive)
Exam Limitations: dementia
Time Seen by Provider: 01/21/25 03:18
Nursing documentation reviewed up to this point in time: agreed with
History of Present Illness
History of Present Illness:
This is a 74-year-old gentleman with history of dementia, remote history of TBI, history of insulin requiring diabetes with chronic poor compliance with insulin. He has history of BPH with urinary retention along with history of UTIs with prior
hospitalizations here, most recently twice in October for treatment of UTI, urinary retention, poorly controlled diabetes, agitation related to dementia.
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
He presents via EMS with concern for frequent falls, possible head injury and some concern for ongoing weight loss, failure to thrive. Patient has ongoing tobacco use. Admits to poor compliance with insulin regimen due to dementia.
He denies pain and is requesting to go home.
Patient resides at home with his .
He arrives via EMS. No family members accompanying.
History of dementia, poor historian. HPI is quite limited.
Extensive review of recent hospitalizations x 2 in October.
Past History
Past History
ED Past Medical History: Cancer (Bladder cancer), HTN, IDDM, NIDDM (Insulin requiring diabetes), Psychiatric (Dementia), Other (Urinary retention/neurogenic bladder) and Other (TBI 2008)
ED Past Surgical History: Brain (Unclear if he had surgery after his head injury)
Social History
Tobacco: Smoker
Alcohol: None
Drug: None
Personal:
Living: with family
Employment: Retired
Family History
Family History: Diabetes
Phy Exam
Physical Exam
Physical Exam:
GENERAL: 74-year-old gentleman appears somewhat older than stated age. Moderately thin build. He is awake and alert, oriented x 2. Moderate odor of tobacco about the patient. Overall appears comfortable, cooperative. In no acute distress.
EYE: pupils equal and reactive. anicteric. The head is normocephalic, atraumatic.
NECK: Supple, nontender, no meningismus, no significant adenopathy.
ENT: posterior pharynx is clear, oral mucosa is dry. No rhinorrhea.
CARDIAC: Regular rate and rhythm. no murmur.
LUNGS: Clear breath sounds bilaterally, no acute respiratory distress, no wheezes/rales/rhonchi
ABDOMEN: Soft, nondistended, without focal tenderness, no r/g, no cvat. normoactive BS. Bladder is not palpably distended.
NEUROLOGICAL: Alert and oriented x2, no focal neuro deficits.
SKIN: Warm and dry, normal color, skin intact. Poor turgor. No rash.
MUSCULOSKELETAL: No C/C/E. peripheral pulses are full and equal b/l. No palpable tenderness.
PSYCH: Poor short-term memory. Cooperative.
Course
Orders/Labs/Results
Orders:
Orders
01/21/25 02:03
CBC/With Diff [Complete Blood Count/With Diff] Urgent
01/21/25 02:36
B-Hydroxybutyrate Urgent
Comment: ADDED
Comprehensive Metabolic Panel Urgent
Comment: REDRAW
INR [Prothrombin Time] Urgent
PTT Urgent
01/21/25 03:14
0.9% Sodium Chloride 1000 ml [Nss] 1,000 ml IV BOLUS
01/21/25 03:22
CT Head W/o Iv Contrast Urgent
Comment:
Reason For Exam: multiple falls at home, confusion
01/21/25 03:35
pH - Venous Urgent
01/21/25 05:10
Urinalysis Reflex To Culture Urgent
Date Specimen was Collected: 01/21/25
Time Specimen was Collected: 05:09
Urine Microscopic Reflex Cult Urgent
Urine Culture Urgent
CHUY Source: U
Specimen Description:
Date Specimen was Collected: 01/21/25
Time Specimen was Collected: 05:09
01/21/25 05:41
Bedside Glucose- Treatment ONCE
01/21/25 05:46
0.9% Sodium Chloride 1000 ml [Nss] 1,000 ml IV 500 mls/hr
01/21/25 06:05
Bedside Glucose- Treatment Q1H
IV Insert/Care/Rem.- Treatment PRN
Reg Insulin 100 Units/100 ml [Novolin R Insulin Infusion] 100 units in 100 ml IV NOW
01/21/25 06:15
Basic Metabolic Panel Q2H
01/21/25 08:15
Basic Metabolic Panel Q2H
01/21/25 10:15
Basic Metabolic Panel Q2H
Abnormal Lab Results
01/21/25 01/21/25 01/21/25
02:03 02:36 05:10
Abs Immat Gran (auto) 0.1 H 10^3/uL
(0-0.05)
Absolute Neuts (auto) 8.4 H 10^3/uL
(1.4-6.5)
Neutrophils % 79.0 H %
(42.2-75.2)
Lymphocytes % 13.9 L %
(20.5-51.1)
Potassium 5.2 H mmol/L
(3.5-5.1)
Carbon Dioxide 14 L* mmol/L
(22-30)
BUN 42 H mg/dl
(9-20)
Glucose 435 H mg/dl
(70-99)
AST 15 L U/L
(17-59)
Urine Ketones 3+ A
(Negative)
Ur Occult Blood Reflex 4+ A
(Negative)
Leukocyte Esterase Rfl 3+ A
(Negative)
Urine Glucose 4+ A
(Negative)
Urine Albumin (Reflex) 2+ A
(Neg - Trace)
B-Hydroxybutyrate > 9 H mmol/L
(0.02-0.27)
POC Glucose
01/21/25
05:51
Abs Immat Gran (auto)
Absolute Neuts (auto)
Neutrophils %
Lymphocytes %
Potassium
Carbon Dioxide
BUN
Glucose
AST
Urine Ketones
Ur Occult Blood Reflex
Leukocyte Esterase Rfl
Urine Glucose
Urine Albumin (Reflex)
B-Hydroxybutyrate
POC Glucose 460 H* mg/dl
(70-99)
01/21/25 02:03
01/21/25 02:36
Vital Signs
Initial and Last Documented VS:
Initial Vital Signs
Pulse Resp BP Pulse Ox
86 18 137/76 98
01/21/25 01:42 01/21/25 01:42 01/21/25 01:42 01/21/25 01:42
Last Documented Vital Signs
Pulse Resp BP Pulse Ox
97 28 106/66 97
01/21/25 02:41 01/21/25 02:41 01/21/25 05:04 01/21/25 05:05
MDM/Problems Addressed
Differential Diagnosis Includes:
Concern for closed head injury, other consideration is CVA.
Concern for exacerbation of chronically poorly controlled diabetes related to noncompliance with insulin. Hemoglobin A1c over 15 in October of this year. Concern for DKA however no prior episodes of DKA.
Concern for starvation ketosis. Failure to thrive. Progression of dementia. Hyperthyroidism. Patient has lost 9 kg since last hospitalization November 12.
Concern for recurrent UTI.
Labs reveal unremarkable CBC but markedly elevated glucose 435, mildly elevated potassium of 5.2, with metabolic acidosis. Anion gap of 23.
Concerning for DKA.
Moderately elevated BUN of 42, has trended up from baseline of 20 most consistent with dehydration.
Creatinine of 1.2. Baseline 0.7-0.8.
Patient however appears comfortable without tachypnea nor tachycardia. He is afebrile. Normotensive.
Will initiate IV fluid bolus. Check venous pH, lactic acid.
Will check CT of the head as well as urinalysis.
Chronic conditions affecting care: DM, Neurological disorder, Psychiatric illness and Cancer
*Radiology
Radiology exam reviewed: radiology read reviewed (CT of the head shows no acute traumatic findings)
*Pulse Oximetry
SaO2: 98
Oxygen Mode of Delivery: Room air
Patient hypoxic: no
*Tensile Tester Interpretation
Rate: normal
Interpretation: normal
Rhythm: sinus
*Critical Care Note
Total Time (30-74mins, 75-104mins- exclusive of procedures): Not Applicable
Update Note
Update Note:
05:50
Patient sleeps when undisturbed.
Remains hemodynamically stable and overall comfortable in appearance.
Beta hydroxybutyrate quite elevated greater than 9. Venous pH within normal limits.
CT of the head shows no acute traumatic findings.
Preliminary urinalysis suspicious for UTI with +3 leukocyte esterase. Microscopic is pending.
Will continue IV fluids, will initiate IV insulin for elevated glucose with acidosis.
Will admit to hospitalist service.
ED Attending Note
-
Portions of this chart may have been created with voice recognition software.� Occasional wrong word or��sound alike� substitutions may have occurred due to the inherent limitations of voice recognition software.
Discharge Plan
Departure
Patient Disposition: Admit
Date of Disposition: 01/21/25
Time of Disposition: 05:47
Admit to: IMU
Admit to doctor: Reji
Presentation/result/management discussed w/ accepting MD/DO: Hospitalist
Discharge Problem:
DKA, type 2, Frequent falls, Adult failure to thrive
Prescriptions:
No Action
insulin asp prt-insulin aspart 100 unit/mL (70-30) Insulin Pen
22 unit SC DAILY 30 Days Qty: 15 4RF
Rx Instructions:
Take 22U Insulin @ 7:00AM
insulin asp prt-insulin aspart 100 unit/mL (70-30) Insulin Pen
22 unit SC DAILY@1700 30 Days Qty: 15 0RF
Rx Instructions:
Take 22U at 5:00PM
metformin 1,000 mg Tablet
1,000 mg PO BID@0800,1700 Qty: 60 0RF
Referrals:
Niecy Zhong MD [Family Provider, Family Practice]
Interventions
Interventions:
*Risk Screen - Suicide Last Done: 01/21/25 01:42
*General Assessment Last Done: 01/21/25 01:42
*Neglect/Abuse Screening Last Done: 01/21/25 01:42
*ED- Fall Risk Assessment Last Done: 01/21/25 01:42
*ED COVID-19 Vaccine History Last Done: 01/21/25 01:42
ED-Musculoskeletal Assessment Last Done: 01/21/25 02:05
ED- Neurological Assessment Last Done: 01/21/25 02:05
ED-Skin Assessment Last Done: 01/21/25 02:05
Discharge Date and Time
Print Language: KHMER
[2025-01-21 03:45] LABS: pH - Venous 7.27 (7.32-7.43)
[2025-01-21 05:27] LABS: Urine Character Slightly Cloudy (Clear)
[2025-01-21 05:53] LABS: Glucose - Point of Care 460 mg/dl (70-99)
[2025-01-21 06:28] LABS: Urine White Cell >100 /HPF (0-5)
[2025-01-21 06:30] LABS: Urine Squamous Cell >30 /LPF (Few); Urine Urothelial Cell >30 /LPF (FEW)
[2025-01-21] MEDS: NOVOLIN R INSULIN INFUSION 100 IV (06:30)
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
[2025-01-21 06:59] LABS: Blood Urea Nitrogen 40 mg/dl (9-20); Calcium 9.4 mg/dl (8.4-10.2); Carbon Dioxide 12 mmol/L (22-30); Estimated Creatinine Clearance 44 ml/min; Glucose 423 mg/dl (70-99); Sodium 135 mmol/L (135-145); eGFR > 60.00
[2025-01-21 07:08] LABS: Chloride 102 mmol/L (98-107)
[2025-01-21 07:24] LABS: Magnesium 2.1 mg/dl (1.6-2.3)
[2025-01-21 08:38] LABS: Blood Urea Nitrogen 39 mg/dl (9-20); Calcium 9.3 mg/dl (8.4-10.2); Carbon Dioxide 15 mmol/L (22-30); Chloride 105 mmol/L (98-107); Estimated Creatinine Clearance 48 ml/min; Glucose 299 mg/dl (70-99); Potassium 4.1 mmol/L (3.5-5.1); Sodium 138 mmol/L (135-145); eGFR > 60.00
--- NOTE | 2025-01-21 08:45 | PTCARENOTE ---
Pt arrived from the ED with RN, monitored with 0.9nss bolus infusing via right hand #18g and Insulin drip @ 5.4units/hr via right FA#20g. Right upper arm 20g flushed and patent. He is repetitively complaining that he is cold while we are providing
his CHG bath and thorough skin assessment. He is forgetful and speaks in a monotone voice. Good peripheral pulses. Lungs CTA, poor inspiratory effort. Pulse oximetry 97%. Cachectic. +BSx4. CHG bath provided. Penis with yeast along his shaft
w/redness and inflammation. Scrotum with area of discoloration, pale in color. Left lower FA with intact scab, Left upper arm with small ecchymotic area and small scab in the center of that. Left ear with area of dry skin vs old scab, Sacrum with
scabbed area with surrounding skin rippled and hard. Heels blanchable red. Left hip with superficial scab and reddened area, surrounding skin slightly darker. Skin barrier applied to B/L heels w/adhesive foam dressings applied. Sacrum with skin
barrier and SBD. Penis cleansed and yeast buildup removed with CHG wipes. Dr. Lemus notified of yeast and interventions thus far pertaining to fluid resuscitation and Insulin drip. Safe environment maintained. He was informed multiple times of the
tipton of care, frequent assessment of his blood work, rehydration, and preventive care of DVT's, PNA and bed sores. He verbalized his understanding. Safe environment maintained.
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
[2025-01-21 09:00] LABS: Glucose - Point of Care 239 mg/dl (70-99)
--- NOTE | 2025-01-21 09:07 | CON.INTV ---
Consultation
Consultation Request
Date/Time Consultation Requested: 01/21/2025-9 AM
Date/Time Consultation Performed: 01/21/2025-9 AM
Requesting Provider: Hospitalist
Performing Provider: Dr. Lemus
Reason for Consultation: DKA
Medical History
-
Chief Complaint: DKA
History of Present Illness:
74-year-old smoking male who appears cachectic and ill With underlying diabetes and TBI presented with failure to thrive/frequent falls and DKA-hitcher consulted for DKA/critical care management 01/21/2025.Patient appears to be a poor historian.
He denies any shortness of breath at rest, chest pain, chest congestion, productive cough, abdominal pain or focal weakness.
Past Medical History
Past Medical History: None (Diabetes. TBI. Hypertension. Bladder cancer. Cigarette smoker. Tonsillectomy. Salivary gland excision. TURBT.)
Social History
Tobacco: Smoker (1 pack a day ongoing-55 pack years)
Alcohol: Occasional
Drug: None
Living: With Family
Occupational Exposures: No known asbestos exposure
Environmental Exposures: No known tuberculosis exposure
Family History
Family History: Reviewed & Not Pertinent
Allergies / Home Medications
Allergies
Allergy/AdvReac Type Severity Reaction Status Date / Time
aspirin Allergy Rash Verified 11/12/24 13:44
Penicillins Allergy Rash Verified 11/12/24 13:44
Home Medications
�Medication �Instructions �Recorded �Confirmed �Last Taken �Type
metformin 1,000 mg tablet 1,000 mg PO BID@0800,1700 Diabetes 11/11/24 01/21/25 Unknown Rx
#60 tabs
insulin aspar prot-insulin aspart 22 unit SC BID Diabetes 01/21/25 01/21/25 Unknown History
100 unit/mL (70-30) subcutaneous
pen
Review of Systems
-
Unable to Obtain full review of systems at this time due to: Other (Per HPI)
Vitals / Labs / Diagnostic Testing
Vital Signs
Temp Pulse Resp BP Pulse Ox
97.4 F 86 18 123/60 99
01/21/25 09:04 01/21/25 08:00 01/21/25 06:35 01/21/25 07:09 01/21/25 08:00
Lab Data
01/21/25 02:03
Laboratory Results
01/21/25
02:36
PT 13.5
INR 1.00
APTT 32.6
Diagnostic Testing:
Physical Exam
-
Exam:
Well-nourished Cachectic and chronically ill appearing gentleman in no apparent distress
HEENT-atraumatic, normocephalic
Neck-supple, no JVD, no bruit
Heart-regular rate and rhythm-no murmurs, rubs or gallops
Chest with diminished breath sounds but no wheezes or crackles
Abdomen-soft, nontender, nondistended, no hepatosplenomegaly
Extremities-no cyanosis, clubbing, edema and good peripheral pulses
Integument-intact, no rashes, lesions or ecchymosis
Neurology-alert and oriented, nonfocal motor and sensory exam
Assessment
-
74-year-old smoking male who appears cachectic and ill With underlying diabetes and TBI presented with failure to thrive/frequent falls and DKA-hitcher consulted for DKA/critical care management 01/21/2025.Patient appears to be a poor historian.
DKA- Initial blood sugar 435
Anion gap metabolic acidosis- Anion gap 23
Diabetes
Failure to thrive
AMBER
Conditions present prior to admission:
Diabetes.
TBI.
Hypertension.
Bladder cancer.
Dementia
Cigarette smoker.
Tonsillectomy. Salivary gland excision. TURBT.
Plan
Patient will be admitted to medical intensive care unit for close monitoring
Supplemental oxygen as needed
Monitor blood sugar
Monitor anion gap
Insulin drip
Check V5w-yblm 15.6 on 11/12/24
Diabetic nurse practitioner consultation
Intravenous fluid resuscitation
Monitor potassium closely and replace appropriately
Smoking cessation counseling
DVT prophylaxis
Early nutrition
Early mobilization
Outpatient pulmonary evaluation with PFTs
Critical care statement: A total of 55 minutes of critical care time was provided for this patient today. This includes management of unstable vital signs, insulin drip management, evaluation of the patient at bedside, reviewing the patient's
pertinent medical records including radiographs, microbiology, laboratory evaluations, and discussion with primary team, consultants, charge nurse, and critical care nursing.
Diagnostic data:
Data Reviewed
-
EKG: Report reviewed by me
Medical Tests (Nuc Med, Echo etc): Report reviewed by me
Labs: Labs reviewed by me
Old Records: Reviewed
Critical Care Time (in minutes): 55
[2025-01-21] MEDS: NSS with KCL 20 MEQ 1000 IV (09:48)
[2025-01-21] MEDS: NICODERM TRANSDERMAL 21 MG TRANSDERM (09:50)
[2025-01-21] MEDS: HEPARIN 5000 UNITS SC ×2 (09:51→19:40)
--- NOTE | 2025-01-21 10:05 | PTCARENOTE ---
Pt spoke with his Kim on the phone. He forgets that he spoke with her.
[2025-01-21 10:07] LABS: Glucose - Point of Care 178 mg/dl (70-99)
[2025-01-21] MEDS: DIFLUCAN 200 MG PO (10:14)
[2025-01-21 11:10] LABS: Glucose - Point of Care 151 mg/dl (70-99)
[2025-01-21 12:12] LABS: Glucose - Point of Care 117 mg/dl (70-99)
[2025-01-21] MEDS: D5/0.45%NSS with KCL 20 MEQ 1000 IV (12:18)
[2025-01-21 12:41] LABS: Blood Urea Nitrogen 35 mg/dl (9-20); Calcium 9.6 mg/dl (8.4-10.2); Carbon Dioxide 25 mmol/L (22-30); Chloride 109 mmol/L (98-107); Estimated Creatinine Clearance 52 ml/min; Glucose 111 mg/dl (70-99); Potassium 4.1 mmol/L (3.5-5.1); Sodium 140 mmol/L (135-145); eGFR > 60.00
--- NOTE | 2025-01-21 12:48 | PN.DE.MGMTRT ---
Insulin Management
- -
01/21/2025 Diabetes Management Consult
Patient admitted 01/21 via ambulance from home s/p fall. Found to be in DKA with glucose 435, GAP 23. PMH dementia, diabetes, bladder CA, HTN, urinary retention. Patient know to me from prior admissions. Prior to admission was ordered 70/30
insulin 22 units BID. A1C 11/12 15.6%, repeat ordered. cr .9, eGFR >60.
Patient is asleep not disturbed. DKA Insulin infusion at 2 units per hour. 8AM GAP 18, most recent GAP 6. Will continue insulin infusion at this time. If repeat BMP @ 1600 with GAP closed will transition to subcutaneous regimen: 70/30 22 units
@ dinner, insulin infusion off 1 hour later. 70/30 BID to continue in AM with low corrective insulin.
At patients previous admission he was unable to prepare and inject insulin himself. I am not sure if family is helping him at home or he is just not receiving the insulin.
Discussed with nurse.
Will follow
Diabetes History
- -
Type of Diabetes: 2 requiring insulin
Pre-Admission Diabetes Regimen
01/21/25 01/21/25 01/21/25
02:03 02:36 06:25
Creatinine Cancelled 1.2 1.1
01/21/25 01/21/25 01/21/25
08:13 10:15 12:11
Creatinine 1.0 Cancelled 0.9
Insulin Pump Settings
IP Diabetes Regimen
01/21/25 01/21/25 01/21/25
02:03 02:36 05:51
Glucose Cancelled 435 H
POC Glucose 460 H*
01/21/25 01/21/25 01/21/25
06:25 08:13 08:13
Glucose 423 H 299 H Cancelled
POC Glucose
01/21/25 01/21/25 01/21/25
08:48 09:55 10:15
Glucose Cancelled
POC Glucose 239 H 178 H
01/21/25 01/21/25 01/21/25
10:58 12:01 12:11
Glucose 111 H
POC Glucose 151 H 117 H
Patient Education
[2025-01-21 12:57] LABS: Glycohemoglobin (HgbA1c) 18.3 % (4.0-5.6)
--- NOTE | 2025-01-21 13:06 | PTCARENOTE ---
Reviewed the plan of care with Cindy Hopson regarding transitioning off the insulin drip this afternoon at dinner. Dr. Lemus and resident was notified of this plan via TT.
[2025-01-21 13:14] LABS: Glucose - Point of Care 147 mg/dl (70-99)
[2025-01-21 14:12] LABS: Glucose - Point of Care 188 mg/dl (70-99)
[2025-01-21 14:42] LABS: Hepatitis C Antibody Negative (Negative)
[2025-01-21 15:19] LABS: Glucose - Point of Care 281 mg/dl (70-99)
[2025-01-21 16:03] LABS: Glucose - Point of Care 168 mg/dl (70-99)
--- NOTE | 2025-01-21 16:11 | PTCARENOTE ---
No changes in his assessment. He opened his eyes to verbal and tactile stimuli. Denture care performed. Dinner has been ordered. He is aware that he will eat dinner and be given insulin and the drip will be stopped an hour after that. He will need
reinforcement.
--- NOTE | 2025-01-21 16:36 | W.PN.UPDATE ---
Update Note
Progress Note Update
Chronically ill appearing, does not understand why he is in diabetic ketoacidosis
Temporal wasting atrophic muscles
Scleral Anicteric
MMM
No JVD
CTABL
RRR, S1/S2
Soft, NT, ND, BS+
Warm, Dry
AAO
DKA
Insulin drip
Accu-Cheks
BMPs Q6 for gap
Once gap closed x 2 can transition from IV insulin drip to subcutaneous long and short acting insulin
Once sugars below 250 begin D5 half NS with K supplementation of 28 mEq
A1c 18.3
AMBER
Likely prerenal etiology
Provide IV fluids
Failure to thrive
Encourage p.o. intake when able to tolerate diet
Provide ensures 3 times daily
TBI�history
I spoke with his earlier today.
Tells me that she is unable to care for him she is currently sick and on disability. States he does not eat only drinks fluids sodas juices
States that her house is safe she is not scared for her life
Once he is ready for discharge she would like him in place
[2025-01-21 16:38] LABS: Blood Urea Nitrogen 31 mg/dl (9-20); Estimated Creatinine Clearance 59 ml/min; Glucose 159 mg/dl (70-99); Sodium 137 mmol/L (135-145); eGFR > 60.00
[2025-01-21 16:39] LABS: Calcium 9.0 mg/dl (8.4-10.2); Carbon Dioxide 22 mmol/L (22-30); Chloride 108 mmol/L (98-107); Potassium 3.9 mmol/L (3.5-5.1)
--- NOTE | 2025-01-21 16:41 | W.PN.UPDATE ---
Update Note
Progress Note Update
Reevaluated patient
No new complaints and hemodynamically stable
Anion gap closing
Appreciate diabetic nurse practitioner input
If able to be weaned off insulin drip then discontinue IV fluids and transfer out of ICU-log feeder will sign off-please call pulmonary if respiratory issues arise
[2025-01-21] MEDS: NOVOLOG MIX 70/30 FLEXPEN 22 UNITS SC (17:08)
[2025-01-21 17:12] LABS: Glucose - Point of Care 185 mg/dl (70-99)
--- NOTE | 2025-01-21 18:01 | PTCARENOTE ---
Pt's son Shaka Aly and other son were at the bedside and verbalized how their mother has health issues of her own and he can no longer be cared for by their mother. As far as Alfonso goes, he does not care for their father at home and does
not communicate to the other siblings when there are health issues at home with either parent or when their father is hospitalized. The requested to have information on medical POA, hospice if he is eligible and facilities he would be able to go to
upon discharge. They expressed their concern for their parent's wellbeing and that his mother is in no physical shape t care for their father as evidenced by his declining status in the last several months, and extreme weight loss. They also stated
he sleeps all day and is up all night, roaming the house and falling. Pt told me he currently drives, however he has not driven in a long time and that his car was sold. Supportive care provided.
--- NOTE | 2025-01-21 18:08 | PTCARENOTE ---
IVF and Insulin drips discontinued. He ate his dinner. Is conversant with his family members. Forgetful and keeps asking for salt, forgetting he has a seasoning packet already on his food. Safe environment maintained.
--- NOTE | 2025-01-21 20:00 | PTCARENOTE ---
Received patient AAOx2, thought it was 2025. Patient forgetful but redirectable. NS 60s-80s, BP stable, normothermic, no edema. Weak pedal pulses b/l. 98% on room air, lung sounds diminished in the bases. Positive bowel sounds, no BM. No urine
output, bladder scanned for 341 mls. Nicotine patch on TONEY. Foams on heels, sacrum, and left hip. PIVs patent, WNL. Patient removed right hand PIV. Call grover within reach, repositioned.
[2025-01-21 21:40] LABS: Glucose - Point of Care 204 mg/dl (70-99)
--- NOTE | 2025-01-21 22:00 | PTCARENOTE ---
Report given to RN on , transferred without any issues.
[2025-01-22] VITALS (9 sets, daily range): BP systolic 93–139; BP diastolic 42–72; PULSE 80; O2SAT 100; BMI 17.9
--- NOTE | 2025-01-22 04:25 | FALL ---
Description of Fall:
Pt bed alarm going off, RN ran into the room and found patient on the floor by the foot of the bed. Pt was on his L side, no loss of consciousness, and only oriented to self as per baseline. VSS. CANDLEMAKER notified and up to the floor to see pt- no new
orders. No injuries noted. Pt denies pain and had full ROM in LLE and LUE. Pt had fall wrist band, bed alarm, fall magnet in place, and non-skid socks.
Injuries Noted:
No injuries noted
Name of Provider Notified: Luisa Fung
--- NOTE | 2025-01-22 05:00 | W.PN.UPDATE ---
Update Note
Progress Note Update
[id number] Notified by Rn that pt fell.
Bed alarm went off and before nurses able to reach room pt fell. Did not hit head. Landed on left hip. Denies injury. Was able to get up with assist and pivot to recliner. Denies pain. Able to raise leg without pain.
vital signs stable
[2025-01-22 07:40] LABS: Glucose - Point of Care 473 mg/dl (70-99)
[2025-01-22 07:49] LABS: Hematocrit 33.6 % (39.0-52.0); Hemoglobin 12.0 g/dL (13.0-18.0); Mean Corp Hgb Conc. 35.7 g/dL (33.0-37.0); Mean Corpuscular Volume 83.6 fL (80.0-94.0); Platelet Count 236 10^3/uL (130-400); Red Cell Dist. Width 12.7 % (11.5-14.5)
[2025-01-22 08:18] LABS: Blood Urea Nitrogen 28 mg/dl (9-20); Calcium 9.0 mg/dl (8.4-10.2); Carbon Dioxide 20 mmol/L (22-30); Chloride 106 mmol/L (98-107); Estimated Creatinine Clearance 61 ml/min; Glucose 470 mg/dl (70-99); Potassium 4.4 mmol/L (3.5-5.1); Sodium 132 mmol/L (135-145); eGFR > 60.00
--- NOTE | 2025-01-22 08:25 | PN.DE.MGMTRT ---
Insulin Management
- -
01/22/2025 Diabetes Management Consult Follow up
Patient admitted 01/21 via ambulance from home s/p fall. Found to be in DKA with glucose 435, GAP 23. PMH dementia, diabetes, bladder CA, HTN, urinary retention. Patient know to me from prior admissions. Prior to admission was ordered 70/30
insulin 22 units BID. A1C 11/12 15.6%, repeat ordered. cr .9, eGFR >60.
01/21 Transitioned to subcutaneous regimen: 70/30 22 units @ dinner, insulin infusion off 1 hour later.
01/22 Early this AM patient had a fall, found out of bed on the floor, no injuries noted. Fasting glucose 473. Patient received 6 units corrective insulin. 70/30 increased to 24 units BID.
Talked with patient who is clearly confused, regarding home medications. He states never took insulin, his never got it so he never took it. I have worked with him on previous admissions and he is UNABLE to self administer insulin safely. I
have talked with his who has stated: 'he is too much for me, I work and cannot give him insulin'.
At patients previous admission he was unable to prepare and inject insulin himself. I am not sure if family is helping him at home or he is just not receiving the insulin as evidenced by A1C going up from 15.6% in October to now 18.3%.
Discussed with nurse.
Will follow
Diabetes History
- -
Type of Diabetes: 2 requiring insulin
Pre-Admission Diabetes Regimen
01/21/25 01/21/25 01/21/25
08:13 10:15 12:11
Creatinine 1.0 Cancelled 0.9
01/21/25 01/21/25 01/22/25
15:50 20:00 07:25
Creatinine 0.8 Cancelled 0.8
Lab Results
Hemoglobin A1c 18.3 % (4.0-5.6) H 01/21/25 12:11
Insulin Pump Settings
IP Diabetes Regimen
01/21/25 01/21/25 01/21/25
08:13 08:13 08:48
Glucose 299 H Cancelled
POC Glucose 239 H
01/21/25 01/21/25 01/21/25
09:55 10:15 10:58
Glucose Cancelled
POC Glucose 178 H 151 H
01/21/25 01/21/25 01/21/25
12:01 12:11 13:03
Glucose 111 H
POC Glucose 117 H 147 H
01/21/25 01/21/25 01/21/25
14:00 15:07 15:50
Glucose 159 H
POC Glucose 188 H 281 H
01/21/25 01/21/25 01/21/25
15:52 17:00 20:00
Glucose Cancelled
POC Glucose 168 H 185 H
01/21/25 01/22/25 01/22/25
21:29 07:25 07:39
Glucose 470 H*
POC Glucose 204 H 473 H*
Meal type: Dinner
Amount consumed: 100%
Patient Education
[2025-01-22 08:47] LABS: Glucose 486 mg/dl (70-99)
[2025-01-22] MEDS: DIFLUCAN 200 MG PO (08:50)
[2025-01-22] MEDS: HEPARIN 5000 UNITS SC ×2 (08:51→20:35)
[2025-01-22] MEDS: NOVOLOG FLEXPEN-LOW RESISTANCE 6 UNITS SC (08:54)
[2025-01-22] MEDS: NICODERM TRANSDERMAL TRANSDERM (09:02)
[2025-01-22] MEDS: 0.45%NACL 1000 IV ×3 (09:40→23:50)
[2025-01-22] MEDS: NOVOLOG MIX 70/30 FLEXPEN 24 UNITS SC (09:44)
[2025-01-22] MEDS: NOVOLOG MIX 70/30 FLEXPEN SC ×2 (09:51→17:57)
[2025-01-22 12:22] LABS: Glucose - Point of Care 209 mg/dl (70-99)
--- NOTE | 2025-01-22 13:20 | W.PN.HOSP.TC ---
Today's Communication/Plan
-
Assessment / Plan
Assessment / Plan
Chronically ill appearing, does not understand why he is in diabetic ketoacidosis
Temporal wasting atrophic muscles
Scleral Anicteric
MMM
No JVD
CTABL
RRR, S1/S2
Soft, NT, ND, BS+
Warm, Dry
AAO
DKA 0 resolved.
Uncontrolled type 2 DM c/b dementia and inability to self adminster insulin with who is disabled and cannot care for him
Accucehcks
70/30 insulin ordered by diabetes team
ccdiet
IVF to help clear glucose
additional insulin sc needed to decrease bg level
AMBER
Likely prerenal etiology
Provide IV fluids
Failure to thrive
Encourage p.o. intake when able to tolerate diet
Provide ensures 3 times daily
TBI�history
I spoke with his earlier today.
Tells me that she is unable to care for him she is currently sick and on disability. States he does not eat only drinks fluids sodas juices
States that her house is safe she is not scared for her life
Once he is ready for discharge she would like him in place
Anticipated Discharge: > 48 hours
Subjective/Interval History
-
Date of Service: January 22, 2025
seen and examined. no new complaints. no aucte ovenright events
Objective Data
-
Labs:
Laboratory Results
01/22/25 01/22/25
07:25 08:07
WBC 9.2
Hgb 12.0 L
Hct 33.6 L
Plt Count 236 D
Sodium 132 L
Potassium 4.4
Chloride 106
Carbon Dioxide 20 L
BUN 28 H
Creatinine 0.8
Glucose 470 H* 486 H*
Calcium 9.0
Vital Signs:
Vital Signs
Temp Pulse Resp BP Pulse Ox
97.5 F 83 18 109/68 100
01/22/25 11:00 01/22/25 11:00 01/22/25 11:00 01/22/25 11:00 01/22/25 11:00
I&O
01/21/25 01/22/25 01/23/25
06:59 06:59 06:59
Intake Total 2561.0 / 2561.0 240 / 240
Output Total 1300 / 1300 600 / 600
Balance 1261.0 / 1261.0 -360 / -360
[2025-01-22] MEDS: MIRALAX 17 GRAMS PO (13:29)
[2025-01-22] MEDS: NOVOLOG FLEXPEN-LOW RESISTANCE 2 UNITS SC (13:29)
--- NOTE | 2025-01-22 15:56 | PN.CDI ---
CDI
- -
CDI:
Physician Documentation Request
Admit Date: 01/21/25 06:43
Dear Doctor,
Please review the following and provide your response in the progress notes.
Clinical Indicators:
01/21 RN Noted in wound panel: stage 2 left hip pressure injury and unstageable sacral pressure injury.
Physician documentation of the type and location of wounds is required for compliant documentation. Based on the above clinical findings and your assessment, please provide the following in your progress note:
1. Location of the ulcer/wound, including laterality.
2. Type (etiology) of ulcer/wound:
Left hip pressure injury and sacral pressure injury POA
Left hip and sacral non-pressure injury POA
Other
Use of terms such as suspected, likely, concern for, or probable (associated with a specific diagnosis that is being evaluated, monitored, or treated as if it exists) are acceptable and can be coded in the inpatient setting, when documented at the
time of discharge.
Thank you,
Hedy Coelho RN, BSN
CDI Specialist
[facility]
Please use your independent medical judgment in providing your response.
*Source: National Pressure Ulcer Advisory Panel (NPUAP)
--- NOTE | 2025-01-22 16:03 | PN.CDI ---
CDI
- -
CDI:
Physician Documentation Request
Admit Date: 01/21/25 06:43
Dear Doctor,
Please review the following and provide your response in the progress notes.
Clinical Indicators:
Pt admitted with DKA, AMBER and Failure to thrive.
01/21 Registered Dietitian: '
Patient unavailable during RD rounds. states the patient has not been eating or drinking well.
Current BW: (01/21) 116 lbs 9.992 oz BMI: 17.2 (underweight). Weight history (08/20/24) 145 lbs. This is a 20% BW loss over 5 months (significant)
Patient meets AND and ASPEN criteria for severe protein calorie malnutrition of chronic disease due to more than 20% of BW lost over 5 months and less than 75% of estimated nutrition needs met for more than 1 month.
Based on the above information and your assessment, which of the following most accurately represents the patient's nutritional status?
Severe Protein Calorie Malnutrition
Other (please specify)
[facility] Criteria (ACP Hospitalist 2017)
2 or more criteria must be present for either
non severe or severe malnutrition
Note that the criteria differs related to the
presence of an acute or chronic illness
Chronic Illness
Energy Intake Non Severe: <75% for >1 month
Severe: <75% for >1 month
Weight Loss Non Severe: 5% over 1 month
7.5% over 3 months
10% over 6 months
20% over 1 year
Severe: >5% over 1 month
>7.5% over 3 months
>10% over 6 months
>20% over 1 year
Body Fat Non Severe: Mild Loss
Severe: Severe Loss
Muscle Mass Non Severe: Mild Loss
Severe: Severe Loss
Additional criteria that can be used to Determine if Mild or Moderate Malnutrition (Merck Manual 2018)
Use of terms such as suspected, likely, concern for, or probable (associated with a specific diagnosis that is being evaluated, monitored, or treated as if it exists) are acceptable and can be coded in the inpatient setting, when documented at the
time of discharge.
Thank you,
Hedy Coelho RN, BSN
CDI Specialist
[facility]
Please use your independent medical judgment in providing your response.
[2025-01-22 16:42] LABS: Glucose - Point of Care 91 mg/dl (70-99)
--- NOTE | 2025-01-22 16:45 | CM ---
PT OT indicate need for SNF at dc.
Spoke with oldest son Ace [phone] Reviewed PT OT with him .
SON requested SNF placed in care port for [facility].
PLAN Locate accepting SNF
[2025-01-22] MEDS: NOVOLOG FLEXPEN-LOW RESISTANCE SC (16:48)
[2025-01-22 17:55] LABS: Glucose - Point of Care 79 mg/dl (70-99)
--- NOTE | 2025-01-22 18:01 | PTCARENOTE ---
Pt had a controlled decent with Pt. Patint hit his r knee on an IV pole. No injury noted. aware.
[2025-01-22] MEDS: DULCOLAX 5 MG PO (20:35)
[2025-01-22 21:09] LABS: Glucose - Point of Care 207 mg/dl (70-99)
[2025-01-23] VITALS (7 sets, daily range): BP systolic 115–141; BP diastolic 65–78; BMI 18.3
[2025-01-23] MEDS: HALDOL 1 MG IV (01:24)
[2025-01-23 07:50] LABS: Glucose - Point of Care 333 mg/dl (70-99)
[2025-01-23] MEDS: DIFLUCAN 200 MG PO (07:52)
[2025-01-23] MEDS: HEPARIN 5000 UNITS SC ×2 (07:52→20:34)
[2025-01-23] MEDS: DULCOLAX 5 MG PO ×2 (07:52→20:34)
[2025-01-23] MEDS: NICODERM TRANSDERMAL 21 MG TRANSDERM (07:53)
[2025-01-23] MEDS: MIRALAX 17 GRAMS PO (07:53)
--- NOTE | 2025-01-23 07:56 | PN.DE.MGMTRT ---
Insulin Management
- -
01/23/2025 Diabetes Management Consult Follow up
Patient admitted 01/21 via ambulance from home s/p fall. Found to be in DKA with glucose 435, GAP 23. PMH dementia, diabetes, bladder CA, HTN, urinary retention. Patient know to me from prior admissions. Prior to admission was ordered 70/30
insulin 22 units BID. A1C 11/12 15.6%, repeat ordered. cr .9, eGFR >60.
01/21 Transitioned to subcutaneous regimen: 70/30 22 units @ dinner, insulin infusion off 1 hour later.
01/22 Early this AM patient had a fall, found out of bed on the floor, no injuries noted. Fasting glucose 473. Patient received 6 units corrective insulin. 70/30 increased to 24 units BID. Glucose pre dinner 79, NO 70/ 30 insulin given, HS
glucose 207.
01/23 Fasting glucose 333. To resume 70/30 insulin 24 units BID with low corrective insulin AC.
Talked with patient who is clearly confused, regarding home medications. He states never took insulin, his never got it so he never took it. I have worked with him on previous admissions and he is UNABLE to self administer insulin safely. I
have talked with his who has stated: 'he is too much for me, I work and cannot give him insulin'.
At patients previous admission he was unable to prepare and inject insulin himself. I am not sure if family is helping him at home or he is just not receiving the insulin as evidenced by A1C going up from 15.6% in October to now 18.3%.
Discussed with nurse.
Will follow
Diabetes History
- -
Type of Diabetes: 2 requiring insulin
Pre-Admission Diabetes Regimen
01/22/25
07:
Creatinine 0.8
Lab Results
Hemoglobin A1c 18.3 % (4.0-5.6) H 01/21/25 12:11
Insulin Pump Settings
IP Diabetes Regimen
01/22/25 01/22/25 01/22/25
07:25 08:07 12:21
Glucose 470 H* 486 H*
POC Glucose 209 H
01/22/25 01/22/25 01/22/25
16:41 17:52 21:07
Glucose
POC Glucose 91 79 207 H
01/23/25
07:48
Glucose
POC Glucose 333 H
Meal type: Dinner
Meal type: Lunch
Meal type: Breakfast
Amount consumed: 100%
Amount consumed: 75%
Amount consumed: 100%
Patient Education
[2025-01-23] MEDS: NOVOLOG FLEXPEN-LOW RESISTANCE 4 UNITS SC ×2 (08:03→17:19)
[2025-01-23] MEDS: NOVOLOG MIX 70/30 FLEXPEN 24 UNITS SC ×2 (08:06→17:20)
[2025-01-23] MEDS: 0.45%NACL 1000 IV ×2 (09:06→16:01)
[2025-01-23 11:27] LABS: Glucose - Point of Care 261 mg/dl (70-99)
[2025-01-23] MEDS: NOVOLOG FLEXPEN-LOW RESISTANCE 3 UNITS SC (13:00)
[2025-01-23] MEDS: TYLENOL 650 MG PO (14:17)
--- NOTE | 2025-01-23 14:33 | W.PN.HOSP.TC ---
Today's Communication/Plan
-
Assessment / Plan
Assessment / Plan
Chronically ill appearing, does not understand why he is in diabetic ketoacidosis
Temporal wasting atrophic muscles
Scleral Anicteric
MMM
No JVD
CTABL
RRR, S1/S2
Soft, NT, ND, BS+
Warm, Dry
AAO
DKA 0 resolved.
Uncontrolled type 2 DM c/b dementia and inability to self adminster insulin with who is disabled and cannot care for him
Accucehcks
70/30 insulin ordered by diabetes team
ccdiet
IVF to help clear glucose
additional insulin sc needed to decrease bg level
AMBER
Likely prerenal etiology
Provide IV fluids
Failure to thrive
Encourage p.o. intake when able to tolerate diet
Provide ensures 3 times daily
TBI�history
I spoke with his earlier today.
Tells me that she is unable to care for him she is currently sick and on disability. States he does not eat only drinks fluids sodas juices
States that her house is safe she is not scared for her life
Once he is ready for discharge she would like him in place
Anticipated Discharge: > 48 hours
Subjective/Interval History
-
Date of Service: January 23, 2025
Seen and examined. No new complaints. No acute overnight events.
Objective Data
-
Vital Signs:
Vital Signs
Temp Pulse Resp BP Pulse Ox
98.1 F 87 16 134/78 97
01/23/25 11:07 01/23/25 11:07 01/23/25 11:07 01/23/25 11:07 01/23/25 11:07
I&O
01/22/25 01/23/25 01/24/25
06:59 06:59 06:59
Intake Total 2561.0 / 2561.0 600 / 600
Output Total 1300 / 1300 3025 / 3025
Balance 1261.0 / 1261.0 -2425 / -2425
[2025-01-23] MEDS: DULCOLAX 10 MG RECTAL (15:36)
[2025-01-23 16:11] LABS: Glucose - Point of Care 318 mg/dl (70-99)
--- NOTE | 2025-01-23 16:55 | CM ---
Pt is currently on 1:1 . He has fallen x2.
PT OT indicated SNF .Son Ace provided SNF picks.
[facility] Monday if off 1:1 24 to 48 hours.
PLAN To [facility] Monday if off 1:1.
[2025-01-23 21:05] LABS: Glucose - Point of Care 206 mg/dl (70-99)
[2025-01-24 03:02] LABS: Glucose - Point of Care 183 mg/dl (70-99)
[2025-01-24 03:18] VITALS: BP 131/70
[2025-01-24 05:25] VITALS: BMI 18.2
[2025-01-24 07:14] VITALS: BP 138/80
[2025-01-24 07:47] LABS: Glucose - Point of Care 235 mg/dl (70-99)
[2025-01-24] MEDS: NOVOLOG FLEXPEN-LOW RESISTANCE 2 UNITS SC ×2 (08:59→12:22)
[2025-01-24] MEDS: DULCOLAX 5 MG PO (09:00)
[2025-01-24] MEDS: MIRALAX 17 GRAMS PO (09:00)
[2025-01-24] MEDS: NICODERM TRANSDERMAL 21 MG TRANSDERM (09:00)
[2025-01-24] MEDS: DIFLUCAN 200 MG PO (09:00)
[2025-01-24] MEDS: HEPARIN 5000 UNITS SC ×2 (09:00→19:35)
[2025-01-24] MEDS: NOVOLOG MIX 70/30 FLEXPEN 24 UNITS SC (09:01)
--- NOTE | 2025-01-24 11:00 | PTCARENOTE ---
Pt ambulated to the bathroom with assistance of PCT and became dizzy. HR 140's on telemetry. Pt assisted to sit in wheelchair and transferred back to bed. Upon return to bed HR recovered to 90-100's quickly. Dr. David Aguirre made aware.
[2025-01-24 11:36] LABS: Glucose - Point of Care 238 mg/dl (70-99)
[2025-01-24 12:05] VITALS: BP 90/52; BP 97/51; BP 97/53; PULSE 110; PULSE 87; PULSE 93
--- NOTE | 2025-01-24 14:03 | W.PN.HOSP.TC ---
Today's Communication/Plan
-
Assessment / Plan
Assessment / Plan
Chronically ill appearing, does not understand why he is in diabetic ketoacidosis
Temporal wasting atrophic muscles
Scleral Anicteric
MMM
No JVD
CTABL
RRR, S1/S2
Soft, NT, ND, BS+
Warm, Dry
AAO
DKA 0 resolved.
Uncontrolled type 2 DM c/b dementia and inability to self administer insulin with who is disabled and cannot care for him
Accucehcks
70/30 insulin ordered by diabetes team, increase to 26 units
ccdiet
Dizziness
Blood pressure on the lower end
Avoid antihypertensives
IV fluids to initiate
AMBER
Resolved
Failure to thrive
Encourage p.o. intake when able to tolerate diet
Provide ensures 3 times daily
TBI�history
Per his
Tells me that she is unable to care for him she is currently sick and on disability. States he does not eat only drinks fluids sodas juices
States that her house is safe she is not scared for her life
Once he is ready for discharge she would like him in place
Anticipated Discharge: 24 - 48 hours
Subjective/Interval History
-
Date of Service: January 24, 2025
seen and examind. No new complaints. No acute overnight events. However when walking to the bathroom this morning became dizzy.
Objective Data
-
Vital Signs:
Vital Signs
Temp Pulse Resp BP Pulse Ox
98.2 F 90 18 138/80 95
01/24/25 12:05 01/24/25 07:14 01/24/25 12:05 01/24/25 07:14 01/24/25 12:05
I&O
01/23/25 01/24/25 01/25/25
06:59 06:59 06:59
Intake Total 600 / 600 2099 / 2099 240 / 240
Output Total 3025 / 3025 2425 / 2425 400 / 400
Balance -2425 / -2425 -325 / -325 -160 / -160
[2025-01-24 15:25] VITALS: BP 102/61
[2025-01-24] MEDS: NSS 1000 IV (15:25)
[2025-01-24 16:58] LABS: Glucose - Point of Care 196 mg/dl (70-99)
[2025-01-24] MEDS: NOVOLOG FLEXPEN-LOW RESISTANCE 1 UNITS SC (17:35)
[2025-01-24] MEDS: NOVOLOG MIX 70/30 FLEXPEN 26 UNITS SC (17:36)
[2025-01-24 19:35] VITALS: BP 93/48
[2025-01-24] MEDS: DULCOLAX PO (19:35)
[2025-01-24 21:29] LABS: Glucose - Point of Care 191 mg/dl (70-99)
[2025-01-24 23:15] VITALS: BP 122/64
[2025-01-25] MEDS: NSS 1000 IV ×2 (03:20→16:27)
[2025-01-25 03:24] VITALS: BP 113/71
[2025-01-25 06:00] VITALS: BMI 17.9
[2025-01-25 07:11] VITALS: BP 130/92
[2025-01-25 07:21] LABS: Glucose - Point of Care 170 mg/dl (70-99)
[2025-01-25] MEDS: NOVOLOG FLEXPEN-LOW RESISTANCE 1 UNITS SC ×2 (08:48→12:17)
[2025-01-25] MEDS: NICODERM TRANSDERMAL 21 MG TRANSDERM (08:48)
[2025-01-25] MEDS: DIFLUCAN 200 MG PO (08:48)
[2025-01-25] MEDS: DULCOLAX PO ×2 (08:49→18:59)
[2025-01-25] MEDS: NOVOLOG MIX 70/30 FLEXPEN 26 UNITS SC ×2 (08:49→17:00)
[2025-01-25] MEDS: MIRALAX PO (08:49)
[2025-01-25] MEDS: HEPARIN 5000 UNITS SC ×2 (08:50→20:52)
--- NOTE | 2025-01-25 09:23 | W.PN.HOSP.TC ---
Addendum entered and electronically signed by Shad Aguirre MD 01/25/25 12:50:
Left hip pressure injury and sacral pressure injury POA
Severe Protein Calorie Malnutrition
Original Note:
Today's Communication/Plan
-
Assessment / Plan
Assessment / Plan
Chronically ill appearing, does not understand why he is in diabetic ketoacidosis
Temporal wasting atrophic muscles
Scleral Anicteric
MMM
No JVD
CTABL
RRR, S1/S2
Soft, NT, ND, BS+
Warm, Dry
AAO
DKA 0 resolved.
Uncontrolled type 2 DM c/b dementia and inability to self administer insulin with who is disabled and cannot care for him
Accucehcks
70/30 insulin ordered by diabetes team, increase to 26 units
ccdiet
Dizziness
Resolved
Urinary retention
Requiring straight cath
Previous admission had a White but pulled it out
With his level of dementia would like to avoid placing a white
AMBER
Resolved
Failure to thrive
Encourage p.o. intake when able to tolerate diet
Provide ensures 3 times daily
TBI�history
Per his
Tells me that she is unable to care for him she is currently sick and on disability. States he does not eat only drinks fluids sodas juices
States that her house is safe she is not scared for her life
Med cleared for DC, pending placement
Anticipated Discharge: > 48 hours
Subjective/Interval History
-
Date of Service: January 25, 2025
seen and exmained
feeling better
no dizziness
Objective Data
-
Labs:
Laboratory Results
01/25/25
09:12
Sodium Pending
Potassium Pending
Chloride Pending
Carbon Dioxide Pending
BUN Pending
Creatinine Pending
Glucose Pending
Calcium Pending
Vital Signs:
Vital Signs
Temp Pulse Resp BP Pulse Ox
98.0 F 118 18 130/92 99
01/25/25 07:11 01/25/25 07:11 01/25/25 07:11 01/25/25 07:11 01/25/25 07:11
I&O
01/24/25 01/25/25 01/26/25
06:59 06:59 06:59
Intake Total 2099 / 2099 1481 / 1481
Output Total 2425 / 2425 850 / 850
Balance -325 / -325 631 / 631
[2025-01-25 09:47] LABS: Blood Urea Nitrogen 20 mg/dl (9-20); Calcium 8.6 mg/dl (8.4-10.2); Carbon Dioxide 29 mmol/L (22-30); Chloride 107 mmol/L (98-107); Estimated Creatinine Clearance 70 ml/min; Glucose 283 mg/dl (70-99); Potassium 4.1 mmol/L (3.5-5.1); Sodium 136 mmol/L (135-145); eGFR > 60.00
[2025-01-25] MEDS: FLOMAX 0.4 MG PO (09:53)
[2025-01-25 11:00] VITALS: BP 114/59
[2025-01-25 11:51] LABS: Glucose - Point of Care 165 mg/dl (70-99)
[2025-01-25 14:59] VITALS: BP 123/63
--- NOTE | 2025-01-25 15:10 | PTCARENOTE ---
Pt. off 1:1 observation as of 1499. Pt. resting in bed, call grover within reach.
[2025-01-25 16:44] LABS: Glucose - Point of Care 144 mg/dl (70-99)
[2025-01-25] MEDS: NOVOLOG FLEXPEN-LOW RESISTANCE SC (16:53)
[2025-01-25 19:01] VITALS: BP 91/46
[2025-01-25 20:56] LABS: Glucose - Point of Care 81 mg/dl (70-99)
[2025-01-25 22:58] VITALS: BP 111/56
[2025-01-26 02:28] LABS: Glucose - Point of Care 92 mg/dl (70-99)
[2025-01-26 03:02] VITALS: BP 115/71
[2025-01-26 06:00] VITALS: BMI 18.8
[2025-01-26 07:23] LABS: Glucose - Point of Care 263 mg/dl (70-99)
[2025-01-26 07:44] VITALS: BP 118/66
[2025-01-26] MEDS: HEPARIN 5000 UNITS SC ×2 (08:09→21:22)
[2025-01-26] MEDS: DULCOLAX PO ×2 (08:09→19:20)
[2025-01-26] MEDS: FLOMAX 0.4 MG PO (08:10)
[2025-01-26] MEDS: MIRALAX PO (08:10)
[2025-01-26] MEDS: NOVOLOG MIX 70/30 FLEXPEN 26 UNITS SC ×2 (08:10→17:01)
[2025-01-26] MEDS: NOVOLOG FLEXPEN-LOW RESISTANCE 3 UNITS SC (08:10)
[2025-01-26] MEDS: NICODERM TRANSDERMAL 21 MG TRANSDERM (08:19)
[2025-01-26 11:05] VITALS: BP 102/61
[2025-01-26 11:52] LABS: Glucose - Point of Care 198 mg/dl (70-99)
[2025-01-26] MEDS: NOVOLOG FLEXPEN-LOW RESISTANCE 1 UNITS SC (11:59)
--- NOTE | 2025-01-26 12:41 | W.PN.URO.CBU ---
Today's Communication / Plan
-
try and leave white out no cic but if sdistened pain by 8pm insert white
Assessment / Plan
-
keep white ut if possible but if no void or distention by 8pm insert 18 fr white with 30cc balloon
Diagnosis
-
Date of Service: January 26, 2025
-
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
Post Op Day:
Subjective
-
pleasantly unaware that he cannot void
Objective
-
Vital Signs
Temp Pulse Resp BP Pulse Ox
97.7 F 86 18 102/61 100
01/26/25 11:05 01/26/25 11:05 01/26/25 11:05 01/26/25 11:05 01/26/25 11:05
Intake and Output
01/25/25 01/26/25 01/27/25
06:59 06:59 06:59
Intake Total 1481 / 1481 1340 / 1340 840 / 840
Output Total 850 / 850 3365 / 3365 450 / 450
Balance 631 / 631 -2024 / 390 / 390
Intake:
Oral fluids 240 / 240 380 / 380 840 / 840
IV fluids (Total) 1241 / 1241 960 / 960
Output:
Urine, White 1200 / 1200
Urine, Voided 465 / 465
Straight cath output 850 / 850 1700 / 1700 450 / 450
Other:
Number of approximated SMALL 1
amounts of urine
Laboratory Results
01/22/25 07:25
01/25/25 09:12
Review of Systems
-
: Difficulty Voiding
Physical Exam
-
General - well developed, well nourished, no acute distress
Chest - clear bilaterally
Abdomen - soft, non-tender, positive bowel sounds, no CVAT, no incisional pain or distention
Genitalia - normalcircumcised but non reteactile
Rectal - normal
Skin - warm & dry with no rash
Neuro - AOx3, no motor deficits
Extremities - no clubbing, no cyanosis, no edema
Incision - clean, dry
Dressing - clean, dry, intact
Care Review
Data Reviewed
Discussed with: Hospitalist and Nursing
[2025-01-26 14:57] VITALS: BP 98/56
--- NOTE | 2025-01-26 15:01 | PTCARENOTE ---
Dr. Aguirre made aware pt. had 4 brief episodes of tachycardia with HR 130-160, while sitting on side of bed and laying in bed resting. EKG sent to Dr. Aguirre, pt. asymptomatic. Pt. HR 80s-90s now while resting in bed. No new orders at this time.
--- NOTE | 2025-01-26 15:57 | W.PN.HOSP.TC ---
Today's Communication/Plan
-
needs to remain off of 1:1 in order to dc to [facility]
cardiology consulted oor intermittent tachycardia at rest with rates into the 150-160's
Assessment / Plan
Assessment / Plan
Chronically ill appearing, does not understand why he is in diabetic ketoacidosis
Temporal wasting atrophic muscles
Scleral Anicteric
MMM
No JVD
CTABL
RRR, S1/S2
Soft, NT, ND, BS+
Warm, Dry
AAO
DKA 0 resolved.
Uncontrolled type 2 DM c/b dementia and inability to self administer insulin with who is disabled and cannot care for him
Accucehcks
70/30 insulin ordered by diabetes team, increase to 26 units
ccdiet
Dizziness
Resolved
Urinary retention
Requiring straight cath
Previous admission had a White but pulled it out
With his level of dementia would like to avoid placing a white
AMBER
Resolved
Failure to thrive
Encourage p.o. intake when able to tolerate diet
Provide ensures 3 times daily
TBI�history
Per his
Tells me that she is unable to care for him she is currently sick and on disability. States he does not eat only drinks fluids sodas juices
States that her house is safe she is not scared for her life
Med cleared for DC, pending placement
Anticipated Discharge: 24 - 48 hours
Subjective/Interval History
-
Date of Service: January 26, 2025
seen and exmained. no new complaints. no acute ovnerihg evcents
Objective Data
-
Vital Signs:
Vital Signs
Temp Pulse Resp BP Pulse Ox
98.7 F 98 18 98/56 95
01/26/25 14:57 01/26/25 14:57 01/26/25 14:57 01/26/25 14:57 01/26/25 14:57
I&O
01/25/25 01/26/25 01/27/25
06:59 06:59 06:59
Intake Total 1481 / 1481 1340 / 1340 840 / 840
Output Total 850 / 850 3365 / 3365 450 / 450
Balance 631 / 631 -2024 / -2024 390 / 390
[2025-01-26 16:37] LABS: Glucose - Point of Care 144 mg/dl (70-99)
[2025-01-26] MEDS: NOVOLOG FLEXPEN-LOW RESISTANCE SC (16:43)
[2025-01-26 18:53] VITALS: BP 93/46
[2025-01-26 21:33] LABS: Glucose - Point of Care 61 mg/dl (70-99)
--- NOTE | 2025-01-26 21:45 | PTCARENOTE ---
Pts HR 80-90s, frequently going up to 120-140s but not sustaining, quickly goes back down to 80s. BP 93/46. Pt agitated, anxious, unsuccessfully attempting to place white catheter, bladder scan with >711. House CLINIC ADMINISTRATOR aware. Plan of care is ongoing.
--- NOTE | 2025-01-26 21:50 | PTCARENOTE ---
2149: Call placed to Dr. Aguilera, order to place 14 khmer white, able to place. Order to inflate balloon with 20 cc NSS. Pt drained 600 mls clear yellow urine.
2129: Attempted to place [address] Aguilera's, unable to advance.
2015: Pt bladder scanned for >711, with no urine output. Attempted to place 18 khmer catheter per order, unable to advance. House WHISKEY REGAUGER notified, order to notify urology.
[2025-01-26 22:05] LABS: Glucose - Point of Care 100 mg/dl (70-99)
[2025-01-26 23:14] VITALS: BP 98/61
[2025-01-27] VITALS (8 sets, daily range): BP systolic 97–118; BP diastolic 46–67; PULSE 95; O2SAT 97; BMI 18.6
[2025-01-27 00:14] LABS: Glucose - Point of Care 156 mg/dl (70-99)
[2025-01-27 03:10] LABS: Glucose - Point of Care 70 mg/dl (70-99)
[2025-01-27 05:47] LABS: Glucose - Point of Care 121 mg/dl (70-99)
[2025-01-27 07:19] LABS: Glucose - Point of Care 134 mg/dl (70-99)
[2025-01-27] MEDS: NOVOLOG FLEXPEN-LOW RESISTANCE SC ×3 (07:39→16:46)
--- NOTE | 2025-01-27 07:44 | PN.DE.MGMTRT ---
Insulin Management
- -
01/27/2025: Diabetes Management Follow up
Patient admitted 01/21 via ambulance from home s/p fall. Found to be in DKA with glucose 435, GAP 23. PMH: Dementia, T2DM, Bladder CA, HTN, urinary retention. Patient know to me from prior admissions. Prior to admission was ordered 70/30 insulin 22
units BID. A1C 11/12 15.6%, now 18.3%. Cr 0.9, eGFR >60.
01/21 Transitioned to subcutaneous regimen: 70/30 22 units bid. 01/22 FBG 473. 70/30 increased to 24 units BID.
Patient is asleep not disturbed, unable to discuss diabetes care plan.
01/26 Premeal range 144 to 198. HS glucose 61, improved after treatment to 156, down again to 70@ 3AM.
Will reduce PM dose to 24 units and cont AM dose of 26 units with low corrective insulin AC.
Will cont to follow and further adjust insulin if necessary. Discussed with nurse.
01/22 Talked with patient who is clearly confused, regarding home medications. He states never took insulin, his never got it so he never took it. I have worked with him on previous admissions and he is UNABLE to self administer insulin safely.
I have talked with his who has stated: 'he is too much for me, I work and cannot give him insulin'.
At patients previous admission he was unable to prepare and inject insulin himself. I am not sure if family is helping him at home or he is just not receiving the insulin as evidenced by A1C going up from 15.6% in October to now 18.3%.
Diabetes History
- -
Type of Diabetes: 2 requiring insulin
Pre-Admission Diabetes Regimen
Lab Results
Hemoglobin A1c 18.3 % (4.0-5.6) H 01/21/25 12:11
Insulin Pump Settings
IP Diabetes Regimen
01/26/25 01/26/25 01/26/25
11:51 16:36 21:32
POC Glucose 198 H 144 H 61 L
01/26/25 01/27/25 01/27/25
22:04 00:12 03:07
POC Glucose 100 H 156 H 70
01/27/25 01/27/25
05:45 07:15
POC Glucose 121 H 134 H
Meal type: Dinner
Meal type: Lunch
Meal type: Breakfast
Meal type: Breakfast
Amount consumed: 100%
Amount consumed: 100%
Amount consumed: 100%
Amount consumed: 100%
Patient Education
[2025-01-27] MEDS: NICODERM TRANSDERMAL 21 MG TRANSDERM (08:54)
[2025-01-27] MEDS: DULCOLAX PO ×2 (08:54→21:28)
[2025-01-27] MEDS: HEPARIN 5000 UNITS SC ×2 (08:54→21:29)
[2025-01-27] MEDS: FLOMAX 0.4 MG PO (08:54)
[2025-01-27] MEDS: MIRALAX PO (08:54)
[2025-01-27] MEDS: NOVOLOG MIX 70/30 FLEXPEN 26 UNITS SC (09:03)
--- NOTE | 2025-01-27 10:20 | CM ---
Spoke with Jodee Zamorano awaiting response if pt is accepted.
Requested updated PT OT .
Will need updated care port.
IMM emailed to son Ace as requested to [email or web address]
PLAN To Snf after located
--- NOTE | 2025-01-27 10:47 | W.PN.URO.CBU ---
Today's Communication / Plan
-
keep white teach if piossible white and leg bag care
Assessment / Plan
-
keep white needs vn consut possibt nhp as i question if can manage with white
Diagnosis
-
Date of Service: January 27, 2025
-
Patient Diagnosis:
Post Op Day:
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
Post Op Day:
Subjective
-
could not void
Objective
-
Vital Signs
Temp Pulse Resp BP Pulse Ox
98.7 F 83 16 101/46 96
01/27/25 07:26 01/27/25 07:26 01/27/25 07:26 01/27/25 07:26 01/27/25 07:26
Intake and Output
01/26/25 01/27/25 01/28/25
06:59 06:59 06:59
Intake Total 1340 / 1340 1560 / 1560
Output Total 3365 / 3365 1725 / 1725
Balance -2024 / -2024 -165 / -165
Intake:
Oral fluids 380 / 380 1560 / 1560
IV fluids (Total) 960 / 960
Output:
Urine, White 1200 / 1200 1275 / 1275
Urine, Voided 465 / 465
Straight cath output 1700 / 1700 450 / 450
Other:
Number of approximated SMALL 1
amounts of urine
Laboratory Results
01/22/25 07:25
01/25/25 09:12
Review of Systems
-
: Difficulty Voiding
Physical Exam
-
General - well developed, well nourished, no acute distress
Chest - clear bilaterally
Abdomen - soft, non-tender, positive bowel sounds, no CVAT, no incisional pain or distention
Genitalia - normal
Rectal - normal
Skin - warm & dry with no rash
Neuro - AOx3, no motor deficits
Extremities - no clubbing, no cyanosis, no edema
Incision - clean, dry
Dressing - clean, dry, intact
Counseling
-
t/c nhp or vn
--- NOTE | 2025-01-27 10:58 | W.PN.HOSP.TC ---
Today's Communication/Plan
-
Cardiology consult
Assessment / Plan
Assessment / Plan
Gen-awake, alert, NAD, not completely oriented
HEENT-NC, AT, anicteric, clear oral mm
Neck-supple
CV-reg, no M, +S1/S2
Lungs-clear B/L
Abd-soft, NT, ND
Ext-no edema
Musculoskeletal-no cyanosis, clubbing
Skin-warm and dry
Neuro-grossly non-focal
Psych-calm, cooperative
DM2 with DKA -DKA resolved. Diabetes being managed by diabetes DIETITIAN HELPER. Currently on NovoLog Mix 70/30, 26 units in the a.m., 24 units in the afternoon.
Hemoglobin A1c 18.3%. Glucose this morning ranging between 70 and 134.
Dizziness
Resolved
Urinary retention -acute versus chronic.
Henderson catheter inserted yesterday. Outpatient follow-up with urology.
AMEBR
Resolved
Tachycardia -has had runs of intermittent SVT on the monitor. Cardiology consulted. Asymptomatic. TSH 1.16.
Hyperkalemia -POA, resolved.
Failure to thrive
Encourage p.o. intake when able to tolerate diet
Provide ensures 3 times daily
TBI�history
History of dementia -unknown type.
Dispo -awaiting SNF placement when cleared by cardiology. Patient's can no longer care for him.
Anticipated Discharge: Within 24 hours
Subjective/Interval History
-
Date of Service: January 27, 2025
Patient seen and examined. No complaints.
Objective Data
-
Vital Signs:
Vital Signs
Temp Pulse Resp BP Pulse Ox
98.7 F 83 16 101/46 96
01/27/25 07:26 01/27/25 07:26 01/27/25 07:26 01/27/25 07:26 01/27/25 07:26
I&O
01/26/25 01/27/25 01/28/25
06:59 06:59 06:59
Intake Total 1340 / 1340 1560 / 1560
Output Total 3365 / 3365 1725 / 1725
Balance -2024 / -2024 -165 / -165
Review of Systems
-
History Source: Patient
All other systems: Reviewed and negative
--- NOTE | 2025-01-27 11:43 | CON.CAR ---
Addendum entered and electronically signed by Alexandr Shi MD 01/27/25 12:37:
I saw and examined the patient.
The FULL STACK PHP DEVELOPER or PA's note was reviewed and I agree with the note.
Comment: General: Well developed, well nourished in NAD.
Neck: Supple, no JVD, HJR, carotids +2 B/L, no bruits bilaterally.
Heart: Non displaced PMI, RRR, no murmurs, No S3, S4, no rubs.
Lungs: Clear to auscultation bilaterally, no wheeze, rhonchi, rubs bilaterally,
normal expiratory phase.
Extremities: No clubbing, cyanosis or edema bilaterally.
Neuro: Grossly nonfocal, awake, alert and oriented x3.
Mert's history of diabetes, traumatic brain injury, hypertension, bladder cancer, tobacco abuse. He was admitted with frequent falls and failure to thrive as well as DKA. Hemoglobin A1c was 18.3%. Cardiology was consulted for tachycardia on
telemetry. He denies any chest pain, short of breath, or palpitations.
Review of telemetry reveals brief episodes of atrial tachycardia. We discussed possibly starting beta-harpreet but will hold off for now given hypotension and frequent falls. No further treatment needed.
Original Note:
Consultation
Consultation Request
Date/Time Consultation Requested: 01/27/2025
Date/Time Consultation Performed: 01/27/2025
Requesting Provider: Dr. Aguirre
Performing Provider: Lashay Pearson PA-C for Dr. Shi
Reason for Consultation: Intermittent tachycardia
Medical History
-
History of Present Illness:
HPI: Mert is a 74 year old male with PMH of type II DM, prior TBI, hypertension, bladder cancer, and tobacco abuse. Presented to [facility] ER on 01/21/2025 for evaluation of frequent falls and failure to thrive. He was admitted with DKA. Glucose on
arrival was 435. He was started on IV fluids and insulin has been improving, however has had additional falls while hospitalized and was briefly on 1:1. Hemoglobin A1c returned at 18.3%. DKA on arrival was likely related to patient's inability to
self administer insulin given underlying TBI and dementia. Cardiology consulted due to intermittent runs of tachycardia noted on telemetry. He is asymptomatic with this. He denies any chest pain, palpitations, dizziness, lightheadedness, lower
extremity edema, or shortness of breath. He denies any syncope or near syncope with his falls. Blood pressure has been on the lower side of normal with intermittent hypotension noted. K stable this admission. TSH within normal limits at 1.16.
Overall HR well controlled. He denies any history of tachycardia or arrhythmia.
PMH:
DM2
h/o TBI
HTN
h/o bladder cancer
Tobacco abuse
Past Medical History
Past Medical History: Other (In HPI)
Past Surgical History: Other (Salivary gland excision, TURBT)
Social History
Tobacco: Smoker
Alcohol: Occasional
Drug: None
Personal:
Living: With Family
Family History
Family History: Reviewed & Not Pertinent
Allergies / Home Medications
Allergy/AdvReac Type Severity Reaction Status Date / Time
aspirin Allergy Rash Verified 11/12/24 13:44
Penicillins Allergy Rash Verified 11/12/24 13:44
�Medication �Instructions �Recorded �Confirmed �Type
metformin 1,000 mg tablet 1,000 mg PO BID@0800,1700 Diabetes 11/11/24 01/21/25 Rx
#60 tabs
insulin aspar prot-insulin aspart 22 unit SC BID Diabetes 01/21/25 01/21/25 History
100 unit/mL (70-30) subcutaneous
pen
Review of Systems
-
History Source: Patient
All other systems: Negative unless noted
Physical Exam
Vital Signs
Temp Pulse Resp BP Pulse Ox
98.2 F 87 16 112/60 98
01/27/25 11:18 01/27/25 11:18 01/27/25 11:18 01/27/25 11:18 01/27/25 11:18
Lab Results
01/22/25 07:25
01/25/25 09:12
Physical Exam
General: No Apparent Distress
HEENT: Normocephalic, Anicteric and Moist Mucous Membranes
Respiratory: Clear and Non Labored Respirations
Cardiac: S1/S2 and Regular Rhythm
Musculoskeletal: No Clubbing, No Cyanosis and No Edema
Skin: Warm and Dry
Neuro: Awake, Alert and Nonfocal/Grossly Intact
Psych: Calm
Impression / Plan
-
PCP: Dr. Zhong
Voice Over Announcer: None prior to arrival, initially seen by Dr. Shi
Impression:
Presented with failure to thrive
Recurrent falls
Paroxysmal atrial tachycardia
Frequent PACs
DM2 w/ DKA on arrival
h/o TBI
HTN
h/o bladder cancer
Tobacco abuse
Plan:
-Presented with frequent falls, failure to thrive. Admitted with DKA. Cardiology consulted due to intermittent paroxysmal atrial tachycardia.
-Head CT without acute intracranial abnormalities, CXR negative.
-Continue insulin. Hgb A1c 18.3%. Management per DM FULL STACK PHP DEVELOPER.
-Intermittent, brief runs of paroxysmal atrial tachycardia noted on review of telemetry. Asymptomatic
-EKG reviewed, SR with frequent PACs noted.
-K stable at 4.1. TSH wnl at 1.16.
-Could consider use of low dose metoprolol tartrate, however given hypotension w/ frequent falls, will hold off.
-Plan is for SNF at discharge
-Will arrange cardiology follow up.
HPI: Mert is a 74 year old male with PMH of type II DM, prior TBI, hypertension, bladder cancer, and tobacco abuse. Presented to [facility] ER on 01/21/2025 for evaluation of frequent falls and failure to thrive. He was admitted with DKA. Glucose on
arrival was 435. He was started on IV fluids and insulin has been improving, however has had additional falls while hospitalized and was briefly on 1:1. Hemoglobin A1c returned at 18.3%. DKA on arrival was likely related to patient's inability to
self administer insulin given underlying TBI and dementia. Cardiology consulted due to intermittent runs of tachycardia noted on telemetry. He is asymptomatic with this. He denies any chest pain, palpitations, dizziness, lightheadedness, lower
extremity edema, or shortness of breath. He denies any syncope or near syncope with his falls. Blood pressure has been on the lower side of normal with intermittent hypotension noted. K stable this admission. TSH within normal limits at 1.16.
Overall HR well controlled. He denies any history of tachycardia or arrhythmia.
Data Reviewed
-
EKG: Tracing Personally Visualized and interpreted
Radiology: Report Reviewed by me
CT Scan: Report Reviewed by me
Labs: Labs Reviewed by me
Old Records: Reviewed
[2025-01-27 11:55] LABS: Glucose - Point of Care 111 mg/dl (70-99)
[2025-01-27 16:45] LABS: Glucose - Point of Care 137 mg/dl (70-99)
[2025-01-27] MEDS: NOVOLOG MIX 70/30 FLEXPEN 24 UNITS SC (17:41)
[2025-01-27 21:31] LABS: Glucose - Point of Care 220 mg/dl (70-99)
[2025-01-28 03:33] VITALS: BP 93/55
--- NOTE | 2025-01-28 04:48 | PTCARENOTE ---
Patient constantly asking for food throughout the night, stating he is 'starving' and 'will pass out' if he doesn't get more food. Patient given a boxed lunch and multiple packs of crackers throughout the night. After eating, patient reports not
remembering receiving any food and continues to ask for more. HS blood sugar 220. Patient continuing to yell out despite education senior functional analyst grover use. Multiple attempts to reinforce importance of keeping blood sugar under control. Patient stating if
he does not get food, he will sign himself out AMA. Sugar free jello offered, patient refused. DRY COLOR MIXER made aware, no new orders at this time. Plan of care ongoing.
[2025-01-28 06:00] VITALS: BMI 19.3
[2025-01-28 07:25] LABS: Glucose - Point of Care 285 mg/dl (70-99)
--- NOTE | 2025-01-28 07:38 | PN.DE.MGMTRT ---
Insulin Management
- -
01/28/2025: Diabetes Management Follow up
Patient admitted 01/21 via ambulance from home s/p fall. Found to be in DKA with glucose 435, GAP 23. PMH: Dementia, T2DM, Bladder CA, HTN, urinary retention. Patient know to me from prior admissions. Prior to admission was ordered 70/30 insulin 22
units BID. A1C 11/12 15.6%, now 18.3%. Cr 0.9, eGFR >60.
01/21 Transitioned to subcutaneous regimen: 70/30 22 units bid. 01/22 FBG 473. 70/30 increased to 24 units BID.
Patient is asleep not disturbed, unable to discuss diabetes care plan.
01/27 Glucose range 111 to 137. After dinner patient demanding additional food, states he is starving. He was given multiple packs of crackers and a full boxed lunch. HS glucose 220.
01/28 Fasting glucose 285. Due to excess intake after dinner will make no change to current regimen 70/30 26 units in AM and 24 units with dinner. Recommend offering sugar free alternatives if patient is c/o starving in the evening. Nursing
reports patient is constantly demanding food, given peanut butter and crackers, cookies this AM. Pre lunch glucose 277.
Will cont to follow and further adjust insulin if necessary. Discussed with nurse.
01/22 Talked with patient who is clearly confused, regarding home medications. He states never took insulin, his never got it so he never took it. I have worked with him on previous admissions and he is UNABLE to self administer insulin safely.
I have talked with his who has stated: 'he is too much for me, I work and cannot give him insulin'.
At patients previous admission he was unable to prepare and inject insulin himself. I am not sure if family is helping him at home or he is just not receiving the insulin as evidenced by A1C going up from 15.6% in October to now 18.3%.
Diabetes History
- -
Type of Diabetes: 2 requiring insulin
Pre-Admission Diabetes Regimen
Lab Results
Hemoglobin A1c 18.3 % (4.0-5.6) H 01/21/25 12:11
Insulin Pump Settings
IP Diabetes Regimen
01/27/25 01/27/25 01/27/25
11:54 16:43 21:30
POC Glucose 111 H 137 H 220 H
01/28/25
07:14
POC Glucose 285 H
Meal type: Lunch
Meal type: Breakfast
Amount consumed: 100%
Amount consumed: 100%
Patient Education
[2025-01-28 07:40] VITALS: BP 95/56
[2025-01-28] MEDS: FLOMAX 0.4 MG PO (08:17)
[2025-01-28] MEDS: DULCOLAX 5 MG PO (08:18)
[2025-01-28] MEDS: NICODERM TRANSDERMAL 21 MG TRANSDERM (08:18)
[2025-01-28] MEDS: HEPARIN 5000 UNITS SC (08:18)
[2025-01-28] MEDS: MIRALAX 17 GRAMS PO (08:18)
[2025-01-28] MEDS: NOVOLOG FLEXPEN-LOW RESISTANCE 3 UNITS SC ×2 (08:18→11:40)
[2025-01-28] MEDS: NOVOLOG MIX 70/30 FLEXPEN 26 UNITS SC (08:20)
--- NOTE | 2025-01-28 09:46 | W.PN.HOSP.TC ---
Today's Communication/Plan
-
Discharge planning
Assessment / Plan
Assessment / Plan
Gen-awake, alert, NAD, not completely oriented
HEENT-NC, AT, anicteric, clear oral mm
Neck-supple
CV-reg, no M, +S1/S2
Lungs-clear B/L
Abd-soft, NT, ND
Ext-no edema
Musculoskeletal-no cyanosis, clubbing
Skin-warm and dry
Neuro-grossly non-focal
Psych-calm, cooperative
DM2 with DKA -DKA resolved. Diabetes being managed by diabetes RIDING TEACHER. Currently on NovoLog Mix 70/30, 26 units in the a.m., 24 units in the afternoon.
Hemoglobin A1c 18.3%. Glucose 285 this morning. Diabetes RIDING TEACHER following.
Dizziness
Resolved
Urinary retention -acute versus chronic.
Henderson catheter inserted 01/26. Outpatient follow-up with urology.
AMBER
Resolved
Tachycardia -has had runs of intermittent SVT on the monitor. Patient asymptomatic. Cardiology consulted, recommend conservative management given relative hypotension. TSH 1.16.
Hyperkalemia -POA, resolved.
Failure to thrive
Encourage p.o. intake when able to tolerate diet
Provide ensures 3 times daily
TBI�history
History of dementia -unknown type.
Dispo -medically stable for discharge to SNF. Case management aware. Patient's can no longer care for him.
Anticipated Discharge: Within 24 hours
Subjective/Interval History
-
Date of Service: January 28, 2025
Patient seen and examined. No complaints.
Objective Data
-
Vital Signs:
Vital Signs
Temp Pulse Resp BP Pulse Ox
98.1 F 90 18 95/56 97
01/28/25 07:40 01/28/25 07:40 01/28/25 07:40 01/28/25 07:40 01/28/25 07:40
I&O
01/27/25 01/28/25 01/29/25
06:59 06:59 06:59
Intake Total 1560 / 1560 840 / 840
Output Total 1725 / 1725 1000 / 1000
Balance -165 / -165 -160 / -160
Review of Systems
-
History Source: Patient
All other systems: Reviewed and negative
--- NOTE | 2025-01-28 10:02 | PTCARENOTE ---
Patient is constantly asking for food even after eating his meal. Patient ate 100% of his breakfast. Patient was given peanut butter with crackers and diet marquita ursula. Patient care is ongoing.
--- NOTE | 2025-01-28 10:22 | W.PN.CARDCBS ---
Today's Communication / Plan
-
No further workup needed for brief PAT
Will sign off
Impression / Plan
-
PCP: Dr. Zhong
Oceanologist: None prior to arrival, initially seen by Dr. Shi
Impression:
Presented with failure to thrive
Recurrent falls
Paroxysmal atrial tachycardia
Frequent PACs
DM2 w/ DKA on arrival
h/o TBI
HTN
h/o bladder cancer
Tobacco abuse
Plan:
tele with brief PAT.
no further workup needed.
will sign off, call with questions
HPI: Mert is a 74 year old male with PMH of type II DM, prior TBI, hypertension, bladder cancer, and tobacco abuse. Presented to [facility] ER on 01/21/2025 for evaluation of frequent falls and failure to thrive. He was admitted with DKA. Glucose on
arrival was 435. He was started on IV fluids and insulin has been improving, however has had additional falls while hospitalized and was briefly on 1:1. Hemoglobin A1c returned at 18.3%. DKA on arrival was likely related to patient's inability to
self administer insulin given underlying TBI and dementia. Cardiology consulted due to intermittent runs of tachycardia noted on telemetry. He is asymptomatic with this. He denies any chest pain, palpitations, dizziness, lightheadedness, lower
extremity edema, or shortness of breath. He denies any syncope or near syncope with his falls. Blood pressure has been on the lower side of normal with intermittent hypotension noted. K stable this admission. TSH within normal limits at 1.16.
Overall HR well controlled. He denies any history of tachycardia or arrhythmia.
Progress Note - Oceanologist
Subjective
Date of Service: January 28, 2025
No complaints
Objective
Labs:
01/22/25 07:25
01/25/25 09:12
Labs
Hgb 12.0 g/dL (13.0-18.0) L 01/22/25 07:25
Hct 33.6 % (39.0-52.0) L 01/22/25 07:25
Plt Count 236 10^3/uL (130-400) D 01/22/25 07:25
PT 13.5 Sec (11.4-14.6) 01/21/25 02:36
INR 1.00 01/21/25 02:36
APTT 32.6 Sec (23.4-35.0) 01/21/25 02:36
Sodium 136 mmol/L (135-145) 01/25/25 09:12
Potassium 4.1 mmol/L (3.5-5.1) 01/25/25 09:12
BUN 20 mg/dl (9-20) 01/25/25 09:12
Creatinine 0.7 mg/dL (0.7-1.3) 01/25/25 09:12
Glucose 283 mg/dl (70-99) H 01/25/25 09:12
Vital Signs and I&O:
Vital Signs
Temp Pulse Resp BP Pulse Ox
98.1 F 90 18 95/56 97
01/28/25 07:40 01/28/25 07:40 01/28/25 07:40 01/28/25 07:40 01/28/25 07:40
Vital Signs
Temp Pulse Resp BP Pulse Ox
98.1 F 90 18 95/56 97
01/28/25 07:40 01/28/25 07:40 01/28/25 07:40 01/28/25 07:40 01/28/25 07:40
Intake & Output
01/26/25 01/27/25 01/28/25 01/29/25
06:59 06:59 06:59 06:59
Intake Total 1340 / 1340 1560 / 1560 840 / 840
Output Total 3365 / 3365 1725 / 1725 1000 / 1000
Balance -2025 / -2025 -165 / -165 -160 / -160
Physical Exam
Physical Exam
General: Well developed, well nourished in NAD.
.
[2025-01-28 11:35] LABS: Glucose - Point of Care 277 mg/dl (70-99)
--- NOTE | 2025-01-28 13:00 | CM ---
Addendum entered by Sylwia [facility] 01/28/25 15:19:
1800 pickup now, SNF aware
[facility] 13:10:
1630 pickup
Original Note:
CM reviewed pt with Dr Lyon
Pt off 1:1 for past two days but denied at [facility] due to impulsivity
Bed offered to [facility]- call with son and he is in agreement
Medical necessity completed
TT/Dr Lyon who will provide PRN med order for behaviors on dc per SNF request
IMM provided to son day prior
Discharge Disposition- [facility] via ambulance
Phone- [phone] Fax- [phone]
--- NOTE | 2025-01-28 13:02 | W.DS.TRANS ---
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
-
Discharge Instructions:
Discharge Diagnosis/Procedures Diabetic ketoacidosis, acute urinary retention,
acute kidney injury
Diet Diabetic, Carb Controlled
Activity With assistance
Driving Restrictions No driving
Bathing Restrictions None
Instructions:
Stand-Alone Forms:
Changes to Home Medications: No
Discharge Medications:
DC Medications w/original date entered in [employer]
bisacodyl 5 mg tablet,delayed release 5 mg PO BID #0 tabs 01/28/25
insulin aspar prot-insulin aspart 100 unit/mL (70-30) subcutaneous pen 24 unit (0.24 mL) SC DAILY@1700 #0 mL 01/28/25
insulin aspar prot-insulin aspart 100 unit/mL (70-30) subcutaneous pen 26 unit (0.26 mL) SC DAILY@0800 #0 mL 01/28/25
nicotine 21 mg/24 hr daily transdermal patch 21 mg transdermal DAILY #0 ea 01/28/25
olanzapine 2.5 mg tablet 2.5 mg PO DAILY PRN agitation #7 tabs 01/28/25
polyethylene glycol 3350 17 gram oral powder packet 17 g PO DAILY #0 ea 01/28/25
tamsulosin 0.4 mg capsule 0.4 mg PO DAILY #0 caps 01/28/25
Home Medication Changes
Pending Results: No
[2025-01-28 15:44] VITALS: BP 110/51
== END 2025-01-28 16:33 | DRG 682 ==
LOC: 4 EAST ACU 06:43
PROVIDERS: Hospitalist; ADMITTING PHYSICIAN Hospitalist; ATTENDING PHYSICIAN Hospitalist; CONSULT PHYSICIAN Internal Medicine Cardiovascular Disease; CONSULT PHYSICIAN Internal Medicine Critical Care Medicine; CONSULT PHYSICIAN Specialist; EMERGENCY PHYSICIAN Emergency Medicine; FAMILY PHYSICIAN Family Medicine
DX: N17.9 Acute kidney failure, unspecified (principal); E11.10 Type 2 diabetes mellitus with ketoacidosis without coma; E43 Unspecified severe protein-calorie malnutrition; R47.01 Aphasia; R64 Cachexia; Z68.1 Body mass index [BMI] 19.9 or less, adult; R62.7 Adult failure to thrive; E87.5 Hyperkalemia; F03.90 Unspecified dementia, unspecified severity, without behavioral disturbance, psychotic disturbance, mood disturbance, and anxiety; Z85.51 Personal history of malignant neoplasm of bladder; Z87.820 Personal history of traumatic brain injury; I10 Essential (primary) hypertension; R29.6 Repeated falls; Z88.0 Allergy status to penicillin; Z88.6 Allergy status to analgesic agent; F91.9 Conduct disorder, unspecified; F17.210 Nicotine dependence, cigarettes, uncomplicated; N40.0 Benign prostatic hyperplasia without lower urinary tract symptoms; Z71.6 Tobacco abuse counseling; Z79.4 Long term (current) use of insulin; Z79.84 Long term (current) use of oral hypoglycemic drugs; Z87.440 Personal history of urinary (tract) infections; Z91.148 Patient's other noncompliance with medication regimen for other reason; L89.222 Pressure ulcer of left hip, stage 2; L89.150 Pressure ulcer of sacral region, unstageable
CPT/HCPCS: 70450; 71045; 80048; 80053; 81003; 81015; 82010; 82800; 82947; 82962; 83036; 83735; 84100; 84443; 85025; 85027; 85610; 85730; 86803; 87086; 93005; 96365; 96366; 97116; 97163; 97167; 97530; 97535; 99285

== ENCOUNTER 2025-02-08 14:37 | Inpatient (IN) | payer MEDICARE, SELFPAY ==
[2025-02-08] VITALS (9 sets, daily range): BP systolic 104–136; BP diastolic 43–78; BMI 23.0; BMI 20.2
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
[2025-02-08 11:06] LABS: Hematocrit 28.1 % (39.0-52.0); Hemoglobin 9.3 g/dL (13.0-18.0); Mean Corp Hgb Conc. 33.1 g/dL (33.0-37.0); Mean Corpuscular Volume 91.2 fL (80.0-94.0); Nucleated Red Blood Cells % 0 % (-); Platelet Count 260 10^3/uL (130-400); Red Cell Dist. Width 13.4 % (11.5-14.5); Urine Character Clear (Clear)
[2025-02-08 11:19] LABS: ALT (SGPT) 12 U/L (0-50); AST (SGOT) 19 U/L (17-59); Albumin 2.9 g/dl (3.5-5.0); Alkaline Phosphatase 112 U/L (38-126); Blood Urea Nitrogen 20 mg/dl (9-20); Calcium 8.4 mg/dl (8.4-10.2); Carbon Dioxide 30 mmol/L (22-30); Chloride 100 mmol/L (98-107); Glucose 395 mg/dl (70-99); Potassium 4.7 mmol/L (3.5-5.1); Sodium 131 mmol/L (135-145); Total Protein 5.8 g/dl (6.3-8.2); eGFR > 60.00
[2025-02-08] MEDS: NSS 1000 IV (11:39)
--- NOTE | 2025-02-08 14:00 | PHANOTE ---
med rec note- spoke to son but he live out of town and does not stay in touch with parents. patient just here and [facility] to [facility] released [facility] 02.07.25 or some time this week. [facility] records at [facility] are closed to get med list.
called Kim(spouse) on file but no answer plus her mail box if not set up to take voice mails
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
[2025-02-08] MEDS: ZYPREXA 2.5 MG PO (14:46)
[2025-02-08] MEDS: RISPERDAL 0.25 MG PO (16:59)
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
[2025-02-08] MEDS: LOVENOX SC (22:02)
[2025-02-08] MEDS: ZYPREXA 5 MG PO (22:07)
[2025-02-08 22:10] LABS: Glucose - Point of Care 524 mg/dl (70-99)
--- NOTE | 2025-02-08 22:10 | PTCARENOTE ---
Patient arrived from ED. Oriented x 3 but forgetful, inpatient and impulsive. VSS. Blood sugar elevated, unable to obtain on accucheck machine. Provider notified. Venous blood glucose ordered per protocol. Awaiting result. Bed alarm in place.
Patient oriented to room. Bed in lowest position. Call grover and personal belongings within reach.
[2025-02-08 23:05] LABS: Glucose 482 mg/dl (70-99)
--- NOTE | 2025-02-08 23:07 | PTCARENOTE ---
Stat venous blood glucose 482. Provider notified. Awaiting orders.
[2025-02-09] MEDS: NOVOLOG MIX 70/30 FLEXPEN 24 UNITS SC (00:17)
[2025-02-09] MEDS: NOVOLOG FLEXPEN-LOW RESISTANCE 6 UNITS SC (00:22)
[2025-02-09 02:39] LABS: Glucose - Point of Care 60 mg/dl (70-99)
[2025-02-09] MEDS: DEXTROSE 50% SYRINGE 12.5 GRAMS IV (02:44)
--- NOTE | 2025-02-09 02:53 | GLUCOSE ---
SITUATION:
Accucheck at 0230, reading 60.
BACKGROUND:
Patient with venous glucose of 482 upon admission. Per orders and in speaking with provider, 24 units 70/30 administered in addition to 6 unit SSI.
ASSESSMENT:
Patient alert. Upon assessment, patient is cold and clammy. Able to tolerate PO juice.
RECOMMENDATION:
4 oz orange juice administered, in addition to PRN IV dextrose.Recheck blood sugar in 15 minutes, per protocol.
[2025-02-09 03:08] LABS: Glucose - Point of Care 113 mg/dl (70-99)
--- NOTE | 2025-02-09 04:13 | PTCARENOTE ---
Unable to complete med reconciliation due to patient's cognitive impairment. Will pass on to receiving RN to contact during day time hours.
[2025-02-09 05:05] LABS: Glucose - Point of Care 55 mg/dl (70-99)
[2025-02-09] MEDS: DEXTROSE 50% SYRINGE 25 GRAMS IV (05:11)
[2025-02-09] MEDS: DEXTROSE 50% SYRINGE IV (05:11)
[2025-02-09 05:34] LABS: Glucose - Point of Care 228 mg/dl (70-99)
[2025-02-09 05:52] VITALS: BMI 20.2
--- NOTE | 2025-02-09 06:20 | PTCARENOTE ---
Per protocol, next accucheck due at 0730 yet, provider wants it completed before change of shift.
[2025-02-09 06:53] LABS: Glucose - Point of Care 138 mg/dl (70-99)
[2025-02-09 07:00] VITALS: BP 97/48
[2025-02-09 07:47] LABS: Hematocrit 28.4 % (39.0-52.0); Hemoglobin 9.5 g/dL (13.0-18.0); Mean Corp Hgb Conc. 33.5 g/dL (33.0-37.0); Mean Corpuscular Volume 89.9 fL (80.0-94.0); Platelet Count 251 10^3/uL (130-400); Red Cell Dist. Width 13.4 % (11.5-14.5)
[2025-02-09 08:11] LABS: Blood Urea Nitrogen 23 mg/dl (9-20); Calcium 8.9 mg/dl (8.4-10.2); Carbon Dioxide 30 mmol/L (22-30); Chloride 104 mmol/L (98-107); Estimated Creatinine Clearance 69 ml/min; Glucose 119 mg/dl (70-99); Potassium 4.1 mmol/L (3.5-5.1); Sodium 135 mmol/L (135-145); eGFR > 60.00
[2025-02-09] MEDS: FLOMAX 0.4 MG PO (08:38)
[2025-02-09] MEDS: NOVOLOG FLEXPEN-LOW RESISTANCE SC (08:38)
[2025-02-09 09:35] LABS: Glucose - Point of Care 174 mg/dl (70-99)
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
[2025-02-09] MEDS: NOVOLOG FLEXPEN-LOW RESISTANCE 1 UNITS SC (12:52)
[2025-02-09 15:00] VITALS: BP 128/66
[2025-02-09 16:56] LABS: Glucose - Point of Care 573 mg/dl (70-99)
[2025-02-09 17:40] LABS: Glucose 568 mg/dl (70-99)
[2025-02-09] MEDS: NOVOLOG FLEXPEN-LOW RESISTANCE 8 UNITS SC (17:53)
[2025-02-09] MEDS: NOVOLOG MIX 70/30 FLEXPEN 15 UNITS SC (17:54)
[2025-02-09] MEDS: NOVOLOG MIX 70/30 FLEXPEN 5 UNITS SC (18:24)
[2025-02-09] MEDS: LOVENOX SC (18:39)
[2025-02-09 21:05] LABS: Glucose - Point of Care 259 mg/dl (70-99)
[2025-02-09] MEDS: ZYPREXA 5 MG PO (21:27)
[2025-02-09] MEDS: ZYPREXA 2.5 MG PO (23:00)
[2025-02-09 23:12] VITALS: BP 102/51
[2025-02-09] MEDS: RISPERDAL M-TAB (ORALLY DISINTEGRATING) 0.25 MG PO (23:36)
--- NOTE | 2025-02-10 01:15 | PTCARENOTE ---
0: Pt forgetful and confused, making continuous attempts to get out of his chair and pulling on Henderson tubing. Pt reminded to stay in chair for his own safety, this RN redirected pt multiple times without success. Pt given scheduled PO zyprexa
5mg HS and PRN zyprexa 2.5mg without benefit. Pt continues to try to get out of his chair, asking to go home, banging on food tray and yelling out to nursing staff. JONATHAN Huang notified of pt's behavior and ordered 1x stat dose of
risperdal 0.25mg. Pt continuing to try to get up and leave the nurse's station by himself, attempting to unsafely raise himself out of his recliner, continuing to bang on food tray aggressively. JONATHAN Farmer notified of continued behaviors and order
placed for Estee chair at 0107 on 02/10. Will continue to monitor for any changes in pt's behavior.
[2025-02-10 04:19] LABS: Glucose - Point of Care 168 mg/dl (70-99)
[2025-02-10 07:31] VITALS: BP 104/43
[2025-02-10 08:05] LABS: Glucose - Point of Care 285 mg/dl (70-99)
[2025-02-10] MEDS: FLOMAX 0.4 MG PO (08:19)
[2025-02-10] MEDS: NOVOLOG FLEXPEN-LOW RESISTANCE 3 UNITS SC (08:19)
[2025-02-10 12:11] LABS: Glucose - Point of Care 229 mg/dl (70-99)
[2025-02-10] MEDS: NOVOLOG FLEXPEN-LOW RESISTANCE 2 UNITS SC (12:25)
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
[2025-02-10] MEDS: TYLENOL 650 MG PO (13:56)
[2025-02-10] MEDS: ZYPREXA 2.5 MG PO (14:11)
--- NOTE | 2025-02-10 14:23 | W.PN.UPDATE ---
Update Note
Progress Note Update
Pt seen, chart reviewed. Pt sitting in chair, drowsy/dozing off. Med-sitter reports pt ate breakfast today, has not been agitated. Pt disoriented, unable to provide information. Was able to state 's name 'Kim,' that he is from [place]. No EPS
evident on Zyprexa at HS for agitation. Urinary catheter in place.
Imp: Dementia with agitation; History TBI
Rec: continue current management, Zyprexa. Will follow
[2025-02-10 15:16] VITALS: BP 125/105
[2025-02-10 16:40] LABS: Glucose - Point of Care 430 mg/dl (70-99)
[2025-02-10 17:34] LABS: Glucose 412 mg/dl (70-99)
[2025-02-10] MEDS: NOVOLOG FLEXPEN-LOW RESISTANCE 6 UNITS SC (17:44)
[2025-02-10] MEDS: NOVOLOG MIX 70/30 FLEXPEN 20 UNITS SC (17:45)
[2025-02-10] MEDS: LOVENOX 40 MG SC (17:45)
[2025-02-10 17:53] VITALS: BMI 20.2
[2025-02-10 20:50] LABS: Glucose - Point of Care 301 mg/dl (70-99)
[2025-02-10] MEDS: ZYPREXA 5 MG PO (21:39)
--- NOTE | 2025-02-10 22:30 | PTCARENOTE ---
Pt continues to require 1:1 observation and making attempts to get OOB and leave room. JONATHAN Hyde notified that lexii chair needs to be renewed; JONATHAN Hyde renewed order for Lexii chair restraint.
[2025-02-10 23:00] VITALS: BP 100/49
--- NOTE | 2025-02-11 02:25 | DOWNTIME ---
There was a Mama Client Pleat Taper Downtime on 02/11/2025 from 0100 to 02/11/2025 at 0220. Downtime documentation of patient's care, including medication administrations, has been reconciled in the electronic record per guidelines. Refer to the
patient's paper chart under the miscellaneous tab to see printed paper medication records and downtime forms.
[2025-02-11 06:00] VITALS: BMI 19.8
[2025-02-11 07:15] LABS: Glucose - Point of Care 71 mg/dl (70-99)
[2025-02-11] MEDS: NOVOLOG FLEXPEN-LOW RESISTANCE SC ×3 (07:27→18:01)
[2025-02-11] MEDS: NOVOLOG MIX 70/30 FLEXPEN 15 UNITS SC (07:27)
[2025-02-11] MEDS: FLOMAX 0.4 MG PO (07:28)
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
--- NOTE | 2025-02-11 10:50 | W.PN.UPDATE ---
Update Note
Progress Note Update
Patient seen, spoke with nursing staff. Patient was sleeping when seen, one to one states he has been sleeping since 8am. Nursing staff states there was no recent aggressive behavior, reporting no need to use PRN Zyprexa. Currently being evaluated
for LTC.
Imp: Dementia with agitation; History TBI
Rec: Continue Zyprexa 5mg HS, 2.5mg PRN for agitation. Will follow
[2025-02-11 11:07] VITALS: BP 98/40
[2025-02-11 11:31] LABS: Glucose - Point of Care 117 mg/dl (70-99)
[2025-02-11] MEDS: ZYPREXA 2.5 MG PO (14:43)
[2025-02-11 14:49] LABS: Glucose - Point of Care 118 mg/dl (70-99)
[2025-02-11 15:45] VITALS: BP 120/48
[2025-02-11 16:30] LABS: Glucose - Point of Care 349 mg/dl (70-99)
[2025-02-11] MEDS: LOVENOX 40 MG SC (17:31)
[2025-02-11 17:36] LABS: Glucose - Point of Care 433 mg/dl (70-99)
[2025-02-11] MEDS: NOVOLOG FLEXPEN 8 UNITS SC (17:58)
[2025-02-11] MEDS: NOVOLOG MIX 70/30 FLEXPEN SC (18:01)
[2025-02-11 18:38] LABS: Glucose 422 mg/dl (70-99)
[2025-02-11 20:56] LABS: Glucose - Point of Care 389 mg/dl (70-99)
[2025-02-11 21:55] LABS: Glucose - Point of Care 390 mg/dl (70-99)
[2025-02-11] MEDS: ZYPREXA 5 MG PO (22:14)
[2025-02-11] MEDS: LANTUS 0.12 UNITS SC (22:15)
[2025-02-11 22:40] VITALS: BP 116/44
[2025-02-11] MEDS: TYLENOL 650 MG PO (23:00)
--- NOTE | 2025-02-11 23:00 | PTCARENOTE ---
Addendum entered by Shlomo Finley RN 02/12/25 06:03:
JONATHAN Farmer ordered 4 units of NovoLog for blood sugar of 334 and Monurol packet in water. Crackers and peanut butter provided to pt with insulin administration.
Original Note:
Pt more cooperate during shift but lethargic. Pt back in bed throughout shift, Estee chair not utilized during shift. Pt still confused and AAOx1 to self but more lethargic and sleeping more than previous pit tanner. Temp at 2300 was 101.3F, HR
115, SpO2 89% on RA. Pt placed on 2L O2, now 92% on 2L. PRN PO Tylenol provided to pt. JONATHAN Huang notified. Bcx's and urine culture ordered, portable CXR, CBC, lactic, flu and covid swabs ordered. Pt's temperature at 0100 was 97.5F; pt
more alert but remains confused. Hgb decreased to 7.9 from 9.5, lactic 1.3. No signs of bleeding despite Hgb decrease. Henderson bag changed by this telegraphic typewriter mechanic, Henderson wipes completed by this telegraphic typewriter mechanic, and urine culture collected from Henderson port. Pt's covid
and flu results are both negative. JONATHAN Farmer notified of new lab results.
Pt's blood sugar has remained elevated throughout shift. Blood sugar at 2200 was 390. Lantus 12 units provided at that time. Blood sugar at 0200 was 338; JONATHAN Farmer notified, order placed for 2 units Novolog and provided to pt.
Blood sugar at 0500 was 334 after 2 units Novolog ~ 0300.
--- NOTE | 2025-02-11 23:42 | W.PN.UPDATE ---
Update Note
Progress Note Update
fever with temp 101.3, bp 116/44, hr 115, RR 22, spo2 92% on 2 L of O2.
Patient is confused at baseline and not able to answer question regarding pain/ complain/symptoms
Diminished lung sound on exam,
CBC, lactic, UA, chest x-ray, flu, Covid, and blood culture ordered.
-abnormal ua result received, giving the fever and the patient inability to answer the questions regarding urinary symptoms, one time dose of fosfomycin ordered.
-hgb level dropped down from 9.5 to 7.9, no signs of bleeding, patient had bm during the shift with normal color. Patient is normotensive. Will repeat hgb level in am.
-WBC within normal range, lactic acid is 1.3. Covid & flu are neg.
-Chest x-ray and blood cultures result are pending.
[2025-02-12 00:34] LABS: Hematocrit 23.2 % (39.0-52.0); Hemoglobin 7.9 g/dL (13.0-18.0); Mean Corp Hgb Conc. 34.1 g/dL (33.0-37.0); Mean Corpuscular Volume 88.2 fL (80.0-94.0); Platelet Count 229 10^3/uL (130-400); Red Cell Dist. Width 13.7 % (11.5-14.5)
[2025-02-12 01:08] LABS: COVID-19 Antigen Negative (Negative)
[2025-02-12 01:48] LABS: Urine Character Clear (Clear)
[2025-02-12 01:58] LABS: Urine Squamous Cell None seen /LPF (Few)
[2025-02-12 01:59] LABS: Urine Red Blood Cell 0-2 /HPF (0-2)
[2025-02-12 02:05] LABS: Glucose - Point of Care 338 mg/dl (70-99)
[2025-02-12] MEDS: NOVOLOG FLEXPEN 2 UNITS SC (02:38)
[2025-02-12 05:07] LABS: Glucose - Point of Care 334 mg/dl (70-99)
[2025-02-12] MEDS: NOVOLOG FLEXPEN 4 UNITS SC ×2 (05:50→18:20)
[2025-02-12] MEDS: MONUROL 3 GM PO (05:50)
[2025-02-12 06:00] VITALS: BMI 20.2
[2025-02-12 07:20] LABS: Glucose - Point of Care 295 mg/dl (70-99)
[2025-02-12 08:08] VITALS: BP 121/54
[2025-02-12 08:11] LABS: Hematocrit 25.7 % (39.0-52.0); Hemoglobin 8.5 g/dL (13.0-18.0); Mean Corp Hgb Conc. 33.1 g/dL (33.0-37.0); Mean Corpuscular Volume 89.5 fL (80.0-94.0); Platelet Count 233 10^3/uL (130-400); Red Cell Dist. Width 13.6 % (11.5-14.5)
[2025-02-12 08:32] LABS: Blood Urea Nitrogen 27 mg/dl (9-20); Calcium 7.9 mg/dl (8.4-10.2); Carbon Dioxide 27 mmol/L (22-30); Chloride 102 mmol/L (98-107); Estimated Creatinine Clearance 69 ml/min; Glucose 272 mg/dl (70-99); Potassium 3.9 mmol/L (3.5-5.1); Sodium 132 mmol/L (135-145); eGFR > 60.00
[2025-02-12] MEDS: FLOMAX 0.4 MG PO (09:07)
[2025-02-12] MEDS: TYLENOL 650 MG PO ×2 (09:07→18:10)
[2025-02-12] MEDS: NOVOLOG FLEXPEN-LOW RESISTANCE 3 UNITS SC (09:08)
[2025-02-12] MEDS: NOVOLOG FLEXPEN 8 UNITS SC (09:09)
[2025-02-12 11:28] LABS: Glucose - Point of Care 41 mg/dl (70-99)
[2025-02-12 11:45] LABS: Glucose - Point of Care 61 mg/dl (70-99)
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
[2025-02-12 12:08] LABS: Glucose - Point of Care 71 mg/dl (70-99)
[2025-02-12] MEDS: NOVOLOG FLEXPEN-LOW RESISTANCE SC (12:38)
[2025-02-12] MEDS: NOVOLOG FLEXPEN SC (12:42)
--- NOTE | 2025-02-12 13:24 | W.PN.UPDATE ---
Addendum entered and electronically signed by Bindu Lopez MD 02/12/25 13:35:
dr vargas reordering two view chest xray
Original Note:
Update Note
Progress Note Update
patient seen chart reviewed. patient appears to be improved conpared to yesterday. he was oriented to person place ([facility] ) although thought it was 2025. he initially appeared to be sleeping but woke easily and was fairly alert.
realized lunch had arrived and said he was hungry. he also was not necessarily happy that i had disturbed his nap. i had seen him last spring when he was here. at that time he was able to provide information and carry on a conversation with me.
noted he was febrile in the last 24 hours and chest xray showing a moderate left lower lobe pneumonia. texted dr vargas.could this be the cause of his mental status change? he is currently taking zyprexa 5 mg q hs. . he does have a prn of zyprexa
as well of which he received one yesterday. did ot change psychotropic medication/
[2025-02-12 14:16] LABS: Glucose - Point of Care 114 mg/dl (70-99)
--- NOTE | 2025-02-12 14:49 | CM ---
CM reviewed chart, spoke with patients son, Rishi, discussed [facility]. CM spoke with liaison, Mackenzie, will fax signed DME/ Med Eval forms to [phone]. Patient will require ambulance transport upon discharge.
CM will continue to follow for all discharge planning needs.
Plan; [facility] tomorrow, ambulance transport
[2025-02-12 16:16] VITALS: BP 104/57
[2025-02-12 16:29] LABS: Glucose - Point of Care 241 mg/dl (70-99)
[2025-02-12] MEDS: ZITHROMAX 500 MG PO (18:09)
[2025-02-12] MEDS: LOVENOX 40 MG SC (18:11)
[2025-02-12] MEDS: NOVOLOG FLEXPEN-LOW RESISTANCE 2 UNITS SC (18:20)
[2025-02-12] MEDS: STERILE WATER FOR INJECTION 10 ML IV (18:42)
[2025-02-12] MEDS: ROCEPHIN 1000 MG IV (18:42)
[2025-02-12 20:48] LABS: Glucose - Point of Care 271 mg/dl (70-99)
[2025-02-12] MEDS: LANTUS 0.12 UNITS SC (21:20)
[2025-02-12] MEDS: ZYPREXA 5 MG PO (21:20)
--- NOTE | 2025-02-12 22:20 | PHA.VAN.IN ---
Assessment
- Assessment
Renal Function: Appears similar to baseline
Concomitant Antimicrobials: ROCEPHIN
- Previous Dosing Experience
Previous Regimen: NONE
AUC Dosing Plan
- Dosing Variables
Dosing Weight (kg): 61.9
Dosing CrCl (ml/min): 69
Vd coefficient (L/kg): 0.7
- Empiric Dosing
Initial / Loading Dose: 1500MG
Maintenance Regimen: 750MG IV Q12H
Estimated AUC (mcg*h/mL): 579
Estimated Peak (mcg*h/mL): 33.1
Estimated Trough (mcg/ml): 16.8
Estimated Half Life (H): 11.2
Pharmacokinetics Vancomycin I
- -
Patient Age: 74
Patient Sex: Male
Vancomycin Day #: 1
Indication: Pulmonary/Respiratory
Requesting Provider: RM
Pertinent Antimicrobial Allergies:
Allergies
Penicillins Allergy (Verified 02/08/25 09:45)
Rash
Height / Weight:
Height 5 ft 9 in
Actual Weight 61.915 kg
- Vital Signs / Lab Results
Temp Pulse Resp BP Pulse Ox
99.6 F 101 18 104/57 91
02/12/25 16:16 02/12/25 16:16 02/12/25 16:16 02/12/25 16:16 02/12/25 16:16
Lab Results - Hematology
02/11/25 02/12/25
23:54 07:02
WBC 6.9 8.0
Lab Results - Chemistry
02/12/25
07:02
BUN 27 H
Creatinine 0.8
Estimated Creat Clear 69
02/11/25
23:54
Lactic Acid 1.3
Lab Results - Urine
02/12/25
01:28
Urine Nitrite (Reflex) Negative
Leukocyte Esterase Rfl 1+ A
Urine WBC (Reflex) 6-10
Ur Squamous Epith Cells None seen
Urine Bacteria (Reflex) Moderate A
Microbiology Results
02/12/25 00:44 Blood Culture - Preliminary
Blood/Venous Positive culture in progress
02/12/25 00:35 Influenza Types A & B ([facility]) - Final
Nasal Swab Negative for Influenza A & B, NAAT
Negative results must be combined with clinical observations
and patient history.
Nucleic Acid Amplification test (NAAT)performed on the
[employer] NOW platform.
[2025-02-12 23:12] VITALS: BP 105/54
[2025-02-12] MEDS: ZYPREXA 2.5 MG PO (23:26)
[2025-02-12] MEDS: VANCOCIN 530 MG IV (23:51)
[2025-02-13] MEDS: TYLENOL 650 MG PO ×3 (00:02→21:27)
[2025-02-13] MEDS: ZYPREXA 2.5 MG PO ×3 (01:49→23:31)
--- NOTE | 2025-02-13 02:03 | PTCARENOTE ---
Pt began getting restless in bed and uncooperative, pt transferred to chair per request for comfort. Pt c/o back pain, PRN Tylenol administered. Pt continued to be restless and agitation increased, order for lexii-chair and pt placed in lexii-chair.
Pt continued to be restless, yelling out and banging on lexii-chair table. PRN Zyprexa administered with no effect. Pt continued to yell out, bang on table and became combative with 1:1 staff member, LEGAL DOCUMENT SPECIALIST notified, 0.25mg PO risperdal ordered.
[2025-02-13] MEDS: RISPERDAL M-TAB (ORALLY DISINTEGRATING) 0.25 MG PO (02:22)
--- NOTE | 2025-02-13 04:43 | PTCARENOTE ---
Pt refused 0300 blood sugar check. Pt agitated and yelling out. No s/s of hypoglycemia noted. Pt currently in lexii-chair under supervision.
[2025-02-13] MEDS: VANCOCIN 150 IV (05:25)
[2025-02-13 06:50] VITALS: BP 135/71
[2025-02-13 06:56] LABS: Glucose - Point of Care 156 mg/dl (70-99)
[2025-02-13 08:51] LABS: Hematocrit 26.0 % (39.0-52.0); Hemoglobin 8.4 g/dL (13.0-18.0); Mean Corp Hgb Conc. 32.3 g/dL (33.0-37.0); Mean Corpuscular Volume 91.9 fL (80.0-94.0); Nucleated Red Blood Cells % 0 % (-); Platelet Count 275 10^3/uL (130-400); Red Cell Dist. Width 13.4 % (11.5-14.5)
[2025-02-13] MEDS: ZITHROMAX 500 MG PO (09:00)
[2025-02-13] MEDS: NOVOLOG FLEXPEN-LOW RESISTANCE 1 UNITS SC (09:00)
[2025-02-13] MEDS: NOVOLOG FLEXPEN 4 UNITS SC ×2 (09:00→17:53)
[2025-02-13] MEDS: FLOMAX 0.4 MG PO (09:00)
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
[2025-02-13 10:14] LABS: Total Iron Binding Capacity 202 ug/dl (261-462)
[2025-02-13 10:15] LABS: Reticulocyte Count 1.4 % (0.4-2.8)
[2025-02-13 10:18] LABS: Iron < 20 ug/dl (49-181)
--- NOTE | 2025-02-13 10:55 | CM ---
CM reviewed chart, reviewed with Hospitalist, plan to discharge to [facility] likely tomorrow. DME/Med list faxed to Mackenzie at the [facility] [phone], aware of plan for discharge tomorrow. Updated clinicals faxed to [facility]. PT provided
patient with walker, will need script prior to d/c. CM will continue to follow for all discharge planning needs.
Plan; [facility], likely tomorrow, will need ambulance transport
[2025-02-13 11:38] LABS: Ferritin 344.0 ng/ml (17.9-464.0)
[2025-02-13 12:09] LABS: Glucose - Point of Care 64 mg/dl (70-99)
[2025-02-13 12:10] LABS: Folate 10.7 ng/ml (2.76-20); Vitamin B12 464 pg/ml (239-931)
[2025-02-13] MEDS: NOVOLOG FLEXPEN SC (12:13)
[2025-02-13] MEDS: NOVOLOG FLEXPEN-LOW RESISTANCE SC (12:13)
[2025-02-13 12:32] LABS: Glucose - Point of Care 77 mg/dl (70-99)
--- NOTE | 2025-02-13 12:51 | PTOTSP ---
Dysphagia Evaluation
Patient is at an elevated risk for dysphagia due to TBI and dementia with changes to attention, insight into deficits, and impulsivity. Rapid rate of intake when eating elevates dysphagia/aspiration risk.
Do not recommend modifying diet at this time as smaller pieces may encourage further increase in rate of intake (i.e., less need to chew). Modify environment as appropriate (i.e., offer small amounts of food at a time, reduce distractions).
Patient would likely not be a candidate for instrumental swallowing testing via FEES or Video Swallow Study given behavioral dysfunction/safety risks.
Recommend:
1. IDDSI 7 Regular, Thin liquids
2. Strategies: supervision, slow rate, reduce distractions with meals, liquid wash as needed after dry solids
3. Oral care 3x daily as patient allows
4. Medications: as best tolerated
Will sign off. Please reconsult as appropriate.
[2025-02-13 14:25] LABS: Glucose - Point of Care 273 mg/dl (70-99)
[2025-02-13 14:57] VITALS: BP 130/66
--- NOTE | 2025-02-13 16:28 | W.PN.UPDATE ---
Update Note
Progress Note Update
patient seen chart reviewed. spoke with nursing. although patient did NOT have a good night and has required a lot of monitoring and assistance he was not unpleasant when seen by this magazine writer today. he looked at me when i asked him questions and
generally answered appropriately. (what is your favorite food? what are some occitan foods?) he did not know the year or where he was ([facility] 2021). clinical nursing professor reports he needs major direction for all activities and is at times
quite inappropriate eg when toileting. he had some agitation last evening and has required prn for three nights straight of zyprexa. he did not sleep well at all lasts evening. have ordered meena zydis 2.5 mg at 8pm as well as melatonin 5mg at 8.
will follow.
[2025-02-13 17:31] LABS: Glucose - Point of Care 228 mg/dl (70-99)
[2025-02-13] MEDS: NOVOLOG FLEXPEN-LOW RESISTANCE 2 UNITS SC (17:52)
[2025-02-13] MEDS: ROCEPHIN 1000 MG IV (17:54)
[2025-02-13] MEDS: STERILE WATER FOR INJECTION 10 ML IV (17:55)
[2025-02-13] MEDS: LOVENOX 40 MG SC (17:57)
[2025-02-13 21:20] LABS: Glucose - Point of Care 194 mg/dl (70-99)
[2025-02-13] MEDS: ZYPREXA 5 MG PO (21:23)
[2025-02-13] MEDS: MELATONIN 5 MG PO (21:23)
[2025-02-13] MEDS: ZYPREXA ZYDIS (ORALLY DISINTEGRATING) 2.5 MG PO (21:24)
[2025-02-13] MEDS: LANTUS 0.12 UNITS SC (21:25)
[2025-02-13 23:05] VITALS: BP 100/47
--- NOTE | 2025-02-14 01:33 | PTCARENOTE ---
Pt transferred to 4W. pt belongings with pt. Bed alarm plugged in new room, safety measures in place, call grover within reach. 1:1 supervision continued.
--- NOTE | 2025-02-14 03:06 | W.PN.UPDATE ---
Update Note
Progress Note Update
Code purple called
Patient was trying to get out of the room and was trying to pull the white out. At present patient is calm with the help of staff, no new interventions. 1:1 at the bedside.
--- NOTE | 2025-02-14 04:16 | PTCARENOTE ---
Ptient received on unit to room 338 bed 2 as transfer No acute distress is noted upon arrival. Patient remains on direct observation for safety.
[2025-02-14 04:19] LABS: Glucose - Point of Care 142 mg/dl (70-99)
[2025-02-14 06:00] VITALS: BMI 20.9
[2025-02-14 07:42] VITALS: BP 129/63
[2025-02-14] MEDS: FLOMAX 0.4 MG PO (08:51)
[2025-02-14] MEDS: ZITHROMAX 500 MG PO (08:51)
[2025-02-14 08:58] LABS: Glucose - Point of Care 100 mg/dl (70-99)
[2025-02-14] MEDS: NOVOLOG FLEXPEN-LOW RESISTANCE SC ×2 (08:59→12:38)
--- NOTE | 2025-02-14 09:02 | W.DS.TRANS ---
DC Summary - Intertype Operator
-
Discharge Instructions:
Discharge Diagnosis/Procedures Aspiration pneumonitis, traumatic brain injury,
acute urinary retention, acute on chronic anemia
, dementia
Diet Regular,Other diet
Additional Diets Aspiration precautions
Activity As tolerated
Driving Restrictions No driving
Bathing Restrictions None
Instructions:
Stand-Alone Forms:
Changes to Home Medications: No
Discharge Medications:
DC Medications w/original date entered in [employer]
tamsulosin 0.4 mg capsule 0.4 mg PO DAILY #0 caps 01/28/25
Insulin Glargine Lantus [Lantus] 12 units As Directed mls/hr SC HS 02/13/25
azithromycin 250 mg tablet 500 mg (2 x 250 mg) PO DAILY #0 tabs 02/13/25
cefpodoxime 200 mg tablet 200 mg PO BID #10 tabs 02/13/25
olanzapine 2.5 mg tablet 2.5 mg PO TIDPRN PRN agitation #0 tabs 02/13/25
olanzapine 5 mg tablet 5 mg PO HS #0 tabs 02/13/25
polyethylene glycol 3350 17 gram oral powder packet 17 g PO DAILYPRN PRN constipation #0 ea 02/13/25
Home Medication Changes
Pending Results: No
[2025-02-14] MEDS: NOVOLOG FLEXPEN 4 UNITS SC (09:14)
--- NOTE | 2025-02-14 10:46 | CM ---
Addendum entered by Cindy Cortez RN 02/14/25 11:30:
Spoke with Rishi he agrees with discharge plan and IMM He will speak with family.
Original Note:
MD entered order for discharge.
Spoke with Ruddy at [facility] . Pt is accepted today . [facility] requested a paper script for SN PT OT with dx for [facility] VN (not in care port ) PT provided patient with walker. Requested MD paper script for
walker and VN .
LM with Rishi [phone].
Ambulance requested Medical nec form completed.
[facility]
report [phone]
fax [phone]
PLAN To [facility] via ambulance
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
--- NOTE | 2025-02-14 11:38 | W.PN.UPDATE ---
Update Note
Progress Note Update
chart reviewed. patient was sleeping when i attempted to see him . unable to rouse sufficiently to talk. discussed with nursing. patient is leaving today for local nursing facility. noted that last evening he received 7.5 mg zyprexa. he also
received several prns of zyprexa. would reduce that to 5 mg going forward to try to minimize side effects. he has had some peaceful moments here. hopefully the consistency of staff and milieu at [place] will help him w adjustment.
--- NOTE | 2025-02-14 12:19 | PN.CDI ---
CDI
- -
CDI:
Physician Documentation Request
Admit Date: 02/08/25 14:37
Dear Doctor Camron,
Patient presented with behavioral issues.
Sodium values:
Laboratory Tests
02/08/25 02/12/25
10:55 07:02
Sodium 131 L 132 L
Could you please provide a diagnosis that supports the above lab abnormalities and additional evaluation/monitoring:
Hyponatremia
Abnormal lab value clinically insignificant
Other
Use of terms such as suspected, likely, concern for, or probable (associated with a specific diagnosis that is being evaluated, monitored, or treated as if it exists) are acceptable and can be coded in the inpatient setting, when documented at the
time of discharge.
Thank you,
Neetu Ramos RN, BSN
CDI Specialist
tiger text
Please use your independent medical judgment in providing your response.
[2025-02-14 12:26] LABS: Glucose - Point of Care 65 mg/dl (70-99)
[2025-02-14] MEDS: NOVOLOG FLEXPEN SC (12:37)
[2025-02-14 12:43] LABS: Glucose - Point of Care 80 mg/dl (70-99)
== END 2025-02-14 13:01 | disposition home or self-care (01) | DRG 637 ==
LOC: 3 WEST ACU 14:37
PROVIDERS: Internal Medicine; Nurse Practitioner Family; Physician Assistant; ADMITTING PHYSICIAN Internal Medicine; ATTENDING PHYSICIAN Hospitalist; CONSULT PHYSICIAN Psychiatry & Neurology Psychiatry; EMERGENCY PHYSICIAN Emergency Medicine
DX: E11.65 Type 2 diabetes mellitus with hyperglycemia (principal); J69.0 Pneumonitis due to inhalation of food and vomit; E87.1 Hypo-osmolality and hyponatremia; F03.911 Unspecified dementia, unspecified severity, with agitation; T83.9XXA Unspecified complication of genitourinary prosthetic device, implant and graft, initial encounter; Z87.820 Personal history of traumatic brain injury; D64.9 Anemia, unspecified; I10 Essential (primary) hypertension; Z88.6 Allergy status to analgesic agent; Z88.0 Allergy status to penicillin; E87.5 Hyperkalemia; Z79.84 Long term (current) use of oral hypoglycemic drugs; Z79.4 Long term (current) use of insulin; R62.7 Adult failure to thrive; E78.5 Hyperlipidemia, unspecified; F17.210 Nicotine dependence, cigarettes, uncomplicated; N31.9 Neuromuscular dysfunction of bladder, unspecified; Y84.6 Urinary catheterization as the cause of abnormal reaction of the patient, or of later complication, without mention of misadventure at the time of the procedure; Z11.52 Encounter for screening for COVID-19
CPT/HCPCS: 70450; 71045; 71046; 80048; 80053; 80306; 81003; 81015; 82607; 82728; 82746; 82947; 82962; 83540; 83550; 83605; 85025; 85027; 85045; 87040; 87070; 87086; 87147; 87186; 87205; 87502; 87811; 92610; 93005; 96360; 99285; 99406